=== PATIENT | male | born 1970 | race Caucasian/White ===

== ENCOUNTER 2023-02-08 06:52 | Outpatient (OUT) | payer OTHER, SELFPAY | END 2023-02-08 06:53 | disposition home or self-care (01) | LOC: SLEEP 06:52 | PROVIDERS: PCP Psychiatry & Neurology Neurology; Visit Provider Psychiatry & Neurology Neurology | DX: G47.33 Obstructive sleep apnea (adult) (pediatric) (principal); G47.11 Idiopathic hypersomnia with long sleep time | CPT/HCPCS: 95805 ==

== ENCOUNTER 2023-08-25 10:45 | Outpatient (OUT) | payer OTHER, SELFPAY | END 2023-08-25 10:46 | disposition home or self-care (01) | LOC: LAB 10:45 | PROVIDERS: PCP Psychiatry & Neurology Neurology; Visit Provider Nurse Practitioner Family | DX: E29.1 Testicular hypofunction (principal) | CPT/HCPCS: 36415; 84402; 84403 ==

== ENCOUNTER 2024-10-05 09:08 | Outpatient (OUT) | payer OTHER, SELFPAY ==
--- OUTSIDE RECORDS SUMMARY | 2024-10-05 09:13 | XMS_ITS | Encounter Summary ---
Author Organization [facility] Address [address] [place] [address] Care Team Providers Care Treating Plant Pumper Name Role Phone Ron Amaro MD Unavailable [phone] Glo Martinez CNP Primary Care Provider [phone] Source Comments In the event this information is protected by the Federal Confidentiality of Alcohol and Drug AbusePatient Records regulations: The Federal rules restrict any use of the information to criminally investigate or prosecute any alcohol or drug abuse patient.[facility] Encounter Details Date Type Department Care Team (Late st Contact Info) Description 05/23/2023 Patient Msg Urology [address] [phone] Katrina Frias, HUA.VICE PRESIDENT BUSINESS & CORPORATE DEVELOPMENT [address], [address] [place] [address] Appointment Request Social History Tobacco Use Types Packs/Day Years Used Date Smoking Tobacco: Never Smokeless Tobacco: Never Alcohol Use Standard Drinks/Week Comments Not Currently 0 (1 standard drink = 0.6 oz pur e alcohol) Area Deprivation Index Answer Date Dwayne rded National Score (1-100), lower number is lower [facility] 78 09/14/2022 State Score (1-10), lower number is lower risk 6 09/14/2022 Data from: https://www.neighborhoodatlas.medicine.[facility].edu/. Last address used for calculation [address] 09/14/2022 Sex and Gender Information Value Date Recorded Sex Assigned at Male 07/04/2021 2:44 PM EDT Legal Sex Male 9:49 AM EST Gender Identity Male 06/07/2021 5:24 PM EST Sexual Orientation Not on file documented as of this encounter Plan of Treatment Upcoming Encounters Date Type Department Care Team (Late st Contact Info) Description 01/16/2025 10:40 AM EDT Office Visit Urology [address] [phone] Katrina Frias, PREPPER.[address] [address] History of Penile Cancer documented as of this encounter Visit Diagnoses Not on filedocumented in this encounter Care Teams Treating Plant Pumper Relationship Specialty Start Date End Date Glo Martinez CNP [address] [place] [phone] PCP - General Family Medicine 06/15/21 Ron Amaro MD Urology 06/02/21 documented as of this encounter
--- OUTSIDE RECORDS SUMMARY | 2024-10-05 09:13 | XMS_ITS | Clinical Summary ---
Author Organization [facility] Address [address] [place] [address] Care Team Providers Care Paper Cap Machine Operator Name Role Phone Unavailable Primary Care Provider Unavailabl e Medications losartan (COZAAR) 50 MG tabletIndications :Primary hypertension TAKE 1 TABLET DAILY 90 tablet 05/17/2024 Active escitalopram (LEXAPRO) 20 MG tablet TAKE 1 TABLET DAILY 90 tablet 05/27/2024 Active Encounters Date Type Department Care Team Description 08/21/2024 Refill [facility] Primary Care [address] [address] Glo Martinez APRN - DEVELOPMENT ADMINISTRATOR Medication Refill 08/12/2024 Refill [facility] [address] [address] Glo Martinez APRN - DEVELOPMENT ADMINISTRATOR Medication Refill 07/25/2024 Refill [facility] [address] [address] Glo Martinez APRN - DEVELOPMENT ADMINISTRATOR Medication Refill from Last 3 Months Social History Tobacco Use Types Packs/Day Years Used Date Smoking Tobacco: Never Assessed Sex and Gender Information Value Date Recorded Sex Assigned at Not on file Legal Sex Male 1:41 AM EST Gender Identity Not on file Sexual Orientation Not on file Plan of Treatment Not on file
--- OUTSIDE RECORDS SUMMARY | 2024-10-05 09:13 | XMS_ITS | Clinical Summary ---
Author Organization [facility] Address [address] [place], [place] [id number] Care Team Providers Care Technical Sales Engineer Name Role Phone Ron Amaro MD Unavailable Glo Martinez CNP Primary Care Provider Allergies Active Allergy Reactions Criticality Noted Date Comments Aspirin Swelling 05/31/2021 Ibuprofen Swelling 05/31/2021 Medications empagliflozin (JARDIANCE) 10 mg tablet Take 10 mg by mouth daily with breakfast. Active escitalopram oxalate (LEXAPRO) 20 mg tablet Take 20 mg by mouth once daily. Active fenofibrate nanocrystallized (TRICOR) 145 mg tablet Take 145 mg by mouth once daily. Active hydroCHLOROthiazide (HYDRODIURIL, ESIDRIX) 25 mg tablet Take 25 mg by mouth once daily. Active losartan (COZAAR) 50 mg tablet Take 50 mg by mouth once daily. Active lovastatin 40 mg tablet Take 40 mg by mouth daily at bedtime. Active montelukast (SINGULAIR) 10 mg tablet Take 10 mg by mouth daily at bedtime. Active naproxen (NAPROSYN) 500 mg tablet Take 500 mg by mouth twice daily with meals. Active sildenafil (VIAGRA) 100 mg tablet Take 100 mg by mouth as needed. Active SITagliptin-metFORM IN (JANUMET) 50-1,000 mg per tablet Take 1 tablet by mouth twice daily with meals. Active syringe w-needle,disposab,3 mL (MONOJECT 3CC SYR [id number]/2 MISC) Active fexofenadine (VERONICA) 180 mg tablet Take 180 mg by mouth. 05/11/19 22 Active testosterone cypionate (DEPO-TESTOSTERONE) 200 mg/mL injection INJECT 1 ML IN THE MUSCLE TWICE PER WEEK 08/11/19 22 Active emtricitabine-tenof ovir disoproxil fumerate (TRUVADA) 200-300 mg per tablet 04/19/20 23 Active semaglutide (OZEMPIC) 0.25 mg or 0.5 mg(2 mg/1.5 mL) pen Inject 1 mg subcutaneously one time a week. 07/12/19 24 Active modafinil (PROVIGIL) 200 mg tablet Take 1 tablet by mouth once daily. 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 07/09/2021 Assessment & Plan (07/09/2021 9:51 AM EDT): Assessment: Testicular CA 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 Assessment & Plan (07/09/2021 9:51 AM EDT): Assessment: Upcoming Procedure 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 Morbid obesity with BMI of 40.0-44.9, adult 10/2021 Assessment & Plan (07/09/2021 9:51 AM EDT): Assessment: BMI 40.75 Family History Medical History Relation Comments Cataract Father Cancer Maternal Uncle No Ocular Disease Mother Cataract Paternal Grandfather Diabetes Paternal Grandfather Glaucoma Paternal Grandfather Hypertension Paternal Grandfather Relation Status Comments Father Maternal Uncle Mother Paternal Grandfather Social History Tobacco Use Types Packs/Day Years Used Date Smoking Tobacco: Never Smokeless Tobacco: Never Tobacco Cessation:Counseling Given: Not Answered Alcohol Use Standard Drinks/Week Comments Not Currently 0 (1 standard drink = 0.6 oz pur e alcohol) Area Deprivation Index Answer Date Dwayne rded National Score (1-100), lower number is lower [facility] 78 09/14/2022 State Score (1-10), lower number is lower risk 6 09/14/2022 Data from: https://www.neighborhoodatlas.medicine.[facility].edu/. Last address used for calculation [address] 09/14/2022 Sex and Gender Information Value Date Recorded Sex Assigned at Male 07/04/2021 2:44 PM EDT Legal Sex Male 9:49 AM EST Gender Identity Male 06/07/2021 5:24 PM EST Sexual Orientation Not on file Last Filed Vital Signs Vital Sign Reading Time Taken Comments Blood Pressure 160/78 12/07/2022 12:53 PM EDT Pulse 88 12/07/2022 12:53 PM EDT Temperature 37.2 C (99 F) 07/13/2021 12:35 PM EDT Respiratory Rate 18 07/13/2021 1:05 PM EDT Oxygen Saturation 99% 07/13/2021 1:05 PM EDT Inhaled Oxygen Concentration - - Weight 110.8 kg (244 lb 4.3 oz) 024 10:44 AM EDT Height 175.3 cm (5' 9 ) 01/17/2024 10:4 4 AM EDT Body Mass Index 36.07 01/17/2024 10:44 AM EDT Plan of Treatment Upcoming Encounters Date Type Department Care Team (Late st Contact Info) Description 01/16/2025 10:40 AM EDT Office Visit Urology [address] [address] Katrina Frias P, POWER TONG OPERATOR.FRAME MAKER [address] [place] [address], [address] [address] History of Penile Cancer Health Maintenance Due Date Last Done Comments HbA1C 09/05/1976 Diabetic Foot Exam 09/05/1981 Urine Albumin:Creatinine Ratio 09/05/1981 Annual PCP Team Chronic Dise ase Visit 09/05/1989 Anxiety Screening 09/05/1989 Depression Screening 09/05/1989 HIV Screening 09/05/1989 Hepatitis C Screening 09/05/1989 LDL Cholesterol 09/05/1989 CT Colonography 09/05/2016 Cologuard (FIT-DNA) 09/05/2016 Colonoscopy 09/05/2016 Colorectal Cancer Screening 09/05/2016 Fecal Occult Blood 09/05/2016 Sigmoidoscopy 09/05/2016 Dilated Retinal Exam 09/15/2023 09/14/2022, 09/07/19 22 Covid-19 Vaccine (2023-2 5 season) 2023 03/09/2023, 03/08/2022, 09/17/2021, Additional history exists Influenza Vaccine (Season Ended) 2024 03/09/2023, 11/26/2021, 02/18/2021, Additional history exists DTaP,Tdap,Td Vaccine (3 - Td or Tdap) 03/09/2033 03/09/2023, 09/17/2021 Hepatitis B Vaccine Completed 05/28/2003, 12/11/2002, 11/08/2002 Pneumococcal Vaccine: 50+ Completed 11/26/2021 Shingrix Vaccine Completed 11/26/2021, 09/17/2021 [place] [address] [facility] SUPERMED PPO [facility] Care Teams Technical Sales Engineer Relationship Specialty Start Date End Date Glo Martinez CNP [address] [place] [address] [place] [address] PCP - General Family Medicine 06/15/21 Ron Amaro MD Urology 06/02/21
--- OUTSIDE RECORDS SUMMARY | 2024-10-05 09:13 | XMS_ITS | Encounter Summary ---
Author Organization [facility] Address [address] [place] [address] Care Team Providers Care Dowel Pointer Name Role Phone Ron Amaro MD Unavailable [phone] Glo Martinez CNP Primary Care Provider [phone] Source Comments In the event this information is protected by the Federal Confidentiality of Alcohol and Drug AbusePatient Records regulations: The Federal rules restrict any use of the information to criminally investigate or prosecute any alcohol or drug abuse patient.[facility] Encounter Details Date Type Department Care Team (Late st Contact Info) Description 10/04/2021 Get Medical Advice Urology [address] [phone] Edgar Cardona MD [address] [place] [address] Disability paper work Social History Tobacco Use Types Packs/Day Years Used Date Smoking Tobacco: Never Smokeless Tobacco: Never Alcohol Use Standard Drinks/Week Comments Not Currently 0 (1 standard drink = 0.6 oz pur e alcohol) Area Deprivation Index Answer Date Dwayne rded National Score (1-100), lower number is lower [facility] 73 09/09/2021 State Score (1-10), lower number is lower risk N ot on file 09/09/2021 Data from: https://www.neighborhoodatlas.medicine.[facility].edu/. Last address used for calculation [address] 09/09/2021 Sex and Gender Information Value Date Recorded Sex Assigned at Male 07/04/2021 2:44 PM EDT Legal Sex Male 9:49 AM EST Gender Identity Male 06/07/2021 5:24 PM EST Sexual Orientation Not on file COVID-19 Exposure Response Date Recorded In the last 10 days, have yo u been in contact with someone who was confirmed or suspected to have Coronavirus/COVID-19? No / Unsure 09/17/2021 12:27 PM EDT documented as of this encounter Plan of Treatment Upcoming Encounters Date Type Department Care Team (Late st Contact Info) Description 01/16/2025 10:40 AM EDT Office Visit Urology [address] [place] [address] Katrina Frias, TAILER IN.LINTER TENDER [address] [place] [phone] History of Penile Cancer documented as of this encounter Visit Diagnoses Not on filedocumented in this encounter Care Teams Dowel Pointer Relationship Specialty Start Date End Date Glo Martinez CNP [address] [place] [phone] PCP - General Family Medicine 06/15/21 Ron Amaro MD Urology 06/02/21 documented as of this encounter
--- OUTSIDE RECORDS SUMMARY | 2024-10-05 09:13 | XMS_ITS | Encounter Summary ---
Author Organization [facility] Address [address] [place] [address] Care Team Providers Care General Supervisor Name Role Phone Unavailable Primary Care Provider Unavailabl e Reason for Visit * Reason Comments Medication Refill Encounter Details Date Type Department Care Team (Late st Contact Info) Description 08/12/[address] [facility] Primary Care [address] [facility] [address] [place] [address] Glo Martinez, JACK FRAME TENDER - PET CARE ASSOCIATE [address] [facility] [address] [place] [phone] Medication Refill Social History Tobacco Use Types Packs/Day Years Used Date Smoking Tobacco: Never Assessed Sex and Gender Information Value Date Recorded Sex Assigned at Not on file Legal Sex Male 1:41 AM EST Gender Identity Not on file Sexual Orientation Not on file documented as of this encounter Plan of Treatment Not on file documented as of this encounter Visit Diagnoses Diagnosis Primary hypertension Unspecified essential hypertension documented in this encounter
--- OUTSIDE RECORDS SUMMARY | 2024-10-05 09:13 | XMS_ITS | Clinical Summary ---
Author Organization [facility] Address [address] [place] [address] Care Team Providers Care Supervisor Cigar Making Hand Name Role Phone Glo Martinez NURSE OUTREACH CASE MANAGER Unavailable Allergies Active Allergy Reactions Criticality Noted Date Comments Aspirin Swelling,Unknown 05/31/2021 Ibuprofen Swelling,Unknown 05/31/2021 Medications empagliflozin (Jardiance) 10 MG Take 10 mg by mouth in the morning. Take with meals. Active emtricitabine-tenof ovir DF (Truvada) 200-300 MG tablet 04/19/20 23 Active escitalopram (Lexapro) 20 MG tablet 1 (one) time each day at the same time Active fenofibrate (Tricor) 145 MG tablet Take 145 mg by mouth Daily Active True Metrix Blood Glucose Test test strip USE DIRECTED TO CHECK BLOOD SUGAR DAILY 09/01/19 24 Active hydroCHLOROthiazide (HYDRODiuril) 25 MG tablet 1 (one) time each day at the same time Active TRUEplus Lancets 28G misc USE ONCE DAILY 09/01/19 24 Active losartan (Cozaar) 50 MG tablet 1 (one) time each day at the same time Active lovastatin (Mevacor) 20 MG tablet 07/26/19 24 Active montelukast (Singulair) 10 MG tablet 1 (one) time each day at the same time Active Ozempic, 1 MG/DOSE, 4 MG/3ML solution pen-injector 07/26/19 24 Active sildenafil (Viagra) 100 MG tablet TAKE 1 TABLET BY MOUTH 30 TO 60 MINUTES PRIOR TO DESIRED INTIMACY Active Janumet 50-1000 MG tablet Take 1 tablet by mouth in the morning and 1 tablet in the evening. Take with meals. Active sulfamethoxazole-tr imethoprim (Bactrim DS) 800-160 MG per tablet Take 1 tablet by mouth in the morning and 1 tablet before bedtime. Active testosterone cypionate (Depo-Testosterone) 200 MG/ML injection INJECT 1 ML ONCE A WEEK 09/01/19 24 Active predniSONE (Deltasone) 20 MG tabletIndications:P haryngitis, unspecified etiology,Non-recurr ent acute serous otitis media of both ears 3 pills days 1 and 2, 2 pills days 3 and 4, 1 pill day 5 and 6, 1/2 pill days 7 and 8. 13 tablet 09/10/19 24 Active modafinil (Provigil) 200 MG tabletIndications:D aytime hypersomnolence Take 1 tablet (200 mg) by mouth in the morning. 30 tablet 2 03/20/20 24 Active methylphenidate (Ritalin) 5 MG tabletIndications:D aytime hypersomnolence Take 1 tablet (5 mg) by mouth Daily 30 tablet 09/18/19 25 Active methylphenidate (Ritalin) 5 MG tablet Take 5 mg by mouth Daily as needed 08/10/19 25 025 Discontin ued(Reord er) Encounters Date Type Department Care Team Description 09/17/2024 Refill [facility] [address] [place] [phone] Skylar Salomon MA Daytime hypersomnolence (Primary Dx) from Last 3 Months Social History Tobacco Use Types Packs/Day Years Used Date Smoking Tobacco: Unknown Tobacco Cessation:Counseling Given: Not Answered Sex and Gender Information Value Date Recorded Sex Assigned at Not on file Legal Sex Male 6:46 PM EDT Gender Identity Not on file Sexual Orientation Not on file Last Filed Vital Signs Vital Sign Reading Time Taken Comments Blood Pressure 148/84 01/24/2024 3:29 PM EDT Pulse 79 01/24/2024 3:29 PM EDT Temperature 36.4 C (97.5 F) 09/10/2023 12:00 PM EDT Respiratory Rate - - Oxygen Saturation 96% 09/10/2023 12:00 PM EDT Inhaled Oxygen Concentration - - Weight 111 kg (245 lb) 01/24/2024 3:29 PM EDT Height 175.3 cm (5' 9 ) 01/24/2024 3:29 PM EDT Body Mass Index 36.18 01/24/2024 3:29 PM EDT Plan of Treatment Health Maintenance Due Date Last Done Comments CT Colonography 1971 FIT-DNA 1971 FIT 1971 FOBT 1971 Sigmoidoscopy 1971 Influenza Vaccine (Season Ended) 2024 03/09/2023, 11/26/2021, 02/18/2021, Additional history exists Colonoscopy 12/09/2031 12/08/2021 Colorectal Cancer Screening 12/09/2031 Insurance [employer] Care Teams Supervisor Cigar Making Hand Relationship Specialty Start Date End Date Glo Martinez NP [address] [place] [phone] Referring Physician Family Medicine 01/24/24
--- OUTSIDE RECORDS SUMMARY | 2024-10-05 09:13 | XMS_ITS | CCD ---
Author Organization [facility] Care Team Providers Care Assistant Center Manager Name Role Phone Estrella Amaro Unavailable Jasmeet Martinez Primary Care Provider [phone] Jasmeet Martinez Primary Care Physician Estrella Amaro Unavailable Jasmeet Martinez Primary Care Provider REQUEST, NONE LISTED Primary Care Unavaila ble PERLAALEAH Admitting Unavailable PERLAALEAH KINCAID Attending Unavailable REQUEST, NONE LISTED Primary Care Unavaila ble PERLAALEAH Admitting Unavailable PERLA, ALEAH Attending Unavailable PERLAALEAH Consulting Unavailable REQUEST, NONE LISTED Primary Care Unavaila vicente AMARO, DR ESTRELLA Lim Admitting Unavailable ALEAH DUNCAN Consulting Unavailable ENDER, DR ESTRELLA Lim Attending Unavailable MISC, DR FOSTER Attending Unavailable MISC, DR FOSTER Consulting Unavailable MISC, DR FOSTER Admitting Unavailable REQUEST, NONE LISTED Primary Care Unavaila Estrella Bynum Unavailable Estrella Amaro MD Unavailable [phone] Jasmeet Martinez Primary Care Provider JASMEET MARTINEZ Primary Care Unavailable JOURDAN FRIAS Referring Unavailable JOURDAN FRIAS Attending Unavailable EDGAR DO Referring Unavailabl e JASMEET MARTINEZ Primary Care Unavailable JOURDAN FRIAS Attending Unavailable ANETA KUMAR Attending Unavailable CLARICE CIFUENTES Attending Unavailable Rodney Markham Attending Unavailable Rodney Markham Referring Unavailable Rodney Markham Admitting Unavailable Rodney Markham Attending Unavailable Juan GLYNN, Jasmeet Unavailable Allergies Allergy Classification Reported Allergen(s) Allergy Type Date of Onset Reaction(s) Facility (20 sources) Aspirin; Translations: [aspirin] Drug Allergy 2 Swelling, Swelling (morphologic abnormality) [facility] (20 sources) Ibuprofen; Translations: [ibuprofen] Drug Allergy 2 Swelling, Swelling (finding), Unknown [facility] (2 sources) Aspirin Drug Allergy 4 [facility] (2 sources) Ibuprofen Drug Allergy 4 [facility] (5 sources) Aluminum aspirin Drug Allergy 2 Swelling, Unknown [facility] Medications Current Medications Medication Drug Class(es) Dates Sig (Normalized) Sig (Original) busPIRone hydrochloride 10 mg oral tablet (1 source) Start: 06-19-2024 Buspirone 10 mg tablet Active MG PO June 19, 2024 12:00am cephalexin 500 mg oral capsule (4 sources) Cephalosporin Antibacterial Start: 08-23-2021 End: 08-28-2021 take 1 capsule by mouth three times daily cephALEXin (KEFLEX) 500 mg capsule Take 1 capsule by mouth three times daily for 5 days. 15 capsule 0 08/23/2021 08/28/2021 Active Start: 07-13-2021 End: 07-20-2021 take 1 capsule by mouth three times daily cephALEXin (KEFLEX) 500 mg capsule Take 1 capsule by mouth three times daily for 7 days. 21 capsule 0 07/13/2021 07/20/2021 Active Comment on above: Take 1 capsule by mo [facility] three times daily for 7 days. Take 1 capsule by mo [facility] three times daily for 5 days. clobetasol propionate 0.5 mg/ml topical cream (10 sources) Corticosteroid Start: 03-06-2023 End: 07-12-2023 clobetasol (TEMOVATE) 0.05 % cream Indications: Lichen sclerosus of penis Apply to affected area two times a day. Use for a week at a time as needed 45 g 3 07/12/2023 Active Start: 08-15-2022 clobetasol (TE MOVATE) 0.05 % cream Apply to affected area twice daily. Use for a week at a time as needed 45 g 3 08/15/2022 Active Comment on above: Apply to affected ar ea twice daily. Use for a week at a time as needed Apply to affected ar ea two times a day. Use for a week at a time as needed empagliflozin 10 mg oral tablet (20 sources) Sodium-Glucose Cotransporter 2 Inhibitor Start: 06-19-2024 Empagliflozin (Jardiance) 10 mg tablet Active MG PO June 19, 2024 12:00am Start: 05-11-2021 take 1 tablet by tony th once daily in the morning Jardiance 10 mg oral tablet 10 mg = 1 tab(s), Oral, qAM, Refills(s) 0, Blood glucose Start Date: 05/11/21 Status: Ordered Comment on above: Take 10 mg by mouth daily with breakfast. emtricitabine 200 mg / tenofovir disoproxil fumarate 300 mg oral tablet (9 sources) Human Immunodeficiency Virus Nucleoside Analog Reverse Transcriptase Inhibitor Start: 04-19-2023 emtricitabine-teno fovir DF (Truvada) 200-300 MG tablet 04/19/2023 Active Start: 04-19-2023 emtricitabine- tenofovir disoproxil fumerate (TRUVADA) 200-300 mg per tablet 04/19/2023 Active Emtricitabine-Tenofovir (Tdf) 200-300 mg tablet (1 source) Start: 06-19-2024 Emtricitabine-Tenofovir (Tdf) 200-300 mg tablet Active TAB PO June 19, 2024 12:00am escitalopram 20 mg oral tablet (20 sources) Serotonin Reuptake Inhibitor Start: 06-19-2024 Escitalopram Oxalate 20 mg tablet Active MG PO June 19, 2024 12:00am Start: 05-11-2021 take 1 tablet by tony th once daily escitalopram 20 mg Tab 20 mg = 1 tab(s), Oral, Daily, Refills(s) 0, Depression Start Date: 05/11/21 Status: Ordered Comment on above: Take 20 mg by mouth once daily. fenofibrate 145 mg oral tablet (20 sources) Peroxisome Proliferator Receptor alpha Agonist Start: 2021 take 1 tablet by mouth once daily fenofibrate 145 mg Tab 145 mg = 1 tab(s), Oral, Daily, Refills(s) 0, High cholesterol Start Date: 05/11/21 Status: Ordered Comment on above: Take 145 mg by mouth once daily. Fenofibrate Nanocrystallized 145 mg tablet (1 source) Start: 2024 Fenofibrate Nanocrystallized 145 mg tablet Active MG PO June 19, 2024 12:00am fexofenadine hydrochloride 180 mg oral tablet (20 sources) Histamine-1 Receptor Antagonist Start: 2021 fexofenadine (VERONICA) 180 mg tablet Take 180 mg by mouth. 05/11/2021 Active Comment on above: Take 180 mg by mouth . hydroCHLOROthiazide 25 mg oral tablet (20 sources) Thiazide Diuretic Start: 2024 Hydrochlorothiazide 25 mg tablet Active MG PO June 19, 2024 12:00am Start: 05-11-2021 take 1 tablet by tony th once daily hydrochlorothiazide 25 mg Tab 25 mg = 1 tab(s), Oral, Daily, Refills(s) 0, High blood pressure Start Date: 05/11/21 Status: Ordered Comment on above: Take 25 mg by mouth once daily. losartan potassium 50 mg oral tablet (20 sources) Angiotensin 2 Receptor Timmy Start: 06-19-2024 Losartan 50 mg tablet Active MG PO June 19, 2024 12:00am Start: 05-11-2021 take 1 tablet by tony th once daily losartan 50 mg Tab 50 mg = 1 tab(s), Oral, Daily, Refills(s) 0, High blood pressure Start Date: 05/11/21 Status: Ordered Comment on above: Take 50 mg by mouth once daily. lovastatin 20 mg oral tablet (20 sources) HMG-CoA Reductase Inhibitor Start: 07-26-2023 Lovastatin 20 mg tablet Active MG PO June 19, 2024 12:00am Start: 05-11-2021 take 1 tablet by tony th once daily lovastatin 40 mg Tab 40 mg = 1 tab(s), Oral, Daily, Refills(s) 0, High cholesterol Start Date: 05/11/21 Status: Ordered Comment on above: Take 40 mg by mouth daily at bedtime. metFORMIN hydrochloride 1000 mg / SITagliptin 50 mg oral tablet (20 sources) Biguanide, Dipeptidyl Peptidase 4 Inhibitor Start: 06-19-2024 Sitagliptin Phos-Metformin (Janumet) 50-1,000 mg tablet Active TAB PO June 19, 2024 12:00am Start: 05-11-2021 take 1 tablet by tony th twice daily Janumet XR 50 mg-1000 mg oral tablet, extended release 1 tab(s), Oral, BID, Refill(s) 0, Blood glucose Start Date: 05/11/21 Status: Ordered Start: 05-11-2021 take 1 tablet by tony twice daily Janumet XR 50 mg-1000 mg oral tablet, extended release 1 tab(s), Oral, BID, Refill(s) 0, Blood glucose Start Date: 05/11/21 Status: Ordered Comment on above: Take 1 tablet by tony twice daily with meals. methylphenidate hydrochloride 5 mg oral tablet (2 sources) Central Nervous System Stimulant Start: 08-10-19 End: 09-18-19 take 1 tablet by mouth once daily methylphenidate (Ritalin) 5 MG tablet Indications: Daytime hypersomnolence Take 1 tablet (5 mg) by mouth Daily 30 tablet 09/17/2024 Active modafinil 200 mg oral tablet (11 sources) Sympathomimetic-l ellie Agent Start: 03-20-20 Modafinil 200 mg tablet Active MG PO June 19, 2024 12:00am Start: 05-28-2023 End: 03-20-2024 take 1 tablet by mouth in the morning modafinil (Provigil) 200 MG tablet Take 200 mg by mouth in the morning. 05/28/2023 03/20/2024 Discontinued (Reorder) Start: 05-28-2023 take 1 tablet by tnoy in the morning modafinil (Provigil) 100 MG tablet Take 100 mg by mouth in the morning. 05/28/2023 Active Comment on above: Take 1 tablet by tony once daily. montelukast 10 mg oral tablet (20 sources) Leukotriene Receptor Antagonist Start: 06-19-2024 Montelukast 10 mg tablet Active MG PO June 19, 2024 12:00am Start: 05-11-2021 take 1 tablet by tony once daily montelukast 10 mg Tab 10 mg = 1 tab(s), Oral, Daily, Refills(s) 0, Allergy symptoms Start Date: 05/11/21 Status: Ordered Comment on above: Take 10 mg by mouth daily at bedtime. naproxen 500 mg oral tablet (20 sources) Nonsteroidal Anti-inflammatory Drug take 1 tablet by mouth twice daily at mealtime naproxen (NAPROSYN) 500 mg tablet Take 500 mg by mouth twice daily with meals. Active Comment on above: Take 500 mg by mouth twice daily with meals. Ozempic, 1 MG/DOSE, 4 MG/3ML solution pen-injector (5 sources) Start: 07-26-19 Ozempic, 1 MG/DOSE, 4 MG/3ML solution pen-injector 07/26/2023 Active polyethylene glycol 3350 [id number] mg / potassium chloride 1480 mg / sodium bicarbonate 5720 mg / sodium chloride 89512 mg powder for oral solution (1 source) Osmotic Laxative Start: 11-02-19 NuLYTELY Stover oral powder for reconstitution See Instructions, 1 EA, Refill(s) 0, Prior to colonoscopy., [id number], 175, cm, 11/01/21 15:49:00 EDT, Height/Length Dosing, 121.9, kg, 11/01/21 15:49:00 EDT, Weight Dosing Start Date: 11/01/21 Status: Ordered predniSONE 20 mg oral tablet (5 sources) Start: 09-10-19 predniSONE (Deltasone) 20 MG tablet Indications: Pharyngitis, unspecified etiology , Non-recurrent acute serous otitis media of both ears 3 pills days 1 and 2, 2 pills days 3 and 4, 1 pill day 5 and 6, 1/2 pill days 7 and 8. 13 tablet 09/10/2023 Active 0.25 mg, 0.5 mg dose 1.5 ml semaglutide 1.34 mg/ml pen injector (20 sources) Start: 07-12-19 semaglutide (OZEMPIC) 0.25 mg or 0.5 mg(2 mg/1.5 mL) pen Inject 1 mg subcutaneously one time a week. 07/12/2023 Active Start: 05-11-2021 End: 07-12-2023 Ozempic 2 mg/1.5 mL (0.25 mg or 0.5 mg dose) subcutaneous solution 0.25 mg, SubCutaneous, qWeek, Refill(s) 0 Start Date: 05/11/21 Status: Ordered Comment on above: Inject 0.25 mg subcu taneously one time a week. Inject 1 mg subcutan eously one time a week. Semaglutide (1 source) Start: 06-19-2024 Semaglutide (Ozempic) 1 mg/dose (4 mg/3 mL) pen injector Active MG SUBCUT June 19, 2024 12:00am sildenafil 100 mg oral tablet (20 sources) Phosphodiesterase 5 Inhibitor Start: 06-19-2024 Sildenafil 100 mg tablet Active MG PO June 19, 2024 12:00am Start: 05-11-2021 take 1 tablet by tony once daily sildenafil 100 mg Tab 100 mg = 1 tab(s), Oral, Daily, Refills(s) 0, Erectile dysfunction Start Date: 05/11/21 Status: Ordered sildenafil ([facility]) 100 MG tablet TAKE 1 TABLET BY MOUTH 30 TO 60 MINUTES PRIOR TO DESIRED INTIMACY Active Comment on above: Take 100 mg by mouth as needed. sulfamethoxazole 800 mg / trimethoprim 160 mg oral tablet (14 sources) Dihydrofolate Reductase Inhibitor Antibacterial, Sulfonamide Antimicrobial Start: 09-05-2021 End: 07-11-2022 sulfamethoxazole-t rimethoprim (BACTRIM DS,SEPTRA DS) 800-160 mg per tablet Start: 09-05-2021 End: 09-12-2021 Bactrim D.S. 800 mg-160 mg T ab 1 tab(s), Oral, BID for 7 day(s), 14 tab(s), Refill(s) 0, [id number], 175, cm, 09/05/21 12:47:00 EDT, Height/Length Dosing, 124.7, kg, 09/05/21 12:47:00 EDT, Weight Dosing Start Date: 09/05/21 Stop Date: 09/12/21 Status: Ordered syringe w-needle,disposab,3 mL (MONOJECT 3CC SYR 20CU4-4/2 MISC) (20 sources) syringe w-needle ,disposab,3 mL (MONOJECT 3CC SYR 93VP8-8/2 MISC) Active syringe w-needle ,disposab,3 mL (MONOJECT 3CC SYR 24UD7-9/2 MISC) 1 ml testosterone cypionate 200 mg/ml injection (20 sources) Androgen Start: 06-19-2024 Testosterone C ypionate 200 mg/mL oil Active MG SUBCUT June 19, 2024 12:00am Start: 09-01-2023 testosterone c ypionate (Depo-Testosterone) 200 MG/ML injection INJECT 1 ML ONCE A WEEK 09/01/2023 Active Start: 08-10-2021 testosterone c ypionate (DEPO-TESTOSTERONE) 200 mg/mL injection INJECT 1 ML IN THE MUSCLE TWICE PER WEEK 08/10/2021 Active End: 03-23-2022 testosterone 200 mg pllt by IMPLANTATION route. 0 03/23/2022 Discontinued End: 2021 testosterone cypionate 200 m g/mL kit Inject intramuscularly. 0 2021 Discontinued Comment on above: Inject intramuscular ly. by IMPLANTATION rout e. INJECT 1 ML IN THE M USCLE TWICE PER WEEK testosterone cypionate 200 mg/mL IM Pauline (8 sources) Start: 05-11-2021 testosterone cypionate 200 mg/mL IM Pauline 200 mg = 1 mL, IntraMuscular, ThuSun, Refills(s) 0, Prophylaxis Start Date: 05/11/21 Status: Ordered Completed/Discontinued Medications Medication Drug Class(es) Dates Sig (Normalized) Sig (Original) benoxinate hydrochloride 4 mg/ml / fluorescein sodium 2.5 mg/ml ophthalmic solution (2 sources) Diagnostic Dye Start: 09-14-2022 End: 09-15-2022 fluorescein-benoxi clint 0.25-0.4 % 1 Drop (FLURESS) Start: 2021 End: 09-07-2021 fluorescein-benoxinate 0.25- 0.4 % 1 Drop (FLURESS) ciprofloxacin 500 mg oral tablet (1 source) Quinolone Antimicrobial Start: 08-15-2022 End: 08-16-2022 ciprofloxacin HCl 500 mg tab(s) (CIPRO) phenylephrine hydrochloride 25 mg/ml ophthalmic solution (2 sources) alpha-1 Adrenergic Agonist Start: 09-14-2022 End: 09-15-2022 PHENYLephrine 2.5 % 1 Drop (AK-DILATE, JJ-SYNEPHRINE) Start: 2021 End: 09-07-2021 PHENYLephrine 2.5 % 1 Drop ( AK-DILATE, JJ-SYNEPHRINE) tiZANidine 4 mg oral capsule (6 sources) Central alpha-2 Adrenergic Agonist End: 2021 take 1 capsule by mouth every eight hours as needed tiZANidine HCl 4 mg capsule Take 4 mg by mouth three times daily as needed. 0 2021 Discontinued Comment on above: Take 4 mg by mouth t hree times daily as needed. tropicamide 10 mg/ml ophthalmic solution (2 sources) Anticholinergic Start: 09-14-2022 End: 09-15-2022 tropicamide 1 % 1 Drop (MYDRIACYL) Start: 2021 End: 09-07-2021 tropicamide 1 % 1 Drop (MYDR IACYL) Problems Active Problems Problem Classification Problem Date Documented Da te Episodic/Chronic Cancer of other male genital organs (10 sources) Malignant tumor of penis; Translations: [Malignant neoplasm of penis, unspecified] Onset: 05-23-2022 05-25-2021 Chronic Cancer of other male genital organs (3 sources) History of malignant neoplasm of penis; Translations: [Personal history of malignant neoplasm of other male genital organs] Onset: 01-17-2024 07-12-2023 Episodic Diabetes mellitus without complication (20 sources) Diabetes mellitus; Translations: [Type 2 diabetes mellitus without complications] Onset: 07-09-2021 07-09-2021 Chronic Diabetes mellitus without complication (8 sources) Glycosuria; Translations: [Glycosuria] Onset: 05-23-2022 Episodic Disorders of lipid metabolism (20 sources) Hypercholesterolemi a; Translations: [Pure hypercholesterolemi a, unspecified] Onset: 07-09-2021 07-09-2021 Chronic Diverticulosis and diverticulitis (5 sources) Diverticula of intestine; Translations: [Diverticulosis of intestine, part unspecified, without perforation or abscess without bleeding] Onset: 02-24-2022 Chronic Essential hypertension (20 sources) Hypertensive disorder; Translations: [Essential (primary) hypertension] Onset: 07-09-2021 07-09-2021 Chronic Genitourinary congenital anomalies (20 sources) Congenital buried penis; 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] Onset: 05-31-2021 05-31-2021 Chronic Glaucoma (2 sources) Suspected bilateral glaucoma; Translations: [Preglaucoma, unspecified, bilateral] Chronic Hemorrhoids (5 sources) Hemorrhoids; Translations: [Unspecified hemorrhoids] Onset: 02-24-2022 Episodic Other and unspecified benign neoplasm (5 sources) Polyp of colon; Translations: [Polyp of colon] Onset: 02-24-2022 Episodic Other lower respiratory disease (2 sources) Snoring; Translations: [Snoring] 01-24-2024 Episodic Other male genital disorders (16 sources) Lesion of penis; Translations: [Disorder of penis, unspecified] Chronic Other male genital disorders (2 sources) Disorder of penis; Translations: [Disorder of penis, unspecified] Onset: 05-23-2022 Chronic Other male genital disorders (3 sources) Lichen sclerosus of penis; 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] Chronic Other male genital disorders (1 source) Leukoplakia of penis; Translations: [Lichen sclerosus of penis] Onset: 07-12-2023 Chronic Other nutritional; endocrine; and metabolic disorders (20 sources) Body mass index 40+ - severely obese; Translations: [Morbid (severe) obesity due to excess calories] Onset: 05-31-2021 05-31-2021 Chronic Other screening for suspected conditions (not mental disorders or infectious disease) (20 sources) Patient encounter status; Translations: [Encounter for screening for other disorder] Onset: 11-01-2021 Episodic Residual codes; unclassified (8 sources) Sleep apnea 05-12-2021 Chronic Residual codes; unclassified (4 sources) Obstructive sleep apnea (adult) (pediatric); Translations: [OBSTRUCTIVE SLEEP APNEA] Onset: 07-20-2022 Chronic Residual codes; unclassified (2 sources) Obstructive sleep apnea syndrome; Translations: [Obstructive sleep apnea (adult) (pediatric)] 01-24-2024 Chronic Residual codes; unclassified (4 sources) Daytime somnolence; Translations: [Other hypersomnia] 01-24-2024 Chronic Residual codes; unclassified (3 sources) Family history of malignant neoplasm of digestive organ; Translations: [Family history of malignant neoplasm of digestive organs] Onset: 11-01-2021 Episodic Residual codes; unclassified (6 sources) Family history of cancer of colon 11-01-2021 Episodic Secondary malignancies (20 sources) 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; Translations: [Secondary malignant neoplasm of genital organs] Onset: 07-09-2021 07-09-2021 Chronic Unclassified (6 sources) Patient encounter status 11-01-2021 Past or Other Problems Problem Classification Problem Date Documented Date Episodic/Chronic Cancer of testis (20 sources) History of malignant neoplasm of testis; Translations: [Personal history of malignant neoplasm of testis] Onset: 07-09-2021 07-09-2021 Episodic Neoplasms of unspecified nature or uncertain behavior (20 sources) Penile intraepithelial neoplasia; Translations: [Neoplasm of unspecified behavior of other genitourinary organ] Onset: 05-31-2021 05-31-2021 Episodic Results Test Name Value Interpretation Reference Range Facility [facility]OV[facility] 01-17-2024 CNOV Office Visit (UROLMN ) TABBYFIDEL David ([id number]) 1970 M Date Time Provider Department 01/17/24 10:40 AM JOURDAN FRIASAmandeep During your visit today, we recorded the following information about you: Weight Height 110.8 kg 1.753 m Jourdan Frias, CORPORATE RECYCLING MANAGER.[facility] 01/17/2024 11:13 AM Signed HPI: Fidel Lara is a 53 year old male with history of T2DM, HTN, HLD, 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 Dr. Do did excisional biopsy of glans penis, biopsy of ventral mid to proximal penile skin lesion, and takedown of distal penile skin adhesions on 07/13/2021. Pathology was benign on the glans and distal penis but PeIN on mid ventral to proximal shaft biopsy. Fidel Lara underwent re-excision in [facility] on 08/23/2021 (1.6cm x 1cm specimen) which returned squamous hyperplasia with hyperkeratosis. Fidel Lara had excision of 3 mm ventral penile lesion in [facility] on 01/02/2023, with pathology showing benign penile tissue with mild hyperkeratosis and minimal chronic inflammation. Fidel Lara was last seen on 07/12/2023. Doing well with intermittent clobetasol cream. Had traumatic lesion to glans but no lesions warranting biopsy. Fidel Lara presents today for 6 month follow up. Feels like he is doing well. Stopped using clobetasol cream about 3 months ago because I wasn't having the problems. No bothersome LUTS. Getting Viagra and testosterone from an outside provider and feels like they are working well. Fasting blood sugar was 145 this AM. Last A1c was a couple of months ago and was good. PAST MEDICAL HISTORY Diagnosis Date Glaucoma suspect High cholesterol Hypertension Type 2 diabetes mellitus (HCC) PAST SURGICAL HISTORY Procedure Laterality Date PAST SURGICAL HISTORY OF lesions removed from penis PAST SURGICAL HISTORY OF testical removed due to cancer Social History Tobacco Use Smoking status: Never Smokeless tobacco: Never Vaping Use Vaping status: Never Used Substance Use Topics Alcohol use: Not Currently Drug use: Never Current Outpatient Medications Medication Sig Dispense Refill emtricitabine-tenofovi r disoproxil fumerate (TRUVADA) 200-300 mg per tablet semaglutide (OZEMPIC) 0.25 mg or 0.5 mg(2 mg/1.5 mL) pen Inject 1 mg subcutaneously one time a week. modafinil (PROVIGIL) 200 mg tablet Take 1 tablet by mouth once daily. clobetasol (TEMOVATE) 0.05 % cream Apply to affected area two times a day. Use for a week at a time as needed 45 g 3 testosterone cypionate (DEPO-TESTOSTERONE) 200 mg/mL injection INJECT 1 ML IN THE MUSCLE TWICE PER WEEK fexofenadine (VERONICA) 180 mg tablet Take 180 mg by mouth. empagliflozin (JARDIANCE) 10 mg tablet Take 10 mg by mouth daily with breakfast. escitalopram oxalate (LEXAPRO) 20 mg tablet Take 20 mg by mouth once daily. fenofibrate nanocrystallized (TRICOR) 145 mg tablet Take 145 mg by mouth once daily. hydroCHLOROthiazide (HYDRODIURIL, ESIDRIX) 25 mg tablet Take 25 mg by mouth once daily. losartan (COZAAR) 50 mg tablet Take 50 mg by mouth once daily. lovastatin 40 mg tablet Take 40 mg by mouth daily at bedtime. montelukast (SINGULAIR) 10 mg tablet Take 10 mg by mouth daily at bedtime. naproxen (NAPROSYN) 500 mg tablet Take 500 mg by mouth twice daily with meals. sildenafil (VIAGRA) 100 mg tablet Take 100 mg by mouth as needed. SITagliptin-metFORMIN (JANUMET) 50-1,000 mg per tablet Take 1 tablet by mouth twice daily with meals. syringe w-needle,disposab,3 mL (MONOJECT 3CC SYR 86PB5-8/2 MIS) No current facility-administered medications for this visit. ROS: Constitutional: positive for weight loss Gastrointestinal: negative PHYSICAL EXAM: Ht 175.3 cm (5' 9 ) Wt 110.8 kg (244 lb 4.3 oz) BMI 36.07 kg/m? GENERAL: Wnl nutrition, no deformities, healthy appearing. ABDOMEN: Soft, nontender, nondistended, no masses. GENITOURINARY: MALE EXAM: No scrotal lesions, cysts, rashes. Epididymes AND testes normal size, position, without mass. Urethra AND meatus normal size AND position w/o lesion or discharge. Uncircumcised penis w/o plaques, lesions, masses, or deformities. Foreskin retracts easily. The sensitive examination was discussed with the Patient or Patient's Authorized Welfare Centre Manager. As applicable, any other physician, advance practice provider, medical student, or other health professional student that will be observing or involved in the sensitive examination for educational or training purposes was discussed with the Patient or Authorized Welfare Centre Manager. The Patient or Authorized Welfare Centre Manager has agreed to proceed with the sensitive examination. (Sensitive examination includes inspection and/or palpation of the breasts, pelvis, prostate and an (more content not included)... Normal [facility] URINALYSIS, REFLEX MICROSCOP ICon 01-17-2024 Bilirubin Ql (U) Negative Negative [facility] Clarity (Unsp spec) Clear Clear [facility] Color (U) Yellow Yellow [facility] Glucose Test strip (U) [Mass/Vol] 3+ Abnormal Negative [facility] Hemoglobin Ql (U) Negative Negative [facility] Interpretation and review of laboratory results Abnormal [facility] Ketones Ql (U) Negative Negative [facility] Leukocyte esterase Test strip Ql (U) Negative Negative [facility] [facility] Ql (U) Negative Negative [facility] pH (U) 6.0 [pH] NINF - 8.5 [facility] Protein (U) [Mass/Vol] 1+ Abnormal Negative [facility] Specific gravity (U) [Rel density] 1.043 High 1.005 - 1.030 [facility] Urobilinogen Ql (U) 0.2 EU/dL 0.2-1.0 EU/dL Cl [facility] Bilirubin Ql (U) Negative Normal [facility] Comment on above: Order Comment: Speci men Type: URINE SPECIMEN Ordering Facility: [facility] Address: [address] [place] [address] Performed By: #### L [id number] #### [facility] CLIA [id number] [address] [place] [address] [place] Clarity (Unsp spec) Clear Normal Clear [facility] Comment on above: Order Comment: Speci men Type: URINE SPECIMEN Ordering Facility: [facility] Address: [address] [place] [address] Performed By: #### L [id number] #### [facility] CLIA [id number] [address] [place] [address] [place] Color (U) Yellow Normal Yellow [facility] Comment on above: Order Comment: Speci men Type: URINE SPECIMEN Ordering Facility: [facility] Address: [address] [place] [address] Performed By: #### L [id number] #### [facility] CLIA [id number] [address] [place] [address] [place] Glucose Test strip (U) [Mass/Vol] 3+ Abnormal Negative [facility] Comment on above: Order Comment: Speci men Type: URINE SPECIMEN Ordering Facility: [facility] Address: [address] [place] [address] Performed By: #### L [id number] #### [facility] CLIA [id number] [address] [place] [address] [place] Hemoglobin Ql (U) Negative Normal Negative [facility] Comment on above: Order Comment: Speci men Type: URINE SPECIMEN Ordering Facility: [facility] Address: [address] [place], [place] [id number] Performed By: #### L [id number] #### [facility] CLIA [id number] [address] [place] [address] [place] Ketones Ql (U) Negative Normal Negative [facility] Comment on above: Order Comment: Speci men Type: URINE SPECIMEN Ordering Facility: [facility] Address: [address] [place] [address] Performed By: #### L [id number] #### [facility] CLIA [id number] [address] [place] [address] [place] Leukocyte esterase Test strip Ql (U) Negative Normal Negative [facility] Comment on above: Order Comment: Speci men Type: URINE SPECIMEN Ordering Facility: [facility] Address: [address] [place] [address] Performed By: #### L [id number] #### [facility] CLIA [id number] [address] [place] [address] [place] Nitrite Ql (U) Negative Normal Negative [facility] Comment on above: Order Comment: Speci men Type: URINE SPECIMEN Ordering Facility: [facility] Address: [address] [place] [address] Performed By: #### L [id number] #### [facility] CLIA [id number] [address] [place] [address] [place] pH (U) 6.0 [pH] Normal <8.5 [facility] Comment on above: Order Comment: Speci men Type: URINE SPECIMEN Ordering Facility: [facility] Address: [address] [place], [place] [address] Performed By: #### L [id number] #### [facility] CLIA [id number] [address] [place] [address] [place] Protein (U) [Mass/Vol] 1+ Abnormal Negative [facility] Comment on above: Order Comment: Speci men Type: URINE SPECIMEN Ordering Facility: [facility] Address: [address] [place] [address] Performed By: #### L [id number] #### [facility] CLIA [id number] [address] [place] [address] [place] Specific gravity (U) [Rel density] 1.043 High 1.005-1.030 [facility] Comment on above: Order Comment: Speci men Type: URINE SPECIMEN Ordering Facility: [facility] Address: [address] [place] [address] Performed By: #### L [id number] #### [facility] CLIA [id number] [address] [place] [address] [place] Urobilinogen Ql (U) 0.2 EU/dL Normal 0.2-1.0 EU/dL [facility] Comment on above: Order Comment: Speci men Type: URINE SPECIMEN Ordering Facility: [facility] Address: [address] [place] [address] Performed By: #### L [id number] #### [facility] [place] [id number] [address] [place] [address] [place] Coding Summary.on 10-16-2023 Coding Summary. KCXGOamf88LUs6eOk+PG hl YWQ+RS1SQEYiN14exUEllJ 2xF6DADQlGXolxKAZAPUcU NhAjeyMqEN0rvZIkEFXr IC8+ZD1rTMIqVbofmOZmo3 E3nNG5Q00qjq5rZAztlKI6 RXPoOoNchlztq4atpQr1XV cuNmluOyBt CISphF51QRF5zC35Ej42mU NxhUWmo5pbuTm5NpIhQBZw FQK0rPsaINmbw9ZoCJQhV1 5iuMAlg7M1 GCMvbXevpOEzWaJdaJX3oV 3rATlicdmrn6ifahgnPfy9 rd74rBNbz7V4yMT6R3Ppnv N9YIWkoOFn JuqraJORgJ0wwrneq9wxou rzEtUdOMGdTEw4NFt7JOUk gXlwMfRuAL31GKO5XXEofk BwH4KeVGDp oZnrHiD5h9G9Bp6XB4JCLk iuD8KTVOSPPWqytEV+PC90 fl55P2GqOmkkSyg3XCXbXC R7hDI0jQ4x GNVuOHhkj0Z7aAB3G2Ojqw Owtz5ya8eeXYKuBMzdB43b aNLgd8P6GNTvuRR0GYTbyZ vlYiIwlV22 Oyc+IPQqyBeff4UmPdfvd6 pct3xhiEw7RgdyAIGympNl lJnkAJN1r4RwYn3qBHJhlO U7eEK8nD7u YtAyNvC5JXsoR856NeZrxZ WxIkvzL71pP9EryYW+PHRy Qnp1MDLdmYzhOJ9rN1GjIH RpbmctbGVm gOfnKQ5vTTKrbfcpBLKjhF 8gHNSgT7t6GfMcZkT4EEbq I8RjWWQcidshAy13eO9zDh OfTkK0PMss G7SfhcM1WYZchQYmHPwoBR L3W01vc7J3TCUsHQTaOSO5 eBG1yC2lzWhtvgrycQUixC sgdmVydGlj WTrdLLfuM552JHQyeFxfDo NvZGluZyBEYXRlOiAgMDYv MjQvMjAyNDwvdGQ+PHRkIH U1tJqxBAVw fTNqNCwjDc1nbKhilYhiKQ 3wUZUhouofQVOkjG7fDIXf iIMgvUwtWS7qQLZfwiezw1 29MjTyPSV3 LTRuzBNeB6LjhO5mGsTvXK HaNAXlS4NysVByWKafI147 PHvtOwK7YSGtdqTfH2CmLY FsaWduOiB0 t9Z9Rh4Lt4DhxrodV1QptH BlPlUoJqebKAu9D5VcHald dHI+VR47ABGsLI85QLq5NC O5mFduIRxo RZMbA3HqdA3xRiFoQGGtDA RkOyc+PHRhYmxlIHdpZHRo MJkhUVPhCiXylQvhSD2bYz 9yZGVyLWNv mNabmKHaToAlr9nxPKLqLR fgAK3ypBpfM2WvjMR7PKXh u2k1On47J59wW1CigRY+PG JmtTS1eQW0 rP1hEgKrPxL8UBowG684Yc BkeAYaHclcm4mdo5mqxKm7 AwV8NMBvrqBtyAxqBUN4y5 AbQt44F13d IHdpZHRoPSIxNSUiIHZhbG etzv9tgF8hWl8+PGNvbCB3 iGL9iP6yNtGzQuT5GItkI2 49InRvcCIv Cecli0jiz6vzzMf2AfPjST VhacXgwQjzHPJ5k4SaPo50 W3NkzLijo6WpTbj0xk04fG Skl3S2vBW3 Q7VcRLUbbizxfOYawNlhZW 5hNXPxhhimSMAydK1vWDIq U5a3FjLoSmR4COflI9Hqmw G5IWIpfWTl FCHagNNBsJ2skfahb5legb whPdAdXEQhYDe2YGh8BMIt lUpdHpLkVXZ2AjA1LUW3wP FivS4mwEgj uudnjV9fLdn+UOU9hIUdlL VWHO5sJloftEK+PHRkIHN0 rEooEJewHMXufT4rLINeH4 p5IoUvPfD1 AGgeB1KmdzP7LSKemOVeLL VzgHBPeD4azukgp9zfimag LyImWMJxUDg3JXt8UJZqrP duOiBsZWZ0 SaY2KRL5tYVgiN2qcTpwmu uinD9mUbr+QmlydGggRGF0 UKd8V2NrGtw4PPUqmIbkUO 0ncGFkZGlu Ro9axVkcbCrnON5uFZTbdw qao829JsYrl3lcPXOupKRx CRqqTCQ0M47vy7B0PWQqTY AmCAD9xMD7 lN1vgCifchdexVRklCrgsr AbxAulVJuaVUlkY175UXYf hFhdRvUzZJg7D9JgDia4SM GidNijDB9q jHUqFNojLm8rsLnbhLuhES 6uMLWfrxjoq883OaGjg0gb TFHezWSxHZrsLRJ3X22yw5 H6AIFzIOTm RSD5rVD8wI5tuRbqejernJ VmdDsgdmVydGljYWwtYWxp B209ZWAhvSfxMaRstOk3G2 ApDgh2GROf zBquJZ1lkJJbYTspAi8kmD tlaYwbQK7fZFNqxqyya697 DgOga8lpNTQvrMVqBJpdPQ T3J81ml8H8 AHDsAOCgJWD3lEO0qL7enF lnbjogbGVmdDsgdmVydGlj LXhdAVvcX884HDJxlFoaOs BhdGllbnQg CJzlQFh6O6UyPmsgrCR+PC 02VDOzXZ00oGEgrYWnm9pg hBb5LcJiDDWnRLJ7oNucFV cuj6LaJLVx Q98fzBGxx5B2SVNxmYubfI QpXnMhaPN6oP7yIXesrnix j3vxpsvtBuzfh7tmpf69dG 56E40iCSym ZHRoPSIzMCUiIHZhbGlnbj 1taK0dLn4+SODmfBC3cOT9 lI7qDHUfSgB1TTuqG735Yu RvcCIvPjxj j0aci3ekuTe3VbU3ODSknj LibZipCLH9w7WmVc58Y69d IHdpZHRoPSIyMCUiIHZhbG nbwr7ncF2f Ii8+EUBdiDU2vXO8bY5sBg AyByG8KSxuI794EkLslJKw KqexF73rK9LdiGK+PHRyPj j7IEMgjYpz HW8zbDCyTMtqRb5fBKY6Sa LuIqZuDLfrK9BzLZZqtkro rhiytSC0LYRzNVNbiV69Gi 9udDogMTBw wQQGzM8smefrg5ovsgpyFh TrLFDqUMn4QMq6IWIrxYoc ZmPcWXW8XbK8GEA2gVShnN 1hbGlnbjog yU2kT1DjODUupuaaVc61vE 4tPhNyYhB7NPkgMnq+V0FI YOcxU4uJATIBGB61BA87yC Yom1C6qAL9 V1DiAUBbvmzesuoztUH1EZ HmHDIwkZ68tMToBXxcHk4l u2F9f528AVDhNCBtcL66Kc 9udDogMTBw xQQMlO3dxhhta9hyublbMp YpXXHkLIo9DQa3NDQheLdi OvTuFXK0WnW0VLV6lWTmuU 1hbGlnbjog nB3fVti+UMYuQFVpTLv0Xr wvdGQ+TGVeLAG6nWvvOGcb JEUpyI2mMKBeF0q8PoViGe Z2LThoX9Yw JUCbhxpwLj82sE2oFmQaIl G7SAhcI8FppoX4TKFldIYu UHnmWKW3Z62pr5K0VVIxKP SoEOP1fCM7 fF3hwYwkvomecRUkmZlnrf FfzGluZNbsVKyzW571GFCh eNrbVtQeYCoxAJFcAG66DM 05yONwn3K9 eIH9O9ZsQFExuvqhgnzglH V5OSBhJIYkqN59oPHuKZlr Xb3fe7K2k432INGjSPBmlB 23Dd0ppSjd SKOixAJAbA6unpnor6zhpw aeVlKyXKUdOQy8AKr8MYGq dHmrBaAdHUF0EhA4QGR9sF VpqB9vmNqj hynloU9bWuu+TWFsZTwvdG Q+UNVcAZR6tFihJJumCOGw nL8wQSFrR0u9KhTjCqN8EG biJ1WaDKIt cwizOp96tX9pYbApCrS9DR hyP1ZxrtU6DLSfwIOyZTzs OAL8F93ml7T4XOKmGCBkOZ G7nJP6bK3t bGlnbjogbGVmdDsgdmVydG ywTKusCQdtO098MUDsmSpe Qi18uYRcbAhybgZ8B2JpTh wvdHI+PC90 LNWdTI54aLNjyCHhp2nvnN j7DoNxRAEaWGR2nGeuVNrs x1SjCISmI31laYYic0D2JS NvbGxhcHNl CbNkcOW9dG9sBJucqkzch3 rqsgkrJecvr9igkd78iT49 S03kPVzfFBTwVJBiTTNvAL IpuQmaoi0h sU2sCw9+GKFkyUH1aFB3bP 6kTjPvIjF5HLljO344SoTp rXLzVipzs2emr3ihxFf8Ud IwJSIgdmFs mZmcGST3f2CxLx22E41mSG dpZHRoPSIyMCUiIHZhbGln jb6yeM7lEb7+UB2zh3ozov 77jT96qED+ JZPzRXB0zSbeKMyxYGKvjP 5aYYxvThN5NQMpOfJsnI04 mDEtHKvdPp6ciPupyGufCQ 4wNTBpbjtm c941WfHol1orSBCrrTPaAJ ndWUI2L85gp7G6IOOxECPj EHM3mVV6aJ1zbWtyiwiraZ VmdDsgdmVy qDhvLDjgVJkyF981TGSduY sbBmMqlXMhJ4wghiEZLE2l OjwvdGQ+GYMbXSD0fAkaEC cpFOZpyE8v TJGmA2b1OcFjEsF7UGstC9 ZrrmK3JIQfiSEtTKZylATJ gE1klfbge2pqagvrKvPtVN EzCAb5KLz4 UZOskYrwAcCsRCI6EbT2HS I0lWDxcM2mfYlntzybdQ4l Oyc+RklOOjwvdGQ+PHRkIH T2cFesHNga GNPmrL7iPMRvL2j5HmMpEc H1WPxfT0PmyqK5FERjnVOl GSDykQDItI4waimjy0oqim ogIzAwMDAw NBc1KRj9TADumWpvTgDgIW A2IkI0MCV6gVJxgZ3pxIbf qplcpY1nZdp+TVJOOjwvdG Q+PHRkIHN0 fBdsUEyyXYUacO3hBNMrH6 c6VeZyPdN1LIacA9PiuuI3 DJFzeVKvXLAldGOVgZ5ywb skl7jxxxjp HiXpTCVgUWx7FAn2WRAwaG scMnTvXRI9YpV6DGL2yKUj cY2gdHjeqxqlaE6kQap+UG M9XJD4FO32 AC54T7CrCukjsEFoyRB+PH RhYmxlIHdpZHRoPScxMDAl WfEpdBwkES7uCp6jBAOfKP NvbGxhcHNl PtEjy8iyFBQrX (more content not included)... Normal [facility] XR Knee Complete 4+ [facility] Knee Complete 4+ Views Left Exam Date/Time: 10/06/2023 07:20 EDT Reason for Exam: [id number] Report IMPRESSION: NO ACUTE OSSEOUS ABNORMALITY. EXAM: XR Knee Complete 4+ Views Left HISTORY: Knee pain TECHNIQUE: AP, lateral and oblique views of the knee obtained. COMPARISON: None available FINDINGS: No acute fracture or dislocation. Mild degenerative changes. No knee joint effusion. Soft tissues are within normal limits. Ordering Provider: Rodney Markham FINAL REPORT Dictated: 10/10/2023 3:35 pm Reese Hoover DO Signed (Electronic Signature): 10/10/2023 3:35 pm Signed by: Reese Hoover DO Transcribed by: MOISÉS Technologist: GIANFRANCO Technical Comments Radiation Dose: Ka,r in mGy = . DAP = . Normal [facility] Consent for Treatmenton 09-22 Consent for Treatment [id number] 0TIFF [facility] Physician Orderon 10-06-2023 Physician Order [id number] [facility] PT - Orderson 10-05-2023 PT - Orders [id number] .[id number] [facility] CNOVon 07-12-2023 CNOV Office Visit (UROLMN ) FIDEL LARA ([id number]) 1970 M Date Time Provider Department 07/12/23 9:40 AM JOURDAN FRIAS UROAMANDO During your visit today, we recorded the following information about you: Jourdan Frias, [employer]PORATE INVESTIGATOR 07/12/2023 10:10 AM Signed HPI: Fidel Lara is a 52 year old male with history of T2DM, HTN, HLD, 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 Dr. Do did excisional biopsy of glans penis, biopsy of ventral mid to proximal penile skin lesion, and takedown of distal penile skin adhesions on 07/13/2021. Pathology was benign on the glans and distal penis but PeIN on mid ventral to proximal shaft biopsy. Fidel Lara underwent re-excision in [facility] on 08/23/2021 (1.6cm x 1cm specimen) which returned squamous hyperplasia with hyperkeratosis. Fidel Lara had excision of 3 mm ventral penile lesion in [facility] on 01/02/2023, with pathology showing benign penile tissue with mild hyperkeratosis and minimal chronic inflammation Fidel Lara presents today for 6 month follow up. Reports spot on the tip but attributes this to handjob without enough lubrication on 07/07/2023. No other lesions. Using clobetasol every 1-3 days. Each package lasts a little more than a month. Using Viagra for ED. Prescribed by PCP. Denies bothersome LUTS. Blood sugar has been a little high. Admits dietary indiscretion. Increased Ozempic to 1 mg weekly. Recently started modafinil for narcolepsy. PAST MEDICAL HISTORY Diagnosis Date Glaucoma suspect High cholesterol Hypertension Type 2 diabetes mellitus (HCC) PAST SURGICAL HISTORY Procedure Laterality Date PAST SURGICAL HISTORY OF lesions removed from penis PAST SURGICAL HISTORY OF testical removed due to cancer Social History Tobacco Use Smoking status: Never Smokeless tobacco: Never Vaping Use Vaping Use: Never used Substance Use Topics Alcohol use: Not Currently Drug use: Never Current Outpatient Medications Medication Sig Dispense Refill emtricitabine-tenofovi r disoproxil fumerate (TRUVADA) 200-300 mg per tablet semaglutide (OZEMPIC) 0.25 mg or 0.5 mg(2 mg/1.5 mL) pen Inject 1 mg subcutaneously one time a week. modafinil (PROVIGIL) 200 mg tablet Take 1 tablet by mouth once daily. clobetasol (TEMOVATE) 0.05 % cream Apply to affected area two times a day. Use for a week at a time as needed 45 g 3 testosterone cypionate (DEPO-TESTOSTERONE) 200 mg/mL injection INJECT 1 ML IN THE MUSCLE TWICE PER WEEK fexofenadine (VERONICA) 180 mg tablet Take 180 mg by mouth. empagliflozin (JARDIANCE) 10 mg tablet Take 10 mg by mouth daily with breakfast. escitalopram oxalate (LEXAPRO) 20 mg tablet Take 20 mg by mouth once daily. fenofibrate nanocrystallized (TRICOR) 145 mg tablet Take 145 mg by mouth once daily. hydroCHLOROthiazide (HYDRODIURIL, ESIDRIX) 25 mg tablet Take 25 mg by mouth once daily. losartan (COZAAR) 50 mg tablet Take 50 mg by mouth once daily. lovastatin 40 mg tablet Take 40 mg by mouth daily at bedtime. montelukast (SINGULAIR) 10 mg tablet Take 10 mg by mouth daily at bedtime. naproxen (NAPROSYN) 500 mg tablet Take 500 mg by mouth twice daily with meals. sildenafil (VIAGRA) 100 mg tablet Take 100 mg by mouth as needed. SITagliptin-metFORMIN (JANUMET) 50-1,000 mg per tablet Take 1 tablet by mouth twice daily with meals. syringe w-needle,disposab,3 mL (MONOJECT 3CC SYR [id number]/2 MISC) No current facility-administered medications for this visit. PHYSICAL EXAM: There were no vitals taken for this visit. GENERAL: Wnl nutrition, no deformities, healthy appearing. ABDOMEN: Not examined. GENITOURINARY: MALE EXAM: No scrotal lesions, cysts, rashes. Urethra AND meatus normal size AND position w/o lesion or discharge. Penis is hidden with 2 scabbed lesions at 9-10 o'clock position on glans. There are a few 1 mm papules at ventral base of penis. DATA/OR LABS TO BE REVIEWED: (Simple=1 data point; Complex= 2 or more) No results found for: PSA Creatinine (mg/dL) Date Value 07/09/2021 0.99 Testosterone (ng/dL) Date Value 08/22/2001 229 A/P: (N48.0) Lichen sclerosus of penis (primary encounter diagnosis) Plan: clobetasol (TEMOVATE) 0.05 % cream (Z85.49) History of penile cancer 52 year old male with history of penile intraepithelial neoplasia in 2021 presents for 6 month follow up. Doing well with intermittent clobetasol cream. Has traumatic lesion to glans but no lesions warranting biopsy. Refilled clobetasol cream. RTC in 6 months or sooner PRN. Reminded him that he can reach out via [employer] (including pictures) if concerning lesions develop before next visit. Jourdan Frias, H[employer].CORPORATE INVESTIGATOR Referring Provider: EDGAR DO [[id number]] Aller (more content not included)... Normal [facility] URINALYSIS, REFLEX MICROSCOP ICon 07-12-2023 Bilirubin Ql (U) Negative Negative [facility] Clarity (Unsp spec) Clear Clear [facility] Color (U) Light Yellow Yellow [facility] Glucose Test strip (U) [Mass/Vol] 4+ Abnormal Trace, Negative [facility] Hemoglobin Ql (U) Negative Negative, Trace [facility] Ketones Ql (U) Negative Negative, Trace [facility] Leukocyte esterase Test strip Ql (U) Negative Negative, 25 Rubio/uL [facility] Nitrite Ql (U) Negative Negative [facility] pH (U) 6.0 [pH] 5.0 - 8.0 [facility] Protein (U) [Mass/Vol] Negative Trace, Negative [facility] Specific gravity (U) [Rel density] 1.018 1.005 - 1.030 [facility] Urobilinogen Ql (U) Normal Normal [facility] Bilirubin Ql (U) Negative Normal Negative [facility] Comment on above: Order Comment: Speci men Type: URINE SPECIMEN Ordering Facility: [facility] Address: [address] [place] [address] Performed By: #### L [id number] #### [facility] CLIA [id number] [address] [place] [address] [place] Clarity (Unsp spec) Clear Normal Clear [facility] Comment on above: Order Comment: Speci men Type: URINE SPECIMEN Ordering Facility: [facility] Address: [address] [place] [address] Performed By: #### L [id number] #### [facility] CLIA [id number] [address] [place] [address] [place] Color (U) Light Yellow Normal Yellow [facility] Comment on above: Order Comment: Speci men Type: URINE SPECIMEN Ordering Facility: [facility] Address: [address] [place] [address] Performed By: #### L [id number] #### [facility] CLIA [id number] [address] [place] [address] [place] Glucose Test strip (U) [Mass/Vol] 4+ Abnormal Trace, Negative [facility] Comment on above: Order Comment: Speci men Type: URINE SPECIMEN Ordering Facility: [facility] Address: [address] [place] [address] Performed By: #### L [id number] #### [facility] CLIA [id number] [address] [place] [address] [place] Hemoglobin Ql (U) Negative Normal Negative, Trace [facility] Comment on above: Order Comment: Speci men Type: URINE SPECIMEN Ordering Facility: [facility] Address: [address] [place] [address] Performed By: #### L [id number] #### [facility] CLIA [id number] [address] [place] [address] [place] Ketones Ql (U) Negative Normal Negative, Trace [facility] Comment on above: Order Comment: Speci men Type: URINE SPECIMEN Ordering Facility: [facility] Address: [address] [place] [address] Performed By: #### L [id number] #### [facility] CLIA [id number] [address] [place] [address] [place] Leukocyte esterase Test strip Ql (U) Negative Normal Negative, 25 Rubio/uL [facility] Comment on above: Order Comment: Speci men Type: URINE SPECIMEN Ordering Facility: [facility] Address: [address] [place] [address] Performed By: #### L [id number] #### [facility] CLIA [id number] [address] [place] [address] [place] Nitrite Ql (U) Negative Normal Negative [facility] Comment on above: Order Comment: Speci men Type: URINE SPECIMEN Ordering Facility: [facility] Address: [address] [place] [address] Performed By: #### L [id number] #### [facility] CLIA [id number] [address] [place] [address] [place] pH (U) 6.0 [pH] Normal 5.0-8.0 [facility] Comment on above: Order Comment: Speci men Type: URINE SPECIMEN Ordering Facility: [facility] Address: [address] [place] [address] Performed By: #### L [id number] #### [facility] CLIA [id number] [address] [place] [address] [place] Protein (U) [Mass/Vol] Negative Normal Trace, Negative [facility] Comment on above: Order Comment: Speci men Type: URINE SPECIMEN Ordering Facility: [facility] Address: [address] [place] [address] Performed By: #### L [id number] #### [facility] CLIA [id number] [address] [place] [address] [place] Specific gravity (U) [Rel density] 1.018 Normal 1.005-1.030 [facility] Comment on above: Order Comment: Speci men Type: URINE SPECIMEN Ordering Facility: [facility] Address: [address] [place] [address] Performed By: #### L [id number] #### [facility] CLIA [id number] [address] [place] [address] [place] Urobilinogen Ql (U) Normal Normal Normal [facility] Comment on above: Order Comment: Speci men Type: URINE SPECIMEN Ordering Facility: [facility] Address: [address] [place] [address] Performed By: #### L [id number] #### [facility] CLIA [id number] [address] [place] [address] [place] URINALYSIS, REFLEX MICROSCOP ICon 12-07-2022 Bilirubin Ql (U) Negative Negative [facility] Clarity (Unsp spec) Clear Clear [facility] Color (U) Light Yellow Yellow [facility] Glucose Test strip (U) [Mass/Vol] 4+ Abnormal Trace, Negative [facility] Hemoglobin Ql (U) Negative Negative, Trace [facility] Ketones Ql (U) Negative Negative, Trace [facility] Leukocyte esterase Test strip Ql (U) Negative Negative, 25 Rubio/uL [facility] Nitrite Ql (U) Negative Negative [facility] pH (U) 6.5 [pH] 5.0 - 8.0 [facility] Protein (U) [Mass/Vol] Trace Trace, Negative [facility] Specific gravity (U) [Rel density] 1.028 1.005 - 1.030 [facility] Urobilinogen Ql (U) Negative Negative [facility] UA DIP, URINE (POC)on 2022 BILIRUBIN UA (POCT) Negative Negative [facility] CLARITY UA (POCT) Clear [facility] COLOR UA (POCT) Yellow [facility] GLUCOSE UA (POCT) >=1000 Abnormal Negative mg/dL [facility] HEMOGLOBIN/BLOOD UA (POCT) Negative Negative [facility] KETONE UA (POCT) Negative Negative mg/dL [facility] LEUKOCYTES UA (POCT) Negative Negative [facility] NITRITE UA (POCT) Negative Negative [facility] PH UA (POCT) 6.0 4.5 - 8.0 [facility] Protein Ql (U) Negative Negative mg/dL [facility] SPECIFIC GRAVITY UA (POCT) 1.015 1.005 - 1.030 [facility] UROBILINOGEN UA (POCT) 0.2 E.U./dL Normal E.U./dL [facility] URINALYSIS, REFLEX MICROSCOP ICon 07-11-2022 Bilirubin Ql (U) Negative Negative [facility] Clarity (Unsp spec) Clear Clear [facility] Color (U) Light Yellow Yellow [facility] Glucose Test strip (U) [Mass/Vol] 4+ Abnormal Trace, Negative [facility] Hemoglobin Ql (U) Negative Negative, Trace [facility] Ketones Ql (U) Negative Negative, Trace [facility] Leukocyte esterase Test strip Ql (U) Negative Negative, 25 Rubio/uL [facility] Nitrite Ql (U) Negative Negative [facility] pH (U) 6.0 [pH] 5.0 - 8.0 [facility] Protein (U) [Mass/Vol] Negative Trace, Negative [facility] Specific gravity (U) [Rel density] 1.031 High 1.005 - 1.030 [facility] Urobilinogen Ql (U) Negative Negative [facility] URINALYSIS, REFLEX MICROSCOP ICon 03-23-2022 Bilirubin Ql (U) Negative Negative [facility] Clarity (Unsp spec) Clear Clear [facility] Color (U) Light Yellow Yellow [facility] Glucose Test strip (U) [Mass/Vol] 4+ Abnormal Negative [facility] Hemoglobin Ql (U) Negative Negative [facility] Ketones Ql (U) Negative Negative [facility] Leukocyte esterase Test strip Ql (U) Negative Negative [facility] Nitrite Ql (U) Negative Negative [facility] pH (U) 6.5 [pH] 5.0 - 8.0 [facility] Protein (U) [Mass/Vol] Negative Negative [facility] Specific gravity (U) [Rel density] 1.019 1.005 - 1.030 [facility] Urobilinogen Ql (U) Negative Negative [facility] PSA, FREE AND TOTAL RATIOon 11-23-2021 % Free PSA 8.6 % Normal [facility] [place] Comment on above: Result Comment: The table below lists the probability of prostate cancer for men with non-suspicious VIKRAM results and total PSA between 4 and 10 ng/mL, by patient age (Lisandro et al, ALEXANDRA 1998, 279:1542). % Free PSA 50-64 yr 65-75 yr 0.00-10.00% 56% 55% 10.01-15.00% 24% 35% 15.01-20.00% 17% 23% 20.01-25.00% 10% 20% >25.00% 5% 9% Please note: Lisandro et al did not make specific recommendations regarding the use of percent free PSA for any other population of men. Performed By: #### P OTTONIEL #### [facility] [address] [place] [address] Dr. Michael Macdonald Prostate specific Ag [Mass/Vol] 2.8 ng/mL Normal 0.0-4.0 [facility] Comment on above: Result Comment: Roch e ECLIA methodology. . According to the [place] [employer], Serum PSA should decrease and remain at undetectable levels after radical prostatectomy. The AUA defines biochemical recurrence as an initial PSA value 0.2 ng/mL or greater followed by a subsequent confirmatory PSA value 0.2 ng/mL or greater. Values obtained with different assay methods or kits cannot be used interchangeably. Results cannot be interpreted as absolute evidence of the presence or absence of malignant disease. Performed By: #### P SAFREE #### [facility] [address] [address] [address] Michael Macdonald PSA, Free 0.24 ng/mL Normal N/A [facility] Comment on above: Result Comment: Sunshine ocampo ECLIA methodology. Performed By: #### P SAFREE #### [facility] [address] [address] [address] Michael Macdonald URINALYSIS, REFLEX MICROSCOP ICon 09-17-2021 Bilirubin Ql (U) Negative Negative [facility] Clarity (Unsp spec) Clear Clear [facility] Color (U) Light Yellow Yellow [facility] Glucose Test strip (U) [Mass/Vol] 4+ Abnormal Negative [facility] Hemoglobin Ql (U) Negative Negative [facility] Ketones Ql (U) Negative Negative [facility] Leukocyte esterase Test strip Ql (U) Negative Negative [facility] Nitrite Ql (U) Negative Negative [facility] pH (U) 6.0 [pH] 5.0 - 8.0 [facility] Protein (U) [Mass/Vol] Negative Negative [facility] Specific gravity (U) [Rel density] 1.027 1.005 - 1.030 [facility] Urobilinogen Ql (U) Negative Negative [facility] URINALYSIS, REFLEX MICROSCOP ICon 08-06-2021 Bilirubin Ql (U) Negative Negative [facility] Clarity (Unsp spec) Clear Clear [facility] Color (U) Colorless Yellow [facility] Glucose Test strip (U) [Mass/Vol] 4+ Abnormal Negative [facility] Hemoglobin Ql (U) Negative Negative [facility] Ketones Ql (U) Negative Negative [facility] Leukocyte esterase Test strip Ql (U) Negative Negative [facility] Nitrite Ql (U) Negative Negative [facility] pH (U) 5.5 [pH] 5.0 - 8.0 [facility] Protein (U) [Mass/Vol] Negative Negative [facility] Specific gravity (U) [Rel density] 1.010 1.005 - 1.030 [facility] Urobilinogen Ql (U) Negative Negative [facility] No Panel Information [facility] Vital Signs Date Time Vital Sign Value Performing Clinician Facility 06-19-2024 15:31-0500 Body height 175.26 cm [facility] 06-19-2024 15:31-0500 Body mass index (BMI) [Ratio] 35.7 kg/m2 [facility] 06-19-2024 15:31-0500 Body temperature 97.6 [degF] [facility] 06-19-2024 15:31-0500 Body weight 109.76 kg [facility] 06-19-2024 15:31-0500 Diastolic blood pressure 71 mm[Hg] [facility] 06-19-2024 15:31-0500 Heart rate 68 /min [facility] 06-19-2024 15:31-0500 Respiratory rate 18 /min [facility] 06-19-2024 15:31-0500 SaO2% (BldA) [Mass fraction] 98 % [facility] 06-19-2024 15:31-0500 Systolic blood pressure 116 mm[Hg] [facility] 01-24-2024 15:29-0400 Body height 175.3 cm Clarice Cifuentes MANAGER OF DIGITAL Work Phone: [facility] 01-24-2024 15:29-0400 Body mass index (BMI) [Ratio] 36.18 kg/m2 Clarice Cifuentes MANAGER OF DIGITAL Work Phone: [facility] 01-24-2024 15:29-0400 Body weight 111.13 kg Clarice Cifuentes MANAGER OF DIGITAL Work Phone: [facility] 01-24-2024 15:29-0400 Diastolic blood pressure 84 mm[Hg] Clarice Cifuentes MANAGER OF DIGITAL Work Phone: [facility] 01-24-2024 15:29-0400 Heart rate 79 /min Clarice Cifuentes MANAGER OF DIGITAL Work Phone: [facility] 01-24-2024 15:29-0400 Systolic blood pressure 148 mm[Hg] Clarice Alcazarkaitlyn MANAGER OF DIGITAL Work Phone: [facility] 01-17-2024 10:44-0400 Body height 175.3 cm Jourdan Arrigon CORPORATE RECYCLING MANAGER.CORPORATE INVESTIGATOR Work Phone: [facility] 01-17-2024 10:44-0400 Body mass index (BMI) [Ratio] 36.07 kg/m2 Jourdan Arrigon CORPORATE RECYCLING MANAGER.CORPORATE INVESTIGATOR Work Phone: [facility] 01-17-2024 10:44-0400 Body weight 110.8 kg Jourdan Arrigon CORPORATE RECYCLING MANAGER.CORPORATE INVESTIGATOR Work Phone: [facility] 12-07-2022 12:53-0400 Body height 175.3 cm Edgar Do MD Work Phone: [facility] 12-07-2022 12:53-0400 Body weight 120.2 kg Edgar Do MD Work Phone: [facility] 12-07-2022 12:53-0400 Diastolic blood pressure 78 mm[Hg] Edgar Do MD Work Phone: [facility] 12-07-2022 12:53-0400 Heart rate 88 /min Edgar Do MD Work Phone: [facility] 12-07-2022 12:53-0400 Systolic blood pressure 160 mm[Hg] Edgar Do MD Work Phone: [facility] 05-23-2022 08:19-0500 Diastolic blood pressure 89 mm[Hg] Bob Walton [facility] 05-23-2022 08:19-0500 Heart rate 76 /min Bob Walton [facility] 05-23-2022 08:19-0500 Systolic blood pressure 142 mm[Hg] Bob Walton [facility] 03-23-2022 13:22-0500 Body height 175.3 cm Edgar Do MD Work Phone: [facility] 03-23-2022 13:22-0500 Body weight 123.38 kg Edgar Do MD Work Phone: [facility] 03-23-2022 13:22-0500 Diastolic blood pressure 84 mm[Hg] Edgar Do MD Work Phone: [facility] 03-23-2022 13:22-0500 Heart rate 73 /min Edgar Do MD Work Phone: [facility] 03-23-2022 13:22-0500 Systolic blood pressure 148 mm[Hg] Edgar Do MD Work Phone: [facility] 02-24-2022 12:31-0400 Diastolic blood pressure 70 mm[Hg] Jody Tavaresmetz [facility] 02-24-2022 12:31-0400 Mean blood pressure 91 mm[Hg] Jody Hernandez [facility] 02-24-2022 12:31-0400 Systolic blood pressure 134 mm[Hg] Jody Hernandez [facility] 02-24-2022 12:28-0400 Blood Pressure Location Jody Hernandez [facility] 02-24-2022 12:28-0400 Body temperature 97.52 [degF] Jody Hernandez [facility] 02-24-2022 12:28-0400 Diastolic blood pressure 77 mm[Hg] Jody Hernandez [facility] 02-24-2022 12:28-0400 Heart rate 76 /min Jody Tavaresmetz [facility] 02-24-2022 12:28-0400 Systolic blood pressure 145 mm[Hg] Jody Shresthaz [facility] 12-08-2021 14:42-0400 Diastolic blood pressure 80 mm[Hg] Park SALAM [facility] 12-08-2021 14:42-0400 Heart rate 73 /min Park SALAM [facility] 12-08-2021 14:42-0400 Respiratory rate 17 /min Park SALAM [facility] 12-08-2021 14:42-0400 SaO2% (BldA) [Mass fraction] 96 % Park SALAM [facility] 12-08-2021 14:42-0400 Systolic blood pressure 141 mm[Hg] Park SALAM [facility] 12-08-2021 14:25-0400 Diastolic blood pressure 85 mm[Hg] Park SALAM [facility] 12-08-2021 14:25-0400 Heart rate 75 /min Park SALAM [facility] 12-08-2021 14:25-0400 Respiratory rate 16 /min Park SALAM [facility] 12-08-2021 14:25-0400 SaO2% (BldA) [Mass fraction] 96 % Park SALAM [facility] 12-08-2021 14:25-0400 Systolic blood pressure 130 mm[Hg] Park SALAM [facility] 12-08-2021 14:20-0400 Diastolic blood pressure 82 mm[Hg] Park SALAM [facility] 12-08-2021 14:20-0400 Heart rate 77 /min Park SALAM [facility] 12-08-2021 14:20-0400 Respiratory rate 14 /min Park SALAM [facility] 12-08-2021 14:20-0400 SaO2% (BldA) [Mass fraction] 94 % Park SALAM [facility] 12-08-2021 14:20-0400 Systolic blood pressure 128 mm[Hg] Park SALAM [facility] 12-08-2021 14:12-0400 Body temperature 97.7 [degF] Park SALAM [facility] 12-08-2021 13:57-0400 Respiratory rate 18 /min Park SALAM [facility] 12-08-2021 13:14-0400 Blood Pressure Location Park SALAM [facility] 12-08-2021 13:14-0400 Body temperature 97.88 [degF] Park SALAM [facility] 12-08-2021 13:14-0400 Respiratory rate 20 /min Park SALAM [facility] 11-01-2021 15:45-0400 Blood Pressure Location Jodygary TavaresHernandez [facility] 11-01-2021 15:45-0400 Body temperature 96.8 [degF] Jody Hernandez [facility] 11-01-2021 15:45-0400 Diastolic blood pressure 72 mm[Hg] Jody Hernandez [facility] 11-01-2021 15:45-0400 Heart rate 68 /min Jody Ng [facility] 11-01-2021 15:45-0400 SaO2% (BldA) [Mass fraction] 95 % Jody Ng [facility] 11-01-2021 15:45-0400 Systolic blood pressure 128 mm[Hg] Jody Ng [facility] 09-17-2021 13:16-0400 Body height 175.3 cm Jass Vogt MD Work Phone: [facility] 09-17-2021 13:16-0400 Body weight 124.42 kg Jass Vogt MD Work Phone: [facility] 09-17-2021 13:16-0400 Diastolic blood pressure 77 mm[Hg] Jass Vogt MD Work Phone: [facility] 09-17-2021 13:16-0400 Heart rate 71 /min Jass Vogt MD Work Phone: [facility] 09-17-2021 13:16-0400 Systolic blood pressure 128 mm[Hg] Jass Vogt MD Work Phone: [facility] 09-05-2021 12:41-0400 Blood Pressure Location Yana BROWNING [facility] 09-05-2021 12:41-0400 Body temperature 98.06 [degF] Yana BROWNING [facility] 09-05-2021 12:41-0400 Diastolic blood pressure 82 mm[Hg] Yana BROWNING [facility] 09-05-2021 12:41-0400 Heart rate 65 /min Yana BROWNING [facility] 09-05-2021 12:41-0400 SaO2% (BldA) [Mass fraction] 98 % Yana BROWNING [facility] 09-05-2021 12:41-0400 Systolic blood pressure 134 mm[Hg] Yana BROWNING [facility] Encounters Encounter Date Encounter Type Care Provider Facility Start: 09-17-2024 End: 09-17-2024 Refill Skylar MARCOS Comment on above: Daytime hypersomnole nce (Primary Dx) Start: 06-19-2024 End: 06-19-2024 ambulatory [facility] Work Phone: Start: 06-19-2024 End: 06-19-2024 Patient encounter procedure [facility] Work Phone: Start: 03-20-2024 End: 03-20-2024 Telephone encounter Annmarie Cy Work Phone: [address] Start: 01-24-2024 End: 01-24-2024 Office outpatient visit 25 minutes Clarice Cifuentes MANAGER OF DIGITAL Work Phone: [address] Comment on above: MILLY (obstructive sle ep apnea) (Primary Dx); Daytime hypersomnolence; Snoring Start: 01-24-2024 End: 01-24-2024 ambulatory CLARICE CIFUENTES Not Available Start: 01-24-2024 End: 01-24-2024 Bamboo flowsheet Clarice Cifuentes MANAGER OF DIGITAL Work Phone: [address] Start: 01-24-2024 End: 01-24-2024 Jurgen Alcazarkaitlyn GLYNN Work Phone: [address] Start: 01-17-2024 End: 01-17-2024 Patient encounter procedure Jourdan Frias CORPORATE RECYCLING MANAGER.CORPORATE INVESTIGATOR Work Phone: Urology Comment on above: History of penile ca ncer (Primary Dx) Start: 01-17-2024 End: 01-22-2024 ambulatory JASMEET MARTINEZ Facility:[facility] Start: 10-24-2023 End: 01-22-2024 ambulatory Rodney R Rashi Facility:[facility] Start: 10-06-2023 End: 10-06-2023 ambulatory Rodney R Markham Facility:[facility] Start: 10-06-2023 End: 10-06-2023 Patient encounter procedure Rodney Cuauhtemoc GarciaMarkham III [facility] Start: 09-10-2023 End: 09-10-2023 ambulatory ANETA KUMAR Not Available Start: 07-12-2023 End: 07-12-2023 ambulatory Jourdan Canon CORPORATE RECYCLING MANAGER.CORPORATE INVESTIGATOR Work Phone: Urology Start: 07-12-2023 End: 07-12-2023 Patient encounter procedure Jourdan Frias CORPORATE RECYCLING MANAGER.CORPORATE INVESTIGATOR Work Phone: Urology Comment on above: Lichen sclerosus of penis (Primary Dx); History of penile cancer Start: 01-10-2023 Telephone encounter Edgar Do MD Work Phone: Urology Start: 12-07-2022 ambulatory Edgar pineda MD Work Phone: Urology Start: 12-07-2022 End: 12-07-2022 Patient encounter procedure Edgar Do MD Work Phone: Urology Comment on above: Penile lesion (Prima ry Dx); Lichen sclerosus of penis Start: 09-14-2022 End: 09-14-2022 Patient encounter procedure Rafaela Nova MD Work Phone: Ophthalmology Comment on above: Glaucoma suspect of both eyes (Primary Dx) Start: 08-15-2022 End: 08-15-2022 Patient encounter procedure Edgar Do MD Work Phone: Urology Comment on above: Lichen sclerosus of penis (Primary Dx) Start: 07-20-2022 End: 07-21-[address] FOSTER [facility] Facility:[facility] Start: 07-11-2022 ambulatory Edgar pineda MD Work Phone: Urology Start: 07-11-2022 End: 07-11-2022 Patient encounter procedure Edgar Do MD Work Phone: Urology Comment on above: Penile lesion (Prima ry Dx); Penile intraepithelial neoplasia; Hidden penis Start: 05-30-2022 End: 05-30-2022 Patient encounter procedure Estrella AMARO [facility] Start: 05-23-2022 End: 05-23-2022 Patient encounter procedure Bob Walton [facility] Start: 03-23-2022 ambulatory Edgar pineda MD Work Phone: Urology Start: 03-23-2022 End: 03-23-2022 Patient encounter procedure Edgar Do MD Work Phone: Urology Comment on above: Penile intraepitheli al neoplasia (Primary Dx); Penile lesion Start: 03-15-2022 ambulatory NONE LISTED REQUEST Facility:[facility] Start: 03-07-2022 End: 03-08-[address] NONE LISTED REQUEST Facility:[facility] Start: 02-24-2022 End: 02-24-2022 Patient encounter procedure Jody Ng [facility] Start: 12-08-2021 End: 12-08-2021 Patient encounter procedure Vivian SOTELO [facility] Start: 11-22-2021 End: 11-23-[address] NONE LISTED REQUEST Facility: Start: 11-01-2021 End: 11-01-2021 Patient encounter procedure Jody Ng [facility] Start: 10-08-2021 Telephone encounter Edgar Do MD Work Phone: Urology Comment on above: FMLA Paperwork Start: 09-17-2021 ambulatory Jass Vogt MD Work Phone: Urology Start: 09-17-2021 End: 09-17-2021 Patient encounter procedure Jass Vogt MD Work Phone: Urology Comment on above: Penile lesion Start: 2021 End: 2021 Patient encounter procedure Rafaela Nova MD Work Phone: Ophthalmology Comment on above: Glaucoma suspect of both eyes (Primary Dx) Start: 09-05-2021 End: 09-05-2021 Lab Drop off Yana BROWNING [facility] Start: 09-05-2021 End: 09-05-2021 Patient encounter procedure Yana BROWNING [facility] Start: 08-26-2021 Telephone encounter Jass emerson MD Work Phone: Urology Comment on above: Patient Update Start: 08-23-2021 End: 08-23-2021 Patient encounter procedure Edgar Do MD Work Phone: Urology Comment on above: Penile intraepitheli al neoplasia (Primary Dx); Penile lesion; Morbid obesity with BMI of 40.0-44.9, adult (HCC) Start: 08-23-2021 Telephone encounter Rafaela Nova MD Work Phone: Ophthalmology Comment on above: Appointment Start: 08-12-2021 Telephone encounter Edgar Do MD Work Phone: Urology Comment on above: FMLA Paperwork Start: 08-06-2021 ambulatory Jass Vogt MD Work Phone: Urology Start: 07-19-2021 Telephone encounter Edgar Do MD Work Phone: Urology Comment on above: Results Procedures Date Procedure Procedure Detail Performing Clinician Start: 01-17-2024 Urnls dip stick/tabl et rgnt auto w/o microscopy Bulk Order Provider Start: 07-12-2023 Urnls dip stick/tabl et rgnt auto w/o microscopy Bulk Order Provider Start: 12-07-2022 Urnls dip stick/tabl et rgnt auto w/o microscopy Bulk Order Provider Start: 09-14-2022 Computerized ophthal aiden imaging optic nerve Rafaela Nova MD Work Phone: Start: 08-15-2022 Urnls dip stick/tabl et rgnt auto w/o microscopy Edgar Do MD Work Phone: Start: 07-11-2022 Urnls dip stick/tabl et rgnt auto w/o microscopy Bulk Order Provider Start: 03-23-2022 Urnls dip stick/tabl et rgnt auto w/o microscopy Bulk Order Provider Start: 03-07-[address] DEANNA Parsons ISTED REQUEST Comment on above: Performed By: #### P SAD #### [facility] [address] [place] [address] Dr. Michael Macdonald Start: 12-08-2021 Colonoscopy Clarice astudillo MANAGER OF DIGITAL Work Phone: Start: 12-08-2021 Colonoscopy Vivian Alvarado Start: 09-17-2021 Urnls dip stick/tabl et rgnt auto w/o microscopy Bulk Order Provider Start: 2021 Ophthalmic us dx cor maday pachymetry uni/bi Rafaela Nova MD Work Phone: Start: 2021 End: 2021 Visual field xm uni/bi w/interp extended exam Rafaela Nova MD Work Phone: Start: 08-06-2021 Urnls dip stick/tabl et rgnt auto w/o microscopy Bulk Order Provider Start: 05-13-2021 Biopsy Yana COLVIN TREY Start: 06-05-2001 Right radical orchidectomy Vivian SOTELO Absent testicle (congenital) (disorder) Yana BROWNING Plan of Treatment Date Care Activity Detail Author Start: 03-09-2033 Urine microalbumin profile DTaP,Tdap,Td Vaccine (3 - Td or Tdap) [facility] Start: 12-09-2031 Screening for malign ant neoplasm of colon [facility] Start: 12-23-2024 Influenza vaccination Influenz a Vaccine (Season Ended) [facility] Start: 01-24-2024 End: 01-24-2024 Patient encounter procedure 01/24/2024 3:30 PM EDT Office Visit [facility] [address] [place] [address] Clarice Cifuentes NP [address] [place], [place] Arrived [facility] Comment on above: Arrived Start: 12-24-2023 Covid-19 Vaccine ( season) Covid-19 Vaccine ( season) [facility] Start: 12-24-2023 Influenza vaccination Influenza Vacc ine (#1) [facility] Start: 09-15-2023 Glaucoma screening Dilated Retinal E xam [facility] Start: 09-15-2023 Hepatitis C antibody , confirmatory test DILATED RETINAL EXAM [facility] Start: 04-24-2023 Depression Assessment Depression Ass essment [facility] Start: 12-23-2022 Influenza vaccination [facility] Start: 09-17-2022 BP CONTROLLED (<130/80) BP CONTROLLE D (<130/80) [facility] Start: 2022 Hepatitis C antibody , confirmatory test DILATED RETINAL EXAM [facility] Start: 07-09-2022 BP CONTROLLED (<130/80) BP CONTROLLE D (<130/80) [facility] Start: 04-24-2022 DEPRESSION ASSESSMENT DEPRESSION ASS ESSMENT [facility] Start: 09-05-2021 COVID-19 VACCINE (4 - Booster for Pfizer series) COVID-19 VACCINE (4 - Booster for Pfizer series) [facility] Start: 09-05-2021 SHINGRIX VACCINE (1 of 2) SHINGRIX VACCINE (1 of 2) [facility] Start: 04-24-2021 DEPRESSION ASSESSMENT DEPRESSION ASS ESSMENT [facility] Start: 09-05-2016 COLOGUARD (FIT-DNA) COLOGUARD (FIT-D NA) [facility] Start: 09-05-2016 Colonoscopy COLONOSCOPY [facility] Start: 09-05-2016 COLORECTAL CANCER SCREENING COLORECTAL CANCER SCREENING [facility] Start: 09-05-[address] COLONOGRAPHY [facility] Start: 09-05-2016 FECAL OCCULT BLOOD FECAL OCCULT BLOO D [facility] Start: 09-05-2016 Screening for malign ant neoplasm of colon [facility] Start: 09-05-2016 SIGMOIDOSCOPY SIGMOIDOSCOPY [facility] Start: 09-05-1990 HEPATITIS B (1 of 3 - Risk 3-dose series) HEPATITIS B (1 of 3 - Risk 3-dose series) [facility] Start: 09-05-1990 SHINGRIX VACCINE (1 of 2) SHINGRIX VACCINE (1 of 2) [facility] Start: 09-05-1990 Urine microalbumin profile [facility] Start: 09-05-1989 ANNUAL PCP TEAM PRESS OPERATOR MEAT BRIGITTE DISEASE VISIT ANNUAL PCP TEAM CHRONIC DISEASE VISIT [facility] Start: 09-05-1989 Anxiety Screening Anxiety Screening [facility] Start: 09-05-1989 BP CONTROLLED (<130/80) BP CONTROLLE D (<130/80) [facility] Start: 09-05-1989 Depression Screening Depression Scre ening [facility] Start: 09-05-1989 Hepatitis B surface antibody level LDL CHOLESTEROL [facility] Start: 09-05-1989 HEPATITIS C SCREENING HEPATITIS C SC [facility] Start: 09-05-1989 Hepatitis C screening Hepatitis C Sc [facility] Start: 09-05-1989 HIV SCREENING HIV SCREENING [facility] Start: 09-05-1989 HIV screening HIV Screening [facility] Start: 1987 ONE PNEUMOVAX PRIOR TO AGE 65 ONE PNEUMOVAX PRIOR TO AGE 66 [facility] Start: 1983 Adult depression screening assessment DEPRESSION SCREENING [facility] Start: 09-05-1981 3 comp foot exam completed DIABETIC FOOT EXAM [facility] Start: 09-05-1981 Diabetic foot examination Diabetic Foot Exam [facility] Start: 09-05-1981 Hepatitis B screening URINE AL BUMIN:CREATININE RATIO [facility] Start: 09-05-1981 Hepatitis C antibody , confirmatory test DILATED RETINAL EXAM [facility] Start: 09-05-1977 PNEUMOCOCCAL (1 - PCV) PNEUMOCOCCAL (1 - PCV) [facility] Start: 09-05-1977 Pneumococcal vaccination Pneumococcal Vaccine (1 - PCV) [facility] Start: 09-05-1976 Hemoglobin A1c measurement HbA1C [facility] Start: 09-05-1976 Hemoglobin A1c/Hemoglobin.total in Blood HBA1C [facility] Start: 1971 HEPATITIS B (1 of 3 - 3-dose series) HEPATITIS B (1 of 3 - 3-dose series) [facility] Start: 1971 Hepatitis B Vaccine (1 of 3 - 3-dose series) Hepatitis B Vaccine (1 of 3 - 3-dose series) [facility] Start: 1970 Screening for malign ant neoplasm of colon [facility] SURGICAL PATHOLOGY SURGICAL PATH OLOGY Lab Routine Penile intraepithelial neoplasia 08/23/2021 4:30 PM EDT [facility] Work Phone: [facility] Immunizations Immunization Date Immunization Notes Care Provider Terra solis 03-09-2023 influenza virus vaccine, unspecified formulation Jourdan Frias APRN.CNP Work Phone: [facility] 03-08-2022 SARS-CoV-2 (COVID-19 ) [id number] Estrella AMARO [facility] 11-26-2021 influenza virus vaccine, unspecified formulation Jody Ng [facility] 11-26-2021 pneumococcal 20-valentine nt conjugate vaccine Jodyagry Ng [facility] 11-26-2021 zoster vaccine recombinant Jodygary TavaresHernandez [facility] 09-17-2021 SARS-CoV-2 mRNA (uswpvnnrwff-qvgc-tqgm ose) vaccine Jody Hernandez [facility] 09-17-2021 tetanus toxoid, reduced diphtheria toxoid, and acellular pertussis vaccine, adsorbed Jodygary TavaresHernandez [facility] 09-17-2021 zoster vaccine recombinant Jody Hernandez [facility] 02-18-2021 influenza virus vaccine, unspecified formulation Jody Hernandez [facility] 02-05-2021 SARS-CoV-2 (COVID-19 ) mRNA BNT-162b2 vax Jody Hernandez [facility] 08-07-2020 COVID-19, mRNA, LNP- S, PF, 30 mcg/0.3 mL dose; Translations: [Pfizer-BioNTech COVID-19 Vaccine] Yana SALINASTopmission [facility] Comment on above: Reason for Medicatio n: Prophylaxis 07-10-2020 COVID-19, mRNA, LNP- S, PF, 30 mcg/0.3 mL dose; Translations: [Pfizer-BioNTech COVID-19 Vaccine] Yana [employer] [facility] Comment on above: Reason for Medicatio n: Prophylaxis 02-17-2017 influenza virus vaccine, unspecified formulation Jody Ng [facility] 05-28-2003 hepatitis A and hepatitis B vaccine Jody Ng [facility] 12-11-2002 hepatitis A and hepatitis B vaccine Jody Ng [facility] 12-10-2002 varicella virus vaccine Jody Ng [facility] 11-08-2002 hepatitis A and hepatitis B vaccine Jody Ng [facility] 11-08-2002 measles, mumps and rubella virus vaccine Jody Ng [facility] 11-08-2002 varicella virus vaccine Jody Ng [facility] Payers Date Payer Category Payer Private Health Insurance AETNA AETNA ASA GENERIC [id number] 2021-Present [phone] [address] [place] [address] PPO [id number] 2021 Private Health Insurance [id number] 2018 Unknown MMO MMO [employer]PER[employer] PLUS [id number] 2018-Present [phone] [address] [place] [address] PPO [id number] 2014 Unknown [id number] 1971 Unknown [id number] 593 1971 Unknown [id number] 593 1971 Unknown [id number] 593 1971 Unknown [id number] 593 1971 Unknown [id number] 1259 1971 Unknown [id number] 1259 1971 Unknown [id number] 727 1971 Unknown [id number] 727 1959 Self-pay 1959 Unknown [id number] 1959 Unknown [id number] 1959 Unknown [id number] Private Health Insurance [facility] [id number] Unknown [facility] [id number] Social History Date Type Detail Facility Start: 05-31-2021 End: 07-11-2022 Tobacco smoking status WYIS Never smoked tobacco [facility] Start: 05-31-2021 End: 07-11-2022 Tobacco use and exposure Smokeless tobacco non-user [facility] Start: 07-09-2021 End: 01-17-2024 Alcohol intake Ex-drinker (finding) [facility] Start: 1970 Sex Assigned At Male [facility] Start: 07-03-2021 End: 03-23-2022 Exposure to SARS-CoV-2 (event) Not sure [facility] Tobacco smoking status Never [facility] Start: 09-14-2022 End: 12-07-2022 Sex Assigned At Male [facility] Start: 09-14-2022 End: 12-07-2022 History of Social function [facility] Start: 06-07-2021 Gender identity Identifies as male gender (finding) [facility] Start: 09-10-2023 Tobacco smoking status WYIS Tobacco smoking consumption unknown [facility] Start: 1970 Sex assigned at Not on file [facility] Start: 06-19-2024 Sex Male (finding) [facility] Medical Equipment Procedure Code Equipment Code Equipment Origin al Text Equipment Identifier Dates Start: 09-01-2023 Blood Sugar Diagnostic (True Metrix Glucose Test Strip) strip Start: 06-19-2024 Lancets (Trueplu s Lancets) 28 gauge misc Start: 06-19-2024 Syringe With Nee dle (Bd Luer-Juan Jose Syringe) 3 mL 21 gauge x 1 1/2 syringe Start: 06-19-2024 Functional Status Date Assessment Result Facility 05-30-2022 Functional Status N/A [facility] 05-23-2022 Functional Status N/A [facility] 02-24-2022 Functional Status N/A [facility] 12-08-2021 Functional Status N/A [facility] 11-01-2021 Functional Status N/A [facility] Clinical Notes 07-19-2021 to 09-17-2024 Telephone Encounter - Skylar Salomon MA - 09/17/2024 3:16 PM EDTTelephone Encounter - Skylar Salomon MA - 09/17/2024 3:16 PM EDTTelephone Encounter - Annmarie Benoit DO - 03/20/2024 8:52 AM EST Note Date & Type Note Facility 09-17-2024 Telephone encounter Note Nazia from [facility] states the patient called there for a refill on Ritalin 5mg. Oarrs reviewed due now [facility] 09-17-2024 Miscellaneous Notes Nazia from [facility] states the patient called there for a refill on Ritalin 5mg. Oarrs reviewed due now documented in this encounter [facility] 03-20-2024 Telephone encounter Note Patient needs a rfill on his Provigil [facility] 03-20-2024 Miscellaneous Notes Patient needs a rfill on his Provigil documented in this encounter [facility] 01-17-2024 Note HNO ID: [id number] Author: JOURDAN FRIAS APRN.CORPORATE INVESTIGATOR Service: ? 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 Dr. oD did excisional biopsy of glans penis, biopsy of ventral mid to proximal penile skin lesion, and takedown of distal penile skin adhesions on 07/13/2021. Pathology was benign on the glans and distal penis but PeIN on mid ventral to proximal shaft biopsy. Fidel Lara underwent re-excision in [facility] on 08/23/2021 (1.6cm x 1cm specimen) which returned squamous hyperplasia with hyperkeratosis. Fidel Lara had excision of 3 mm ventral penile lesion in [facility] on 01/02/2023, with pathology showing benign penile tissue with mild hyperkeratosis and minimal chronic inflammation. Fidel Lara was last seen on 07/12/2023. Doing well with intermittent clobetasol cream. Had traumatic lesion to glans but no lesions warranting biopsy. Fidel Lara presents today for 6 month follow up. Feels like he is doing well. Stopped using clobetasol cream about 3 months ago because I wasn't having the problems. No bothersome LUTS. Getting Viagra and testosterone from an outside provider and feels like they are working well. Fasting blood sugar was 145 this AM. Last A1c was a couple of months ago and was good. PAST MEDICAL HISTORY Diagnosis Date Glaucoma suspect High cholesterol Hypertension Type 2 diabetes mellitus (HCC) PAST SURGICAL HISTORY Procedure Laterality Date PAST SURGICAL HISTORY OF lesions removed from penis PAST SURGICAL HISTORY OF testical removed due to cancer Social History Tobacco Use Smoking status: Never Smokeless tobacco: Never Vaping Use Vaping status: Never Used Substance Use Topics Alcohol use: Not Currently Drug use: Never Current Outpatient Medications Medication Sig Dispense Refill emtricitabine-tenofovir disoproxil fumerate (TRUVADA) 200-300 mg per tablet semaglutide (OZEMPIC) 0.25 mg or 0.5 mg(2 mg/1.5 mL) pen Inject 1 mg subcutaneously one time a week. modafinil (PROVIGIL) 200 mg tablet Take 1 tablet by mouth once daily. clobetasol (TEMOVATE) 0.05 % cream Apply to affected area two times a day. Use for a week at a time as needed 45 g 3 testosterone cypionate (DEPO-TESTOSTERONE) 200 mg/mL injection INJECT 1 ML IN THE MUSCLE TWICE PER WEEK fexofenadine (VERONICA) 180 mg tablet Take 180 mg by mouth. empagliflozin (JARDIANCE) 10 mg tablet Take 10 mg by mouth daily with breakfast. escitalopram oxalate (LEXAPRO) 20 mg tablet Take 20 mg by mouth once daily. fenofibrate nanocrystallized (TRICOR) 145 mg tablet Take 145 mg by mouth once daily. hydroCHLOROthiazide (HYDRODIURIL, ESIDRIX) 25 mg tablet Take 25 mg by mouth once daily. losartan (COZAAR) 50 mg tablet Take 50 mg by mouth once daily. lovastatin 40 mg tablet Take 40 mg by mouth daily at bedtime. montelukast (SINGULAIR) 10 mg tablet Take 10 mg by mouth daily at bedtime. naproxen (NAPROSYN) 500 mg tablet Take 500 mg by mouth twice daily with meals. sildenafil (VIAGRA) 100 mg tablet Take 100 mg by mouth as needed. SITagliptin-metFORMIN (JANUMET) 50-1,000 mg per tablet Take 1 tablet by mouth twice daily with meals. syringe w-needle,disposab,3 mL (MONOJECT 3CC SYR 27XZ5-6/2 MISC) No current facility-administered medications for this visit. ROS: Constitutional: positive for weight loss Gastrointestinal: negative PHYSICAL EXAM: Ht 175.3 cm (5' 9 ) Wt 110.8 kg (244 lb 4.3 oz) BMI 36.07 kg/m? GENERAL: Wnl nutrition, no deformities, healthy appearing. ABDOMEN: Soft, nontender, nondistended, no masses. GENITOURINARY: MALE EXAM: No scrotal lesions, cysts, rashes. Epididymes AND testes normal size, position, without mass. Urethra AND meatus normal size AND position w/o lesion or discharge. Uncircumcised penis w/o plaques, lesions, masses, or deformities. Foreskin retracts easily. The sensitive examination was discussed with the Patient or Patient's Authorized Welfare Centre Manager. As applicable, any other physician, advance practice provider, medical student, or other health professional student that will be observing or involved in the sensitive examination for educational or training purposes was discussed with the Patient or Authorized Welfare Centre Manager. The Patient or Authorized Welfare Centre Manager has agreed to proceed with the sensitive examination. (Sensitive examination includes inspection and/or palpation of the breasts, pelvis, prostate and anorectal regions) A/P: (Z85.49) History of penile cancer (primary encounter diagnosis) 53 year old male presents for 6 month follow up for LS/history of penile cancer. Has stopped clobetasol cream, and skin looks gre (more content not included)... 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 Dr. Do did excisional biopsy of glans penis, biopsy of ventral mid to proximal penile skin lesion, and takedown of distal penile skin adhesions on 07/13/2021. Pathology was benign on the glans and distal penis but PeIN on mid ventral to proximal shaft biopsy. Fidel Lara underwent re-excision in [facility] on 08/23/2021 (1.6cm x 1cm specimen) which returned squamous hyperplasia with hyperkeratosis. Fidel Lara had excision of 3 mm ventral penile lesion in [facility] on 01/02/2023, with pathology showing benign penile tissue with mild hyperkeratosis and minimal chronic inflammation. Fidel Lara was last seen on 07/12/2023. Doing well with intermittent clobetasol cream. Had traumatic lesion to glans but no lesions warranting biopsy. Fidel Lara presents today for 6 month follow up. Feels like he is doing well. Stopped using clobetasol cream about 3 months ago because I wasn't having the problems. No bothersome LUTS. Getting Viagra and testosterone from an outside provider and feels like they are working well. Fasting blood sugar was 145 this AM. Last A1c was a couple of months ago and was good. PAST MEDICAL HISTORY Diagnosis Date Glaucoma suspect High cholesterol Hypertension Type 2 diabetes mellitus (HCC) PAST SURGICAL HISTORY Procedure Laterality Date PAST SURGICAL HISTORY OF lesions removed from penis PAST SURGICAL HISTORY OF testical removed due to cancer Social History Tobacco Use Smoking status: Never Smokeless tobacco: Never Vaping Use Vaping status: Never Used Substance Use Topics Alcohol use: Not Currently Drug use: Never Current Outpatient Medications Medication Sig Dispense Refill emtricitabine-tenofovir disoproxil fumerate (TRUVADA) 200-300 mg per tablet semaglutide (OZEMPIC) 0.25 mg or 0.5 mg(2 mg/1.5 mL) pen Inject 1 mg subcutaneously one time a week. modafinil (PROVIGIL) 200 mg tablet Take 1 tablet by mouth once daily. clobetasol (TEMOVATE) 0.05 % cream Apply to affected area two times a day. Use for a week at a time as needed 45 g 3 testosterone cypionate (DEPO-TESTOSTERONE) 200 mg/mL injection INJECT 1 ML IN THE MUSCLE TWICE PER WEEK fexofenadine (VERONICA) 180 mg tablet Take 180 mg by mouth. empagliflozin (JARDIANCE) 10 mg tablet Take 10 mg by mouth daily with breakfast. escitalopram oxalate (LEXAPRO) 20 mg tablet Take 20 mg by mouth once daily. fenofibrate nanocrystallized (TRICOR) 145 mg tablet Take 145 mg by mouth once daily. hydroCHLOROthiazide (HYDRODIURIL, ESIDRIX) 25 mg tablet Take 25 mg by mouth once daily. losartan (COZAAR) 50 mg tablet Take 50 mg by mouth once daily. lovastatin 40 mg tablet Take 40 mg by mouth daily at bedtime. montelukast (SINGULAIR) 10 mg tablet Take 10 mg by mouth daily at bedtime. naproxen (NAPROSYN) 500 mg tablet Take 500 mg by mouth twice daily with meals. sildenafil (VIAGRA) 100 mg tablet Take 100 mg by mouth as needed. SITagliptin-metFORMIN (JANUMET) 50-1,000 mg per tablet Take 1 tablet by mouth twice daily with meals. syringe w-needle,disposab,3 mL (MONOJECT 3CC SYR 35QJ1-4/2 MISC) No current facility-administered medications for this visit. ROS: Constitutional: positive for weight loss Gastrointestinal: negative PHYSICAL EXAM: Ht 175.3 cm (5' 9 ) Wt 110.8 kg (244 lb 4.3 oz) BMI 36.07 kg/m GENERAL: Wnl nutrition, no deformities, healthy appearing. ABDOMEN: Soft, nontender, nondistended, no masses. GENITOURINARY: MALE EXAM: No scrotal lesions, cysts, rashes. Epididymes & testes normal size, position, without mass. Urethra & meatus normal size & position w/o lesion or discharge. Uncircumcised penis w/o plaques, lesions, masses, or deformities. Foreskin retracts easily. The sensitive examination was discussed with the Patient or Patient's Authorized Welfare Centre Manager. As applicable, any other physician, advance practice provider, medical student, or other health professional student that will be observing or involved in the sensitive examination for educational or training purposes was discussed with the Patient or Authorized Welfare Centre Manager. The Patient or Authorized Welfare Centre Manager has agreed to proceed with the sensitive examination. (Sensitive examination includes inspection and/or palpation of the breasts, pelvis, prostate and anorectal regions) A/P: (Z85.49) History of penile cancer (primary encounter diagnosis) 53 year old male presents for 6 month follow up for LS/history of penile cancer. Has stopped clobetasol cream, and skin looks great today. Encouraged him to restart clobetasol cream if itching and visible skin changes recur. Encouraged him to call office if he notices lesions that do not improve with clobetasol cream. Otherwise, he can RTC in 1 year. Jourdan Frias APRN.CORPORATE INVESTIGATOR documented in this encounter [facility] 01-17-2024 Note Patient Outreach (UR OLMN) FIDEL LARA ([id number]) 1970 M Date Time Provider Department 01/17/24 JOURDAN FRIAS UROAMANDO During your visit today, we recorded the following information about you: Allergies As of Date: 01/17/2024 Noted Allergy Reaction ASPRIN (ASPIRIN) 05/31/2021 7 - Swelling IBUPROFEN 05/31/2021 7 - Swelling Date Reviewed: 01/17/2024 Reviewed by: Tonya Mcarthur OCCA - Fully Assessed Visit Diagnosis:Screening for genitourinary condition [Z13.89] Order(s):URINALYSIS, REFLEX MICROSCOPIC [BQG1558] Order #: [id number]. #:[id number] Prescriptions as of 01/22/2024 - emtricitabine-tenofovir disoproxil fumerate (TRUVADA) 200-300 mg per tablet - semaglutide (OZEMPIC) 0.25 mg or 0.5 mg(2 mg/1.5 mL) pen Inject 1 mg subcutaneously one time a week. - modafinil (PROVIGIL) 200 mg tablet Take 1 tablet by mouth once daily. - clobetasol (TEMOVATE) 0.05 % cream Apply to affected area two times a day. Use for a week at a time as needed - testosterone cypionate (DEPO-TESTOSTERONE) 200 mg/mL injection INJECT 1 ML IN THE MUSCLE TWICE PER WEEK - fexofenadine (VERONICA) 180 mg tablet Take 180 mg by mouth. - empagliflozin (JARDIANCE) 10 mg tablet Take 10 mg by mouth daily with breakfast. - escitalopram oxalate (LEXAPRO) 20 mg tablet Take 20 mg by mouth once daily. - fenofibrate nanocrystallized (TRICOR) 145 mg tablet Take 145 mg by mouth once daily. - hydroCHLOROthiazide (HYDRODIURIL, ESIDRIX) 25 mg tablet Take 25 mg by mouth once daily. - losartan (COZAAR) 50 mg tablet Take 50 mg by mouth once daily. - lovastatin 40 mg tablet Take 40 mg by mouth daily at bedtime. - montelukast (SINGULAIR) 10 mg tablet Take 10 mg by mouth daily at bedtime. - naproxen (NAPROSYN) 500 mg tablet Take 500 mg by mouth twice daily with meals. - sildenafil (VIAGRA) 100 mg tablet Take 100 mg by mouth as needed. - SITagliptin-metFORMIN (JANUMET) 50-1,000 mg per tablet Take 1 tablet by mouth twice daily with meals. 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 07-12-2023 Note HNO ID: [id number] Author: JOURDAN FRIAS APRN.PRISCILLA Service: ? 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 Dr. Do did excisional biopsy of glans penis, biopsy of ventral mid to proximal penile skin lesion, and takedown of distal penile skin adhesions on 07/13/2021. Pathology was benign on the glans and distal penis but PeIN on mid ventral to proximal shaft biopsy. Fidel Lara underwent re-excision in [facility] on 08/23/2021 (1.6cm x 1cm specimen) which returned squamous hyperplasia with hyperkeratosis. Fidel Lara had excision of 3 mm ventral penile lesion in [facility] on 01/02/2023, with pathology showing benign penile tissue with mild hyperkeratosis and minimal chronic inflammation Fidel Lara presents today for 6 month follow up. Reports spot on the tip but attributes this to handjob without enough lubrication on 07/07/2023. No other lesions. Using clobetasol every 1-3 days. Each package lasts a little more than a month. Using Viagra for ED. Prescribed by PCP. Denies bothersome LUTS. Blood sugar has been a little high. Admits dietary indiscretion. Increased Ozempic to 1 mg weekly. Recently started modafinil for narcolepsy. PAST MEDICAL HISTORY Diagnosis Date Glaucoma suspect High cholesterol Hypertension Type 2 diabetes mellitus (HCC) PAST SURGICAL HISTORY Procedure Laterality Date PAST SURGICAL HISTORY OF lesions removed from penis PAST SURGICAL HISTORY OF testical removed due to cancer Social History Tobacco Use Smoking status: Never Smokeless tobacco: Never Vaping Use Vaping Use: Never used Substance Use Topics Alcohol use: Not Currently Drug use: Never Current Outpatient Medications Medication Sig Dispense Refill emtricitabine-tenofovir disoproxil fumerate (TRUVADA) 200-300 mg per tablet semaglutide (OZEMPIC) 0.25 mg or 0.5 mg(2 mg/1.5 mL) pen Inject 1 mg subcutaneously one time a week. modafinil (PROVIGIL) 200 mg tablet Take 1 tablet by mouth once daily. clobetasol (TEMOVATE) 0.05 % cream Apply to affected area two times a day. Use for a week at a time as needed 45 g 3 testosterone cypionate (DEPO-TESTOSTERONE) 200 mg/mL injection INJECT 1 ML IN THE MUSCLE TWICE PER WEEK fexofenadine (VERONICA) 180 mg tablet Take 180 mg by mouth. empagliflozin (JARDIANCE) 10 mg tablet Take 10 mg by mouth daily with breakfast. escitalopram oxalate (LEXAPRO) 20 mg tablet Take 20 mg by mouth once daily. fenofibrate nanocrystallized (TRICOR) 145 mg tablet Take 145 mg by mouth once daily. hydroCHLOROthiazide (HYDRODIURIL, ESIDRIX) 25 mg tablet Take 25 mg by mouth once daily. losartan (COZAAR) 50 mg tablet Take 50 mg by mouth once daily. lovastatin 40 mg tablet Take 40 mg by mouth daily at bedtime. montelukast (SINGULAIR) 10 mg tablet Take 10 mg by mouth daily at bedtime. naproxen (NAPROSYN) 500 mg tablet Take 500 mg by mouth twice daily with meals. sildenafil (VIAGRA) 100 mg tablet Take 100 mg by mouth as needed. SITagliptin-metFORMIN (JANUMET) 50-1,000 mg per tablet Take 1 tablet by mouth twice daily with meals. syringe w-needle,disposab,3 mL (MONOJECT 3CC SYR 08NQ3-1/2 [facility]) No current facility-administered medications for this visit. PHYSICAL EXAM: There were no vitals taken for this visit. GENERAL: Wnl nutrition, no deformities, healthy appearing. ABDOMEN: Not examined. GENITOURINARY: MALE EXAM: No scrotal lesions, cysts, rashes. Urethra AND meatus normal size AND position w/o lesion or discharge. Penis is hidden with 2 scabbed lesions at 9-10 o'clock position on glans. There are a few 1 mm papules at ventral base of penis. DATA/OR LABS TO BE REVIEWED: (Simple=1 data point; Complex= 2 or more) No results found for: PSA Creatinine (mg/dL) Date Value 07/09/2021 0.99 Testosterone (ng/dL) Date Value 08/22/2001 229 A/P: (N48.0) Lichen sclerosus of penis (primary encounter diagnosis) Plan: clobetasol (TEMOVATE) 0.05 % cream (Z85.49) History of penile cancer 52 year old male with history of penile intraepithelial neoplasia in 2021 presents for 6 month follow up. Doing well with intermittent clobetasol cream. Has traumatic lesion to glans but no lesions warranting biopsy. Refilled clobetasol cream. RTC in 6 months or sooner PRN. Reminded him that he can reach out via MyChart (including pictures) if concerning lesions develop before next visit. 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 Dr. Do did excisional biopsy of glans penis, biopsy of ventral mid to proximal penile skin lesion, and takedown of distal penile skin adhesions on 07/13/2021. Pathology was benign on the glans and distal penis but PeIN on mid ventral to proximal shaft biopsy. Fidel Lara underwent re-excision in [facility] on 08/23/2021 (1.6cm x 1cm specimen) which returned squamous hyperplasia with hyperkeratosis. Fidel Lara had excision of 3 mm ventral penile lesion in [facility] on 01/02/2023, with pathology showing benign penile tissue with mild hyperkeratosis and minimal chronic inflammation Fidel Lara presents today for 6 month follow up. Reports spot on the tip but attributes this to handjob without enough lubrication on 07/07/2023. No other lesions. Using clobetasol every 1-3 days. Each package lasts a little more than a month. Using Viagra for ED. Prescribed by PCP. Denies bothersome LUTS. Blood sugar has been a little high. Admits dietary indiscretion. Increased Ozempic to 1 mg weekly. Recently started modafinil for narcolepsy. PAST MEDICAL HISTORY Diagnosis Date Glaucoma suspect High cholesterol Hypertension Type 2 diabetes mellitus (HCC) PAST SURGICAL HISTORY Procedure Laterality Date PAST SURGICAL HISTORY OF lesions removed from penis PAST SURGICAL HISTORY OF testical removed due to cancer Social History Tobacco Use Smoking status: Never Smokeless tobacco: Never Vaping Use Vaping Use: Never used Substance Use Topics Alcohol use: Not Currently Drug use: Never Current Outpatient Medications Medication Sig Dispense Refill emtricitabine-tenofovir disoproxil fumerate (TRUVADA) 200-300 mg per tablet semaglutide (OZEMPIC) 0.25 mg or 0.5 mg(2 mg/1.5 mL) pen Inject 1 mg subcutaneously one time a week. modafinil (PROVIGIL) 200 mg tablet Take 1 tablet by mouth once daily. clobetasol (TEMOVATE) 0.05 % cream Apply to affected area two times a day. Use for a week at a time as needed 45 g 3 testosterone cypionate (DEPO-TESTOSTERONE) 200 mg/mL injection INJECT 1 ML IN THE MUSCLE TWICE PER WEEK fexofenadine (VERONICA) 180 mg tablet Take 180 mg by mouth. empagliflozin (JARDIANCE) 10 mg tablet Take 10 mg by mouth daily with breakfast. escitalopram oxalate (LEXAPRO) 20 mg tablet Take 20 mg by mouth once daily. fenofibrate nanocrystallized (TRICOR) 145 mg tablet Take 145 mg by mouth once daily. hydroCHLOROthiazide (HYDRODIURIL, ESIDRIX) 25 mg tablet Take 25 mg by mouth once daily. losartan (COZAAR) 50 mg tablet Take 50 mg by mouth once daily. lovastatin 40 mg tablet Take 40 mg by mouth daily at bedtime. montelukast (SINGULAIR) 10 mg tablet Take 10 mg by mouth daily at bedtime. naproxen (NAPROSYN) 500 mg tablet Take 500 mg by mouth twice daily with meals. sildenafil (VIAGRA) 100 mg tablet Take 100 mg by mouth as needed. SITagliptin-metFORMIN (JANUMET) 50-1,000 mg per tablet Take 1 tablet by mouth twice daily with meals. syringe w-needle,disposab,3 mL (MONOJECT 3CC SYR 05KG7-1/2 [facility]) No current facility-administered medications for this visit. PHYSICAL EXAM: There were no vitals taken for this visit. GENERAL: Wnl nutrition, no deformities, healthy appearing. ABDOMEN: Not examined. GENITOURINARY: MALE EXAM: No scrotal lesions, cysts, rashes. Urethra & meatus normal size & position w/o lesion or discharge. Penis is hidden with 2 scabbed lesions at 9-10 o'clock position on glans. There are a few 1 mm papules at ventral base of penis. DATA/OR LABS TO BE REVIEWED: (Simple=1 data point; Complex= 2 or more) No results found for: PSA Creatinine (mg/dL) Date Value 07/09/2021 0.99 Testosterone (ng/dL) Date Value 08/22/2001 229 A/P: (N48.0) Lichen sclerosus of penis (primary encounter diagnosis) Plan: clobetasol (TEMOVATE) 0.05 % cream (Z85.49) History of penile cancer 52 year old male with history of penile intraepithelial neoplasia in 2021 presents for 6 month follow up. Doing well with intermittent clobetasol cream. Has traumatic lesion to glans but no lesions warranting biopsy. Refilled clobetasol cream. RTC in 6 months or sooner PRN. Reminded him that he can reach out via SMATOOShart (including pictures) if concerning lesions develop before next visit. Jourdan Frias APRN.CORPORATE INVESTIGATOR documented in this encounter [facility] 07-12-2023 Note Patient Outreach (UR OLMN) FIDEL LARA ([id number]) 1970 M Date Time Provider Department 07/12/23 JOURDAN FRIAS UROAMANDO During your visit today, we recorded the following information about you: Allergies As of Date: 07/12/2023 Noted Allergy Reaction ASPRIN (ASPIRIN) 05/31/2021 7 - Swelling IBUPROFEN 05/31/2021 7 - Swelling Date Reviewed: 07/12/2023 Reviewed by: Ginger Mathew MA - Fully Assessed Visit Diagnosis:Screening for genitourinary condition [Z13.89] Order(s):URINALYSIS, REFLEX MICROSCOPIC [[id number]] Order #: [id number]. #:[id number] Prescriptions as of 07/17/2023 - emtricitabine-tenofovir disoproxil fumerate (TRUVADA) 200-300 mg per tablet - semaglutide (OZEMPIC) 0.25 mg or 0.5 mg(2 mg/1.5 mL) pen Inject 1 mg subcutaneously one time a week. - modafinil (PROVIGIL) 200 mg tablet Take 1 tablet by mouth once daily. - clobetasol (TEMOVATE) 0.05 % cream Apply to affected area two times a day. Use for a week at a time as needed - testosterone cypionate (DEPO-TESTOSTERONE) 200 mg/mL injection INJECT 1 ML IN THE MUSCLE TWICE PER WEEK - fexofenadine (VERONICA) 180 mg tablet Take 180 mg by mouth. - empagliflozin (JARDIANCE) 10 mg tablet Take 10 mg by mouth daily with breakfast. - escitalopram oxalate (LEXAPRO) 20 mg tablet Take 20 mg by mouth once daily. - fenofibrate nanocrystallized (TRICOR) 145 mg tablet Take 145 mg by mouth once daily. - hydroCHLOROthiazide (HYDRODIURIL, ESIDRIX) 25 mg tablet Take 25 mg by mouth once daily. - losartan (COZAAR) 50 mg tablet Take 50 mg by mouth once daily. - lovastatin 40 mg tablet Take 40 mg by mouth daily at bedtime. - montelukast (SINGULAIR) 10 mg tablet Take 10 mg by mouth daily at bedtime. - naproxen (NAPROSYN) 500 mg tablet Take 500 mg by mouth twice daily with meals. - sildenafil (VIAGRA) 100 mg tablet Take 100 mg by mouth as needed. - SITagliptin-metFORMIN (JANUMET) 50-1,000 mg per tablet Take 1 tablet by mouth twice daily with meals. 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 01-10-2023 Miscellaneous Notes I phoned patient with pathology report, the lesion we removed was benign. He was appreciative of the call. He prefers to follow-up here, and therefore will arrange appointment in 6 months with Jourdan Frias. He will call if any problems in the interim. 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 He underwent re-excision in [facility] on 08/23/21 (1.6cm x 1cm specimen) which returned squamous hyperplasia with hyperkeratosis. Patient was last seen on 08/15/22 at which time he reported a small lump of the bottom of shaft which plan was to excise lesion if present on follow up however lesion has resolved. Recommendation was made to apply clobetasol cream twice daily for a week or so when he is symptomatic. Today, patient presents with a new warty lesion (~3mm) on ventral surface just proximal to the glans on the left side. Patient report he is sexually active no STIs or UTIs. No prior history of genital warts. Patient with a history of lichen sclerosis well controlled on clobetasol cream PRN. Denies any other symptoms. PAST MEDICAL HISTORY Diagnosis Date Glaucoma suspect High cholesterol Hypertension Type 2 diabetes mellitus (HCC) PAST SURGICAL HISTORY Procedure Laterality Date PAST SURGICAL HISTORY OF lesions removed from penis PAST SURGICAL HISTORY OF testical removed due to cancer Social History Tobacco Use Smoking status: Never Smokeless tobacco: Never Vaping Use Vaping Use: Never used Substance Use Topics Alcohol use: Not Currently Drug use: Never Current Outpatient Medications on File Prior to Visit Medication Sig clobetasol (TEMOVATE) 0.05 % cream Apply to affected area twice daily. Use for a week at a time as needed testosterone cypionate (DEPO-TESTOSTERONE) 200 mg/mL injection INJECT 1 ML IN THE MUSCLE TWICE PER WEEK fexofenadine (VERONICA) 180 mg tablet Take 180 mg by mouth. empagliflozin (JARDIANCE) 10 mg tablet Take 10 mg by mouth daily with breakfast. escitalopram oxalate (LEXAPRO) 20 mg tablet Take 20 mg by mouth once daily. fenofibrate nanocrystallized (TRICOR) 145 mg tablet Take 145 mg by mouth once daily. hydroCHLOROthiazide (HYDRODIURIL, ESIDRIX) 25 mg tablet Take 25 mg by mouth once daily. losartan (COZAAR) 50 mg tablet Take 50 mg by mouth once daily. lovastatin 40 mg tablet Take 40 mg by mouth daily at bedtime. montelukast (SINGULAIR) 10 mg tablet Take 10 mg by mouth daily at bedtime. naproxen (NAPROSYN) 500 mg tablet Take 500 mg by mouth twice daily with meals. semaglutide (OZEMPIC) 0.25 mg or 0.5 mg(2 mg/1.5 mL) pen injector Inject 0.25 mg subcutaneously one time a week. sildenafil (VIAGRA) 100 mg tablet Take 100 mg by mouth as needed. SITagliptin-metFORMIN (JANUMET) 50-1,000 mg per tablet Take 1 tablet by mouth twice daily with meals. syringe w-needle,disposab,3 mL (MONOJECT 3CC SYR 19FF7-4/2 [facility]) No current facility-administered medications on file prior to visit. ROS: Constitutional: negative Gastrointestinal: negative PHYSICAL EXAM: BP 160/78 (BP Site: Left Arm, BP Position: Sitting, BP Cuff Size: Regular Adult) Pulse 88 Ht 175.3 cm (5' 9 ) Wt 120.2 kg (265 lb) BMI 39.13 kg/m GENERAL: Wnl nutrition, no deformities, healthy appearing ABDOMEN: Soft, nontender, nondistended, no masses. GENITOURINARY: MALE EXAM: Penis is circumcised, new warty lesion (~3mm) on ventral surface just proximal to the glans on the left side. 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 He underwent re-excision in [facility] on 08/23/21 (1.6cm x 1cm specimen) which returned squamous hyperplasia with hyperkeratosis. Patient now presenting with a single small genital wart on left ventral surface just proximal to glans penis. Genital wart on penis - Discussed with patient the treatment option of excision of lesion under local. Will plan to schedule patient in [facility] for excision. 2. Lichen Sclerosis, controlled - continue clobetasol PRN Isabel Dickey MD Attending Note I evaluated the patient and personally participated in the simon components. I agree with the resident's findings and plan as documented and have discussed the case and management of the patient's care with the resident. Patient presents for evaluation of new penile lesion. Epic notes reviewed, prior surgical history outlined above. He continues to use clobetasol intermittently for lichen sclerosis. On examination the penile skin overall looks fairly clear at this time. There is a 3 mm papillary lesion along the penile skin ventrally that is the area of concern. No other lesions seen. UA ++++glc ASSESSMENT/PLAN: 1. Penile lesion - ICD9: 607.89, ICD10: N48.9 (primary diagnosis) 2. Lichen sclerosus of penis - ICD9: 701.0, ICD10: N48.0 Discussed with patient, recommend excision of lesion in [facility] under local anesthesia, may need 2 or 3 small chromic sutures for closure. I discussed the RBAP related to the procedure, outcomes, appropriate postoperative expectations, recovery. Patient agrees to proceed. Signature: Edgar Do MD Date: 12/07/2022 Time: 2:04 PM documented in this encounter [facility] 09-21-2022 History of Present illness Narrative Tmax 16, 14 Pachy 561, 544 Past Ocular Surgical/Laser History OD: - OS: - Medication Intolerance/Inefficacy/Barriers - Current Medications HVF 09/06/21 OD: Normal. first OS: shallow superior defect vs. Non-specific. first OCT RNFL/GCA 09/06/21 OD split sup bundle. Possible sl sup thinning. first OS split sup bundle. WNL. first GCA 09/06/21 OD: diffuse thin. first OS: diffuse thin. first Glaucoma suspect -+family hx glaucoma father/ grandfather(non-surgical, no hx blindness) -GCA non-specific -monitor Return 1 year OCT RNFL/dilate Cataract OU -NVS, monitor -patient defers Rx HTNsive retinopathy OU -counseled on BP control -monitor I, Rafaela Nova MD, have confirmed and edited as necessary the relevant ophthalmic history, ROS, and the neuro exam findings as obtained by others. I have seen and examined Fidel Lara. I have discussed the case and the management of this patient's care with the Resident/Fellow, if applicable. I also have reviewed and agree with the assessment and plan as stated above and agree with all of its relevant components. documented in this encounter [facility] 08-15-2022 Nurse Note 1339 - Dr Do in to assess patient. Patient is on the exam table and prepped per protocol. After examination, Dr Do cancelled the procedure and will send the patient home with a prescription for any future flareups. Patient verbalized understanding and agrees to the plan of care. 1348 - Escorted patient to the lobby without incident. Actual procedure/procedure scheduled: Yes Performing provider/scheduled provider: Yes Patient was roomed in: Q9- 06 Property Damage Claims Adjustor offered:Patient declines Patient arrived in the room at: 1300 Patient ready for procedure: 1310 The procedure started at ( Time Only): 1340 The procedure ended at: NA Was the procedure delayed: Yes: Provider late The patient left the procedure room at: 1348 Procedure cancelled. Lucy Gunderson RN PRE PROCEDURE ASSESSMENT - Penile Lesion Excision Procedure Indication: Penile Lesion Excision Latex Allergy: No Allergies reviewed and updated. Yes Heart valve replacement: No Joint replacement: No Back Office UA otained: yes PROCEDURE PREP Patient ID with two(2)identifiers verified by: Lucy Gunderson RN Pre-Procedure Antibiotics: None taken at home nor prior to procedure Patient Prep: Betadine Scrub to perineum and placement of Sterile Drape. COMPLETED Anesthetic Given: None Lucy Gunderson RN documented in this encounter [facility] 08-15-2022 History of Present illness Narrative HPI: Epic notes reviewed. 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 He underwent re-excision in [facility] on 08/23/21 (1.6cm x 1cm specimen) which returned squamous hyperplasia with hyperkeratosis. Recently noted swelling of the foreskin, and a very small lump on the bottom of shaft. On exam there was a small raised reddened lesion, 2 mm, on the ventral aspect of the penile skin. Patient was scheduled for follow-up today, and possible excision if the lesion persisted. He currently reports that the lesion has essentially resolved. He continues to have intermittent symptoms related to the penile skin. PAST MEDICAL HISTORY Diagnosis Date Glaucoma suspect High cholesterol Hypertension Type 2 diabetes mellitus (HCC) PAST SURGICAL HISTORY Procedure Laterality Date PAST SURGICAL HISTORY OF lesions removed from penis PAST SURGICAL HISTORY OF testical removed due to cancer Social History Tobacco Use Smoking status: Never Smokeless tobacco: Never Vaping Use Vaping Use: Never used Substance Use Topics Alcohol use: Not Currently Drug use: Never Current Outpatient Medications on File Prior to Visit Medication Sig testosterone cypionate (DEPO-TESTOSTERONE) 200 mg/mL injection INJECT 1 ML IN THE MUSCLE TWICE PER WEEK fexofenadine (VERONICA) 180 mg tablet Take 180 mg by mouth. empagliflozin (JARDIANCE) 10 mg tablet Take 10 mg by mouth daily with breakfast. escitalopram oxalate (LEXAPRO) 20 mg tablet Take 20 mg by mouth once daily. fenofibrate nanocrystallized (TRICOR) 145 mg tablet Take 145 mg by mouth once daily. hydroCHLOROthiazide (HYDRODIURIL, ESIDRIX) 25 mg tablet Take 25 mg by mouth once daily. losartan (COZAAR) 50 mg tablet Take 50 mg by mouth once daily. lovastatin 40 mg tablet Take 40 mg by mouth daily at bedtime. montelukast (SINGULAIR) 10 mg tablet Take 10 mg by mouth daily at bedtime. naproxen (NAPROSYN) 500 mg tablet Take 500 mg by mouth twice daily with meals. semaglutide (OZEMPIC) 0.25 mg or 0.5 mg(2 mg/1.5 mL) pen injector Inject 0.25 mg subcutaneously one time a week. sildenafil (VIAGRA) 100 mg tablet Take 100 mg by mouth as needed. SITagliptin-metFORMIN (JANUMET) 50-1,000 mg per tablet Take 1 tablet by mouth twice daily with meals. syringe w-needle,disposab,3 mL (MONOJECT 3CC SYR 90NV8-7/2 [facility]) No current facility-administered medications on file prior to visit. ROS: Constitutional: negative Gastrointestinal: negative PHYSICAL EXAM: There were no vitals taken for this visit. GENERAL: Wnl nutrition, no deformities, healthy appearing ABDOMEN: Soft, nontender, nondistended GENITOURINARY: MALE EXAM: Penis is circumcised, the shaft skin has the appearance diffusely of mild lichen sclerosis. There are no visible lesions today that are suspicious and require biopsy. DATA/OR LABS TO BE REVIEWED: (Simple=1 data point; Complex= 2 or more) No results found for: PSA Creatinine (mg/dL) Date Value 07/09/2021 0.99 Testosterone (ng/dL) Date Value 08/22/2001 229 ASSESSMENT/PLAN: 1. Lichen sclerosus of penis - ICD9: 701.0, ICD10: N48.0 Discussed with patient, recommend clobetasol cream twice daily for a week or so when he is symptomatic. Prescription sent. Recommend repeat physical exam in 6 months. Edgar Do MD documented in this encounter [facility] 07-11-2022 History of Present illness Narrative HPI: : 51yo male with PMH of T2DM, HTN, HLD, embryonal cell carcinoma s/p right radical orchiectomy in 2001, lateral glans penile lesion s/p punch biopsy 05/13/21 locally with path showing low grade penile squamous intraepithelial neoplasia s/p excisional biopsy of glans penis, biopsy of ventral mid to proximal penile skin lesion and takedown of distal penile skin adhesions on 07/13/21 (path: benign on the glans and distal penis but PeIN on mid ventral to proximal shaft biopsy). He underwent re-excision in [facility] on 08/23/21 (1.6cm x 1cm specimen) which returned squamous hyperplasia with hyperkeratosis. Fidel Lara was last seen by Dr. Do on 03/23/2022 with plan to follow locally with Dr. Amaro for PSA and penile exam, and to follow up prn. Today, states that at the beginning of May,, felt what would be like swelling of the foreskin so much so that he could not expose the head of his penis. Reports it doesn't hurt, but it is irritating. The only thing he noticed differently is that he was on cold medicine for a head cold. Since discontinuing cold medicine, a month later it has resolved. Pain with intercourse was worse when there was active swelling. Now it is still painful, not as bad. He also lump on the bottom of shaft. Hard to the touch. Barely there now. This was not painful, patient reports. Still using Viagra. Happy with the results. Complaining of no other health issues. Denies interval UTI. PAST MEDICAL HISTORY Diagnosis Date Glaucoma suspect High cholesterol Hypertension Type 2 diabetes mellitus (HCC) PAST SURGICAL HISTORY Procedure Laterality Date PAST SURGICAL HISTORY OF lesions removed from penis PAST SURGICAL HISTORY OF testical removed due to cancer Social History Tobacco Use Smoking status: Never Smokeless tobacco: Never Vaping Use Vaping Use: Never used Substance Use Topics Alcohol use: Not Currently Drug use: Never Current Outpatient Medications on File Prior to Visit Medication Sig testosterone cypionate (DEPO-TESTOSTERONE) 200 mg/mL injection INJECT 1 ML IN THE MUSCLE TWICE PER WEEK sulfamethoxazole-trimethoprim (BACTRIM DS,SEPTRA DS) 800-160 mg per tablet fexofenadine (VERONICA) 180 mg tablet Take 180 mg by mouth. empagliflozin (JARDIANCE) 10 mg tablet Take 10 mg by mouth daily with breakfast. escitalopram oxalate (LEXAPRO) 20 mg tablet Take 20 mg by mouth once daily. fenofibrate nanocrystallized (TRICOR) 145 mg tablet Take 145 mg by mouth once daily. hydroCHLOROthiazide (HYDRODIURIL, ESIDRIX) 25 mg tablet Take 25 mg by mouth once daily. losartan (COZAAR) 50 mg tablet Take 50 mg by mouth once daily. lovastatin 40 mg tablet Take 40 mg by mouth daily at bedtime. montelukast (SINGULAIR) 10 mg tablet Take 10 mg by mouth daily at bedtime. naproxen (NAPROSYN) 500 mg tablet Take 500 mg by mouth twice daily with meals. semaglutide (OZEMPIC) 0.25 mg or 0.5 mg(2 mg/1.5 mL) pen injector Inject 0.25 mg subcutaneously one time a week. sildenafil (VIAGRA) 100 mg tablet Take 100 mg by mouth as needed. SITagliptin-metFORMIN (JANUMET) 50-1,000 mg per tablet Take 1 tablet by mouth twice daily with meals. syringe w-needle,disposab,3 mL (MONOJECT 3CC SYR 50OL6-7/2 [facility]) No current facility-administered medications on file prior to visit. ROS: Constitutional: negative Gastrointestinal: negative DATA/OR LABS TO BE REVIEWED: (Simple=1 data point; Complex= 2 or more) No results found for: PSA Creatinine (mg/dL) Date Value 07/09/2021 0.99 Testosterone (ng/dL) Date Value 08/22/2001 229 Fatmata Ceja RN PHYSICIAN NOTE OF PERSONAL INVOLVEMENT IN CARE: I have interviewed the patient and have confirmed and edited PFSH and ROS obtained by the RN. I have performed the Physical Examination, Assessment and Plan as noted below. HPI: PMH of T2DM, HTN, HLD, embryonal cell carcinoma s/p right radical orchiectomy in 2001, lateral glans penile lesion s/p punch biopsy 05/13/21 locally with path showing low grade penile squamous intraepithelial neoplasia, s/p excisional biopsy of glans penis, biopsy of ventral mid to proximal penile skin lesion and takedown of distal penile skin adhesions on 07/13/21 (path: benign on the glans and distal penis but PeIN on mid ventral to proximal shaft biopsy). He underwent re-excision in [facility] on 08/23/21 (1.6cm x 1cm specimen) which returned squamous hyperplasia with hyperkeratosis. Today, states that at the beginning of May 2022, felt what would be like swelling of the foreskin such that he could not expose the head of his penis. A month later it has resolved. Pain with intercourse was worse when there was active swelling. Now it is not as bad. He also lump on the bottom of shaft. Hard to the touch. This was not painful. Patient denies voiding difficulties. PHYSICAL EXAM: There were no vitals taken for this visit. GENERAL: Wnl nutrition, no deformities, healthy appearing ABDOMEN: Soft, nontender, nondistended GENITOURINARY: MALE EXAM: Prominent mons escutcheon that tends to obscure the penis, although it can be easily exposed today. He has undergone prior circumcision. Glans penis is not significantly restricted at this time. There is a 2 mm reddened firm lesion on the ventral aspect of the penis. ASSESSMENT/PLAN: 1. Penile lesion - ICD9: 607.89, ICD10: N48.9 (primary diagnosis) 2. Penile intraepithelial neoplasia - ICD9: 239.5, ICD10: D49.59 Recommend the patient return for excision of the small reddened lesion on the ventral aspect of the penis. Questions were answered and patient agrees with plan. 3. 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 I spent a total of 20 minutes on the date of the service which included preparing to see the patient, face to face patient care, completing clinical documentation, obtaining and/or reviewing separately obtained history, performing a medically appropriate examination, counseling and educating the patient/family/caregiver, ordering medications, tests, or procedures, and care coordination. Signature: Edgar Do MD documented in this encounter [facility] 05-27-2022 Hospital Discharge instructions Patient Education 05/27/2022 15:16:46 Cancer Screening for Men Cancer Screening for Men A cancer screening is a test or exam that checks for cancer. Your health care provider will recommend specific cancer screenings based on your age, personal history, and family history of cancer. Work with your health care provider to create a cancer screening schedule that protects your health. Why is cancer screening done? Cancer screening is done to look for cancer in the very early stages, before it spreads and becomes harder to treat and before you would start to notice symptoms. Finding cancer early improves the chances of successful treatment. It may save your life. Who should be screened for cancer? All men should be screened for colorectal cancer and skin cancer. Your health care provider may recommend screenings for other types of cancer if: You had cancer before. You have a family member with cancer. You have abnormal genes that could increase the risk of cancer. You have risk factors for certain cancers, such as smoking. When you should be screened for cancer depends on: Your age. Your medical history and your family's medical history. Certain lifestyle factors, such as smoking. Environmental exposure, such as to asbestos. What are some common cancer screenings? Lung cancer Lung cancer screening is done with a CT scan that looks for abnormal cells in the lungs. Discuss lung cancer screening with your health care provider if you are 55 74 years old and if any of the following apply to you: You currently smoke. You used to smoke heavily. You have a smoking history of 1 pack a day for 30 years or 2 packs a day for 15 years. You have quit smoking within the past 15 years. If you smoke heavily or if you used to smoke, you may need to be screened every year. Prostate cancer Prostate cancer screening is done with blood tests and an exam in which a health care provider uses a gloved finger to check prostate size (digital rectal exam). You may need to be screened for prostate cancer if: You have risk factors of prostate cancer, such as being or having a close family member with prostate cancer. You have inherited gene changes or a genetic condition, including BRCA1 or BRCA2 gene mutations or Tinajero syndrome. You have symptoms of prostate cancer, such as problems urinating or erectile dysfunction. Prostate cancer screening for men with average risk may start at age 50. Men with risk factors may need to be screened earlier at age 40 45. Once you have been screened for prostate cancer, future screening may be recommended based on the results of your blood tests. Colorectal cancer All adults should have screening for colorectal cancer starting at age 50 and continuing until age 75. Your health care provider may recommend screening at age 45. You will have tests every 1 10 years, depending on your results and the type of screening test. If you have a family history of colon or rectal cancer or other risk factors, you may need to start having screenings earlier. Talk with your health care provider about which screening test is right for you and how often you should be screened. Colorectal cancer screening looks for cancer or for growths called polyps that often form before cancer starts. Tests to look for cancer or polyps include: Colonoscopy or flexible sigmoidoscopy. For these procedures, a flexible tube with a small camera is inserted into the rectum. CT colonography. This test uses X-rays and a contrast dye to check the colon for polyps. If a polyp is found, you may need to have a colonoscopy so the polyp can be located and removed. Tests to look for cancer in the stool (feces) include: Guaiac-based fecal occult blood test (FOBT). This test detects blood in stool. It can be done at home with a kit. Fecal immunochemical test (FIT). This test detects blood in stool. For this test, you will need to collect stool samples at home. Stool DNA test. This test looks for blood in stool and any changes in DNA that can lead to colon cancer. For this test, you will need to collect a stool sample at home and send it to a lab. Skin cancer Skin cancer screening is done by checking the skin for unusual moles or spots and any changes in existing moles. Your health care provider should check your skin for signs of skin cancer at every physical exam. You should check your skin every month and tell your health care provider right away if anything looks unusual. Men with a ltxnbd-galf-ussaon risk for skin cancer may want to see a labor delivery specialist (coffee grower) for an annual body check. Where to find more information National [employer]: https://www.cancer.gov/about-canc er/screening Centers for Disease Control and Prevention: https://www.cdc.gov/cancer/dcpc/p revention/screening.htm [place] Cancer Society: https://www.cancer.org/latest-new s/1-csfgnu-hhrkvlgig-qqndp-qgp-ig n.html Contact a health care provider if: You have concerns about any signs or symptoms of cancer, such as: ?Moles that have an unusual shape or color. ?Changes in existing moles. ?A sore on your skin that does not heal. ?Blood in your urine or stool. ?Fatigue that does not go away. ?Frequent pain or cramping in your abdomen. ?Coughing or trouble breathing that does not go away. ?Coughing up blood. ?Losing weight without trying. ?Changes in urination habits. ?Painful urination or ejaculation. Summary Be aware of and watch for signs and symptoms of cancer, especially symptoms of lung cancer, prostate cancer, colorectal cancer, and skin cancer. Early detection of cancer with cancer screening may save your life. Talk with your health care provider about your specific cancer risks. Work together with your health care provider to create a cancer screening plan that is right for you. This information is not intended to replace advice given to you by your health care provider. Make sure you discuss any questions you have with your health care provider. Document Released: 01/05/2017 Document Revised: 12/28/2018 Document Reviewed: 01/05/2017 [employer] Patient Education 2020 [employer] Follow Up Care 05/23/2022 09:05:14 With:ENDER VELEZ, Estrella Lim, URL Address: [address] [place], [place] [id number]- When: Unknown [facility]23-[facility]22 History of Present illness Narrative HPI: 51yo male with PMH of T2DM, HTN, HLD, embryonal cell carcinoma s/p right radical orchiectomy in 2001, lateral glans penile lesion s/p punch biopsy 05/13/21 locally with path showing low grade penile squamous intraepithelial neoplasia s/p excisional biopsy of glans penis, biopsy of ventral mid to proximal penile skin lesion and takedown of distal penile skin adhesions on 07/13/21 (path: benign on the glans and distal penis but PeIN on mid ventral to proximal shaft biopsy). He underwent re-excision in [facility] on 08/23/21 (1.6cm x 1cm specimen) which returned squamous hyperplasia with hyperkeratosis. PAST MEDICAL HISTORY Diagnosis Date Glaucoma suspect High cholesterol Hypertension Type 2 diabetes mellitus (HCC) PAST SURGICAL HISTORY Procedure Laterality Date PAST SURGICAL HISTORY OF lesions removed from penis PAST SURGICAL HISTORY OF testical removed due to cancer Social History Tobacco Use Smoking status: Never Smokeless tobacco: Never Vaping Use Vaping Use: Never used Substance Use Topics Alcohol use: Not Currently Drug use: Never Current Outpatient Medications on File Prior to Visit Medication Sig testosterone cypionate (DEPO-TESTOSTERONE) 200 mg/mL injection INJECT 1 ML IN THE MUSCLE TWICE PER WEEK sulfamethoxazole-trimethoprim (BACTRIM DS,SEPTRA DS) 800-160 mg per tablet fexofenadine (VERONICA) 180 mg tablet Take 180 mg by mouth. empagliflozin (JARDIANCE) 10 mg tablet Take 10 mg by mouth daily with breakfast. escitalopram oxalate (LEXAPRO) 20 mg tablet Take 20 mg by mouth once daily. fenofibrate nanocrystallized (TRICOR) 145 mg tablet Take 145 mg by mouth once daily. hydroCHLOROthiazide (HYDRODIURIL, ESIDRIX) 25 mg tablet Take 25 mg by mouth once daily. losartan (COZAAR) 50 mg tablet Take 50 mg by mouth once daily. lovastatin 40 mg tablet Take 40 mg by mouth daily at bedtime. montelukast (SINGULAIR) 10 mg tablet Take 10 mg by mouth daily at bedtime. naproxen (NAPROSYN) 500 mg tablet Take 500 mg by mouth twice daily with meals. semaglutide (OZEMPIC) 0.25 mg or 0.5 mg(2 mg/1.5 mL) pen injector Inject 0.25 mg subcutaneously one time a week. sildenafil (VIAGRA) 100 mg tablet Take 100 mg by mouth as needed. SITagliptin-metFORMIN (JANUMET) 50-1,000 mg per tablet Take 1 tablet by mouth twice daily with meals. testosterone 200 mg pllt by IMPLANTATION route. syringe w-needle,disposab,3 mL (MONOJECT 3CC SYR 34BE4-7/2 [facility]) No current facility-administered medications on file prior to visit. ROS: Constitutional: negative Gastrointestinal: negative PHYSICAL EXAM: There were no vitals taken for this visit. GENERAL: Wnl nutrition, no deformities, healthy appearing ABDOMEN: Soft, nontender, nondistended, no masses. 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 I agree with the resident's findings and plan as documented and have discussed the case and management of the patient's care with the resident. Patient presents for follow-up, has been doing well, denies pain in the genital region and is pleased with outcome of surgery. He described a couple of recent PSA values with us, 1 was elevated after a long car ride and then a follow-up was apparently normal, he was asking about whether further testing was needed for this. On examination, the penis is well-healed throughout, no abnormal lesions or erythematous lesions seen today. ASSESSMENT/PLAN: 1. 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 Penile lesion - ICD9: 607.89, ICD10: N48.9 Patient doing well at this time, he will follow-up with Dr. Amaro for periodic physical examination and PSA monitoring. Return to clinic here as needed. Signature: Edgar Do MD Date: 03/23/2022 Time: 5:34 PM documented in this encounter [facility] 02-24-2022 Hospital Discharge instructions Patient Education 02/24/2022 12:24:35 High-Fiber Diet High-Fiber Diet Fiber, also called dietary fiber, is a type of carbohydrate that is found in fruits, vegetables, whole grains, and beans. A high-fiber diet can have many health benefits. Your health care provider may recommend a high-fiber diet to help: Prevent constipation. Fiber can make your bowel movements more regular. Lower your cholesterol. Relieve the following conditions: ?Swelling of veins in the anus (hemorrhoids). ?Swelling and irritation (inflammation) of specific areas of the digestive tract (uncomplicated diverticulosis). ?A problem of the large intestine (colon) that sometimes causes pain and diarrhea (irritable bowel syndrome, IBS). Prevent overeating as part of a weight-loss plan. Prevent heart disease, type 2 diabetes, and certain cancers. What is my plan? The recommended daily fiber intake in grams (g) includes: 38 g for men age 50 or younger. 30 g for men over age 50. 25 g for women age 50 or younger. 21 g for women over age 50. You can get the recommended daily intake of dietary fiber by: Eating a variety of fruits, vegetables, grains, and beans. Taking a fiber supplement, if it is not possible to get enough fiber through your diet. What do I need to know about a high-fiber diet? It is better to get fiber through food sources rather than from fiber supplements. There is not a lot of research about how effective supplements are. Always check the fiber content on the nutrition facts label of any prepackaged food. Look for foods that contain 5 g of fiber or more per serving. Talk with a diet and youth care specialist (dietitian) if you have questions about specific foods that are recommended or not recommended for your medical condition, especially if those foods are not listed below. Gradually increase how much fiber you consume. If you increase your intake of dietary fiber too quickly, you may have bloating, cramping, or gas. Drink plenty of water. Water helps you to digest fiber. What are tips for following this plan? Eat a wide variety of high-fiber foods. Make sure that half of the grains that you eat each day are whole grains. Eat breads and cereals that are made with whole-grain flour instead of refined flour or white flour. Eat brown rice, bulgur wheat, or millet instead of white rice. Start the day with a breakfast that is high in fiber, such as a cereal that contains 5 g of fiber or more per serving. Use beans in place of meat in soups, salads, and pasta dishes. Eat high-fiber snacks, such as berries, raw vegetables, nuts, and popcorn. Choose whole fruits and vegetables instead of processed forms like juice or sauce. What foods can I eat? Fruits Berries. Pears. Apples. Oranges. Avocado. Prunes and raisins. Dried figs. Vegetables Sweet potatoes. Spinach. Kale. Artichokes. Cabbage. Broccoli. Cauliflower. Green peas. Carrots. Squash. Grains Whole-grain breads. Multigrain cereal. Oats and oatmeal. Brown rice. Barley. Bulgur wheat. Millet. Quinoa. Bran muffins. Popcorn. [place] wafer crackers. Meats and other proteins [place], kidney, and yañez beans. Soybeans. Split peas. Lentils. Nuts and seeds. Dairy Fiber-fortified yogurt. Beverages Fiber-fortified soy milk. Fiber-fortified orange juice. Other foods Fiber bars. The items listed above may not be a complete list of recommended foods and beverages. Contact a dietitian for more options. What foods are not recommended? Fruits Fruit juice. Cooked, strained fruit. Vegetables Fried potatoes. Canned vegetables. Well-cooked vegetables. Grains White bread. Pasta made with refined flour. White rice. Meats and other proteins Fatty cuts of meat. Fried chicken or fried fish. Dairy Milk. Yogurt. Cream cheese. Sour cream. Fats and oils [place]. Beverages Soft drinks. Other foods Cakes and pastries. The items listed above may not be a complete list of foods and beverages to avoid. Contact a dietitian for more information. Summary Fiber is a type of carbohydrate. It is found in fruits, vegetables, whole grains, and beans. There are many health benefits of eating a high-fiber diet, such as preventing constipation, lowering blood cholesterol, helping with weight loss, and reducing your risk of heart disease, diabetes, and certain cancers. Gradually increase your intake of fiber. Increasing too fast can result in cramping, bloating, and gas. Drink plenty of water while you increase your fiber. The best sources of fiber include whole fruits and vegetables, whole grains, nuts, seeds, and beans. This information is not intended to replace advice given to you by your health care provider. Make sure you discuss any questions you have with your health care provider. Document Released: 04/10/2006 Document Revised: 02/12/2018 Document Reviewed: 02/12/2018 [employer] Patient Education 2020 [employer]. 02/24/2022 12:24:34 Hemorrhoids Hemorrhoids Hemorrhoids are swollen veins in and around the rectum or anus. There are two types of hemorrhoids: Internal hemorrhoids. These occur in the veins that are just inside the rectum. They may poke through to the outside and become irritated and painful. External hemorrhoids. These occur in the veins that are outside the anus and can be felt as a painful swelling or hard lump near the anus. Most hemorrhoids do not cause serious problems, and they can be managed with home treatments such as diet and lifestyle changes. If home treatments do not help the symptoms, procedures can be done to shrink or remove the hemorrhoids. What are the causes? This condition is caused by increased pressure in the anal area. This pressure may result from various things, including: Constipation. Straining to have a bowel movement. Diarrhea. . Obesity. Sitting for long periods of time. Heavy lifting or other activity that causes you to strain. Anal sex. Riding a bike for a long period of time. What are the signs or symptoms? Symptoms of this condition include: Pain. Anal itching or irritation. Rectal bleeding. Leakage of stool (feces). Anal swelling. One or more lumps around the anus. How is this diagnosed? This condition can often be diagnosed through a visual exam. Other exams or tests may also be done, such as: An exam that involves feeling the rectal area with a gloved hand (digital rectal exam). An exam of the anal canal that is done using a small tube (anoscope). A blood test, if you have lost a significant amount of blood. A test to look inside the colon using a flexible tube with a camera on the end (sigmoidoscopy or colonoscopy). How is this treated? This condition can usually be treated at home. However, various procedures may be done if dietary changes, lifestyle changes, and other home treatments do not help your symptoms. These procedures can help make the hemorrhoids smaller or remove them completely. Some of these procedures involve surgery, and others do not. Common procedures include: Rubber band ligation. Rubber bands are placed at the base of the hemorrhoids to cut off their blood supply. Sclerotherapy. Medicine is injected into the hemorrhoids to shrink them. Infrared coagulation. A type of light energy is used to get rid of the hemorrhoids. Hemorrhoidectomy surgery. The hemorrhoids are surgically removed, and the veins that supply them are tied off. Stapled hemorrhoidopexy surgery. The surgeon fabio the base of the hemorrhoid to the rectal wall. Follow these instructions at home: Eating and drinking Eat foods that have a lot of fiber in them, such as whole grains, beans, nuts, fruits, and vegetables. Ask your health care provider about taking products that have added fiber (fiber supplements). Reduce the amount of fat in your diet. You can do this by eating low-fat dairy products, eating less red meat, and avoiding processed foods. Drink enough fluid to keep your urine pale yellow. Managing pain and swelling Take warm sitz baths for 20 minutes, 3 4 times a day to ease pain and discomfort. You may do this in a bathtub or using a portable sitz bath that fits over the toilet. If directed, apply ice to the affected area. Using ice packs between sitz baths may be helpful. ?Put ice in a plastic bag. ?Place a towel between your skin and the bag. ?Leave the ice on for 20 minutes, 2 3 times a day. General instructions Take hghg-wel-iivybxm and prescription medicines only as told by your health care provider. Use medicated creams or suppositories as told. Get regular exercise. Ask your health care provider how much and what kind of exercise is best for you. In general, you should do moderate exercise for at least 30 minutes on most days of the week (150 minutes each week). This can include activities such as walking, biking, or yoga. Go to the bathroom when you have the urge to have a bowel movement. Do not wait. Avoid straining to have bowel movements. Keep the anal area dry and clean. Use wet toilet paper or moist towelettes after a bowel movement. Do not sit on the toilet for long periods of time. This increases blood pooling and pain. Keep all follow-up visits as told by your health care provider. This is important. Contact a health care provider if you have: Increasing pain and swelling that are not controlled by treatment or medicine. Difficulty having a bowel movement, or you are unable to have a bowel movement. Pain or inflammation outside the area of the hemorrhoids. Get help right away if you have: Uncontrolled bleeding from your rectum. Summary Hemorrhoids are swollen veins in and around the rectum or anus. Most hemorrhoids can be managed with home treatments such as diet and lifestyle changes. Taking warm sitz baths can help ease pain and discomfort. In severe cases, procedures or surgery can be done to shrink or remove the hemorrhoids. This information is not intended to replace advice given to you by your health care provider. Make sure you discuss any questions you have with your health care provider. Document Released: 04/07/2001 Document Revised: 2019 Document Reviewed: 08/30/2018 [employer] Patient Education 2020 [employer]. 02/24/2022 12:24:31 Diverticulosis Diverticulosis Diverticulosis is a condition that develops when small pouches (diverticula) form in the wall of the large intestine (colon). The colon is where water is absorbed and stool is formed. The pouches form when the inside layer of the colon pushes through weak spots in the outer layers of the colon. You may have a few pouches or many of them. What are the causes? The cause of this condition is not known. What increases the risk? The following factors may make you more likely to develop this condition: Being older than age 60. Your risk for this condition increases with age. Diverticulosis is rare among people younger than age 30. By age 80, many people have it. Eating a low-fiber diet. Having frequent constipation. Being overweight. Not getting enough exercise. Smoking. Taking jmrs-jmz-resledc pain medicines, like aspirin and ibuprofen. Having a family history of diverticulosis. What are the signs or symptoms? In most people, there are no symptoms of this condition. If you do have symptoms, they may include: Bloating. Cramps in the abdomen. Constipation or diarrhea. Pain in the lower left side of the abdomen. How is this diagnosed? This condition is most often diagnosed during an exam for other colon problems. Because diverticulosis usually has no symptoms, it often cannot be diagnosed independently. This condition may be diagnosed by: Using a flexible scope to examine the colon (colonoscopy). Taking an X-ray of the colon after dye has been put into the colon (barium enema). Doing a CT scan. How is this treated? You may not need treatment for this condition if you have never developed an infection related to diverticulosis. If you have had an infection before, treatment may include: Eating a high-fiber diet. This may include eating more fruits, vegetables, and grains. Taking a fiber supplement. Taking a live bacteria supplement (probiotic). Taking medicine to relax your colon. Taking antibiotic medicines. Follow these instructions at home: Drink 6 8 glasses of water or more each day to prevent constipation. Try not to strain when you have a bowel movement. If you have had an infection before: ?Eat more fiber as directed by your health care provider or your diet and youth care specialist (dietitian). ?Take a fiber supplement or probiotic, if your health care provider approves. Take pypa-rps-vmjpkbf and prescription medicines only as told by your health care provider. If you were prescribed an antibiotic, take it as told by your health care provider. Do not stop taking the antibiotic even if you start to feel better. Keep all follow-up visits as told by your health care provider. This is important. Contact a health care provider if: You have pain in your abdomen. You have bloating. You have cramps. You have not had a bowel movement in 3 days. Get help right away if: Your pain gets worse. Your bloating becomes very bad. You have a fever or chills, and your symptoms suddenly get worse. You vomit. You have bowel movements that are bloody or black. You have bleeding from your rectum. Summary Diverticulosis is a condition that develops when small pouches (diverticula) form in the wall of the large intestine (colon). You may have a few pouches or many of them. This condition is most often diagnosed during an exam for other colon problems. If you have had an infection related to diverticulosis, treatment may include increasing the fiber in your diet, taking supplements, or taking medicines. This information is not intended to replace advice given to you by your health care provider. Make sure you discuss any questions you have with your health care provider. Document Released: 01/05/2005 Document Revised: 03/23/2018 Document Reviewed: 02/27/2017 [employer] Patient Education 2020 [employer]. 02/24/2022 12:24:30 Colon Polyps Colon Polyps Polyps are tissue growths inside the body. Polyps can grow in many places, including the large intestine (colon). A polyp may be a round bump or a mushroom-shaped growth. You could have one polyp or several. Most colon polyps are noncancerous (benign). However, some colon polyps can become cancerous over time. Finding and removing the polyps early can help prevent this. What are the causes? The exact cause of colon polyps is not known. What increases the risk? You are more likely to develop this condition if you: Have a family history of colon cancer or colon polyps. Are older than 50 or older than 45 if you are . Have inflammatory bowel disease, such as ulcerative colitis or Crohn's disease. Have certain hereditary conditions, such as: ?Familial adenomatous polyposis. ?Tinajero syndrome. ?Turcot syndrome. ?Peutz Jeghers syndrome. Are overweight. Smoke cigarettes. Do not get enough exercise. Drink too much alcohol. Eat a diet that is high in fat and red meat and low in fiber. Had childhood cancer that was treated with abdominal radiation. What are the signs or symptoms? Most polyps do not cause symptoms. If you have symptoms, they may include: Blood coming from your rectum when having a bowel movement. Blood in your stool. The stool may look dark red or black. Abdominal pain. A change in bowel habits, such as constipation or diarrhea. How is this diagnosed? This condition is diagnosed with a colonoscopy. This is a procedure in which a lighted, flexible scope is inserted into the anus and then passed into the colon to examine the area. Polyps are sometimes found when a colonoscopy is done as part of routine cancer screening tests. How is this treated? Treatment for this condition involves removing any polyps that are found. Most polyps can be removed during a colonoscopy. Those polyps will then be tested for cancer. Additional treatment may be needed depending on the results of testing. Follow these instructions at home: Lifestyle Maintain a healthy weight, or lose weight if recommended by your health care provider. Exercise every day or as told by your health care provider. Do not use any products that contain nicotine or tobacco, such as cigarettes and e-cigarettes. If you need help quitting, ask your health care provider. If you drink alcohol, limit how much you have: ?0 1 drink a day for women. ? 0 2 drinks a day for men. Be aware of how much alcohol is in your drink. In the [place] one drink equals one 12 oz bottle of beer (355 mL), one 5 oz glass of wine (148 mL), or one 1 oz shot of hard liquor (44 mL). Eating and drinking Eat foods that are high in fiber, such as fruits, vegetables, and whole grains. Eat foods that are high in calcium and vitamin D, such as milk, cheese, yogurt, eggs, liver, fish, and broccoli. Limit foods that are high in fat, such as fried foods and desserts. Limit the amount of red meat and processed meat you eat, such as hot dogs, sausage, srivastava, and lunch meats. General instructions Keep all follow-up visits as told by your health care provider. This is important. ?This includes having regularly scheduled colonoscopies. ?Talk to your health care provider about when you need a colonoscopy. Contact a health care provider if: You have new or worsening bleeding during a bowel movement. You have new or increased blood in your stool. You have a change in bowel habits. You lose weight for no known reason. Summary Polyps are tissue growths inside the body. Polyps can grow in many places, including the colon. Most colon polyps are noncancerous (benign), but some can become cancerous over time. This condition is diagnosed with a colonoscopy. Treatment for this condition involves removing any polyps that are found. Most polyps can be removed during a colonoscopy. This information is not intended to replace advice given to you by your health care provider. Make sure you discuss any questions you have with your health care provider. Document Released: 01/04/2005 Document Revised: 07/26/2018 Document Reviewed: 07/26/2018 [employer] Patient Education 2020 [employer]. Follow Up Care 12/20/2021 15:14:06 With:Jody Ng CNP Address: When:1 year only if needed [facility] 12-08-2021 Hospital Discharge instructions Patient Education 12/08/2021 14:18:11 Diverticulosis MAGR (CUSTOM) Diverticulosis Many people have small pouches in their colon called diverticulum. The diverticulum bulge outward through weak spots in the colon. You could have one or more of these pouches in the colon. The condition of having these pouches in the colon is called diverticulosis or diverticular disease. Diverticulosis is usually diagnosed by tests to evaluate something else. For example, you may have had a colonoscopy to screen for colon cancer when the diverticulosis was found. Most people with diverticulosis do not have any discomfort or problems. If symptoms develop, they may include mild cramps, bloating, and constipation. A complication of this condition is called diverticulitis. This is when the diverticulum become inflamed and infected. How to treat diverticulosis: Increasing the amount of fiber in the diet may reduce symptoms of diverticulosis and prevent complications such as diverticulitis (infected diverticuli). Fiber keeps stool soft and lowers pressure inside the colon so that bowel contents can move through easily. You should eat 20 to 35 grams of fiber each day. The table below shows the amount of fiber in some foods that you can easily add to your diet. Adding fiber slowly may decrease the bloating and fullness sometimes felt with an immediate high fiber diet. The doctor may also recommend taking a fiber product such as Citrucel or Metamucil once a day. In the past people with diverticulosis were to avoid nuts, corn, and seeds. This has not been found to be true. If you find that certain foods create cramping or bloating, avoid that food. Foods high in fiber include: Fresh fruits, fresh vegetables, legumes (beans), whole wheat bread, bran muffins or cereal, and nuts. See the table below for examples of high fiber foods. Remember, your goal is 20-35 grams per day. Amount of fiber in different foods Food Serving Grams of fiber Fruits Apple (with skin) 1 medium apple 4.4 Banana 1 medium banana 3.1 Oranges 1 orange 3.1 Prunes 1 cup, pitted 12.4 Juices Apple, unsweetened, w/added ascorbic acid 1 cup 0.5 Grapefruit, white, canned, sweetened 1 cup 0.2 Grape, unsweetened, w/added ascorbic acid 1 cup 0.5 Stover 1 cup 0.7 Vegetables Cooked Green beans 1 cup 4.0 Carrots 1/2 cup sliced 2.3 Peas 1 cup 8.8 Potato (baked, with skin) 1 medium potato 3.8 Raw [place] (with peel) 1 cucumber 1.5 Lettuce 1 cup shredded 0.5 Tomato 1 medium tomato 1.5 Spinach 1 cup 0.7 Legumes Baked beans, canned, no salt added 1 cup 13.9 Kidney beans, canned 1 cup 13.6 Thomson beans, canned 1 cup 11.6 Lentils, boiled 1 cup 15.6 Breads, pastas, flours Bran muffins 1 medium muffin 5.2 Oatmeal, cooked 1 cup 4.0 White bread 1 slice 0.6 Whole-wheat bread 1 slice 1.9 Pasta and rice, cooked Macaroni 1 cup 2.5 Rice, brown 1 cup 3.5 Rice, white 1 cup 0.6 Spaghetti (regular) 1 cup 2.5 Nuts Almonds 1/2 cup 8.7 Peanuts 1/2 cup 7.9 Chart from [facility], [place] 2013. SEEK IMMEDIATE MEDICAL CARE IF: You develop abdominal (belly) pain. An oral temperature above _ 101 F__develops. Repeated vomiting occurs. Blood is being passed in stools (bright red or black tarry stools). You develop any bowel problems or changes which you have not had before. Extra Information: To learn how much fiber and other nutrients are in different foods, visit the [place] Department of Agriculture (USDA) National Nutrient Database at: http://www.nal.usda.gov/fnic/food comp/search/ Created using data from the USDA National Nutrient Database for Standard Reference. Available at http://www.nal.usda.gov/fnic/food comp/search/. Information adapted from: [facility] Patient Information 2009 [employer] [facility]. [facility] 2012 [email or web address].Jigsaw/contents/ [email or web address]-[email or web address]-wujouq-the-b asics 12/08/2021 14:18:11 Hemorrhoids, Zpkl-ur-Wyiu Hemorrhoids Hemorrhoids are swollen veins that may develop: In the butt (rectum). These are called internal hemorrhoids. Around the opening of the butt (anus). These are called external hemorrhoids. Hemorrhoids can cause pain, itching, or bleeding. Most of the time, they do not cause serious problems. They usually get better with diet changes, lifestyle changes, and other home treatments. What are the causes? This condition may be caused by: Having trouble pooping (constipation). Pushing hard (straining) to poop. Watery poop (diarrhea). . Being very overweight (obese). Sitting for long periods of time. Heavy lifting or other activity that causes you to strain. Anal sex. Riding a bike for a long period of time. What are the signs or symptoms? Symptoms of this condition include: Pain. Itching or soreness in the butt. Bleeding from the butt. Leaking poop. Swelling in the area. One or more lumps around the opening of your butt. How is this diagnosed? A doctor can often diagnose this condition by looking at the affected area. The doctor may also: Do an exam that involves feeling the area with a gloved hand (digital rectal exam). Examine the area inside your butt using a small tube (anoscope). Order blood tests. This may be done if you have lost a lot of blood. Have you get a test that involves looking inside the colon using a flexible tube with a camera on the end (sigmoidoscopy or colonoscopy). How is this treated? This condition can usually be treated at home. Your doctor may tell you to change what you eat, make lifestyle changes, or try home treatments. If these do not help, procedures can be done to remove the hemorrhoids or make them smaller. These may involve: Placing rubber bands at the base of the hemorrhoids to cut off their blood supply. Injecting medicine into the hemorrhoids to shrink them. Shining a type of light energy onto the hemorrhoids to cause them to fall off. Doing surgery to remove the hemorrhoids or cut off their blood supply. Follow these instructions at home: Eating and drinking Eat foods that have a lot of fiber in them. These include whole grains, beans, nuts, fruits, and vegetables. Ask your doctor about taking products that have added fiber (fibersupplements). Reduce the amount of fat in your diet. You can do this by: ?Eating low-fat dairy products. ?Eating less red meat. ?Avoiding processed foods. Drink enough fluid to keep your pee (urine) pale yellow. Managing pain and swelling Take a warm-water bath (sitz bath) for 20 minutes to ease pain. Do this 3 4 times a day. You may do this in a bathtub or using a portable sitz bath that fits over the toilet. If told, put ice on the painful area. It may be helpful to use ice between your warm baths. ?Put ice in a plastic bag. ?Place a towel between your skin and the bag. ?Leave the ice on for 20 minutes, 2 3 times a day. General instructions Take ryga-hrz-mzmgewi and prescription medicines only as told by your doctor. ?Medicated creams and medicines may be used as told. Exercise often. Ask your doctor how much and what kind of exercise is best for you. Go to the bathroom when you have the urge to poop. Do not wait. Avoid pushing too hard when you poop. Keep your butt dry and clean. Use wet toilet paper or moist towelettes after pooping. Do not sit on the toilet for a long time. Keep all follow-up visits as told by your doctor. This is important. Contact a doctor if you: Have pain and swelling that do not get better with treatment or medicine. Have trouble pooping. Cannot poop. Have pain or swelling outside the area of the hemorrhoids. Get help right away if you have: Bleeding that will not stop. Summary Hemorrhoids are swollen veins in the butt or around the opening of the butt. They can cause pain, itching, or bleeding. Eat foods that have a lot of fiber in them. These include whole grains, beans, nuts, fruits, and vegetables. Take a warm-water bath (sitz bath) for 20 minutes to ease pain. Do this 3 4 times a day. This information is not intended to replace advice given to you by your health care provider. Make sure you discuss any questions you have with your health care provider. Document Released: 01/17/2009 Document Revised: 04/18/2019 Document Reviewed: 08/30/2018 [employer] Patient Education 2020 [employer]. 12/08/2021 14:18:11 Colon Polyps Colon Polyps Polyps are tissue growths inside the body. Polyps can grow in many places, including the large intestine (colon). A polyp may be a round bump or a mushroom-shaped growth. You could have one polyp or several. Most colon polyps are noncancerous (benign). However, some colon polyps can become cancerous over time. Finding and removing the polyps early can help prevent this. What are the causes? The exact cause of colon polyps is not known. What increases the risk? You are more likely to develop this condition if you: Have a family history of colon cancer or colon polyps. Are older than 50 or older than 45 if you are . Have inflammatory bowel disease, such as ulcerative colitis or Crohn's disease. Have certain hereditary conditions, such as: ?Familial adenomatous polyposis. ?Tinajero syndrome. ?Turcot syndrome. ?Peutz Jeghers syndrome. Are overweight. Smoke cigarettes. Do not get enough exercise. Drink too much alcohol. Eat a diet that is high in fat and red meat and low in fiber. Had childhood cancer that was treated with abdominal radiation. What are the signs or symptoms? Most polyps do not cause symptoms. If you have symptoms, they may include: Blood coming from your rectum when having a bowel movement. Blood in your stool. The stool may look dark red or black. Abdominal pain. A change in bowel habits, such as constipation or diarrhea. How is this diagnosed? This condition is diagnosed with a colonoscopy. This is a procedure in which a lighted, flexible scope is inserted into the anus and then passed into the colon to examine the area. Polyps are sometimes found when a colonoscopy is done as part of routine cancer screening tests. How is this treated? Treatment for this condition involves removing any polyps that are found. Most polyps can be removed during a colonoscopy. Those polyps will then be tested for cancer. Additional treatment may be needed depending on the results of testing. Follow these instructions at home: Lifestyle Maintain a healthy weight, or lose weight if recommended by your health care provider. Exercise every day or as told by your health care provider. Do not use any products that contain nicotine or tobacco, such as cigarettes and e-cigarettes. If you need help quitting, ask your health care provider. If you drink alcohol, limit how much you have: ?0 1 drink a day for women. ? 0 2 drinks a day for men. Be aware of how much alcohol is in your drink. In the [place] one drink equals one 12 oz bottle of beer (355 mL), one 5 oz glass of wine (148 mL), or one 1 oz shot of hard liquor (44 mL). Eating and drinking Eat foods that are high in fiber, such as fruits, vegetables, and whole grains. Eat foods that are high in calcium and vitamin D, such as milk, cheese, yogurt, eggs, liver, fish, and broccoli. Limit foods that are high in fat, such as fried foods and desserts. Limit the amount of red meat and processed meat you eat, such as hot dogs, sausage, srivastava, and lunch meats. General instructions Keep all follow-up visits as told by your health care provider. This is important. ?This includes having regularly scheduled colonoscopies. ?Talk to your health care provider about when you need a colonoscopy. Contact a health care provider if: You have new or worsening bleeding during a bowel movement. You have new or increased blood in your stool. You have a change in bowel habits. You lose weight for no known reason. Summary Polyps are tissue growths inside the body. Polyps can grow in many places, including the colon. Most colon polyps are noncancerous (benign), but some can become cancerous over time. This condition is diagnosed with a colonoscopy. Treatment for this condition involves removing any polyps that are found. Most polyps can be removed during a colonoscopy. This information is not intended to replace advice given to you by your health care provider. Make sure you discuss any questions you have with your health care provider. Document Released: 01/04/2005 Document Revised: 07/26/2018 Document Reviewed: 07/26/2018 [employer] Patient Education 2020 [employer]. Follow Up Care 11/01/2021 16:10:24 With:Vivian SOTELO Address: [facility] [address] [place] [address] [facility] ([employer] When:1 to 2 weeks Comments:Call for any problems. Office will call to schedule follow up appointment [facility] 12-08-2021 Evaluation + Plan note Extrac evan from: Title:Post-anesthesia - General Author:Long Causey DO Date:12/08/21 Plan Transfer/ Discharge: Condition stable. Extracted from: Title:Pre-anesthesia - Endoscopy Author:Long Hightower Jr., DO Date:12/08/21 Plan Citizen Of [place] Society of Anesthesiologists (ASA) physical status classification: Class III. Anesthetic Preoperative Plan Anesthesia: General. . Anesthetic plan, risks, benefits, and alternatives discussed with the patient and/or family. Patient verbalized understanding. Future Appointments Appointment Date:03/15/2022 03:30:00 PM Scheduled Provider:ALEAH DUNCAN PA-C Location:[facility] Appointment Type:URO Office Visit [facility]07-11-2022 Hospital Discharge instructions Patient Education 11/01/2021 15:49:51 Colonoscopy, Adult Colonoscopy, Adult A colonoscopy is an exam to look at the entire large intestine. During the exam, a lubricated, flexible tube that has a camera on the end of it is inserted into the anus and then passed into the rectum, colon, and other parts of the large intestine. You may have a colonoscopy as a part of normal colorectal screening or if you have certain symptoms, such as: Lack of red blood cells (anemia). Diarrhea that does not go away. Abdominal pain. Blood in your stool (feces). A colonoscopy can help screen for and diagnose medical problems, including: Tumors. Polyps. Inflammation. Areas of bleeding. Tell a health care provider about: Any allergies you have. All medicines you are taking, including vitamins, herbs, eye drops, creams, and xgdn-lpv-mwevhsn medicines. Any problems you or family members have had with anesthetic medicines. Any blood disorders you have. Any surgeries you have had. Any medical conditions you have. Any problems you have had passing stool. What are the risks? Generally, this is a safe procedure. However, problems may occur, including: Bleeding. A tear in the intestine. A reaction to medicines given during the exam. Infection (rare). What happens before the procedure? Eating and drinking restrictions Follow instructions from your health care provider about eating and drinking, which may include: A few days before the procedure follow a low-fiber diet. Avoid nuts, seeds, dried fruit, raw fruits, and vegetables. 1 3 days before the procedure follow a clear liquid diet. Drink only clear liquids, such as clear broth or bouillon, black coffee or tea, clear juice, clear soft drinks or sports drinks, gelatin dessert, and popsicles. Avoid any liquids that contain red or purple dye. On the day of the procedure do not eat or drink anything starting 2 hours before the procedure, or within the time period that your health care provider recommends. Up to 2 hours before the procedure, you may continue to drink clear liquids, such as water or clear fruit juice. Bowel prep If you were prescribed an oral bowel prep to clean out your colon: Take it as told by your health care provider. Starting the day before your procedure, you will needto drink a large amount of medicated liquid. The liquid will cause you to have multiple loose stools until your stool is almost clear or light green. If your skin or anus gets irritated from diarrhea, you may use these to relieve the irritation: ?Medicated wipes, such as adult wet wipes with aloe and vitamin E. ?A skin-soothing product like petroleum jelly. If you vomit while drinking the bowel prep, take a break for up to 60 minutes and then begin the bowel prep again. If vomiting continues and you cannot take the bowel prep without vomiting, call yourhealth care provider. To clean out your colon, you may also be given: ?Laxative medicines. ?Instructions about how to use an enema. General instructions Ask your health care provider about: ?Changing or stopping your regular medicines or supplements. This is especially important if you are taking iron supplements, diabetes medicines, or blood thinners. ?Taking medicines such as aspirin and ibuprofen. These medicines can thin your blood. Do not take these medicines before the procedure if your health care provider tells you not to. Plan to have someone take you home from the hospital or clinic. What happens during the procedure? An IV may be inserted into one of your veins. You will be given medicine to help you relax (sedative). To reduce your risk of infection: ?Your health care team will wash or sanitize their hands. ?Your anal area will be washed with soap. You will be asked to lie on your side with your knees bent. Your health care provider will lubricate a long, thin, flexible tube. The tube will have a camera and a light on the end. The tube will be inserted into your anus. The tube will be gently eased through your rectum and colon. Air will be delivered into your colon to keep it open. You may feel some pressure or cramping. The camera will be used to take images during the procedure. A small tissue sample may be removed to be examined under a microscope (biopsy). If small polyps are found, your health care provider may remove them and have them checked for cancer cells. When the exam is done, the tube will be removed. The procedure may vary among health care providers and hospitals. What happens after the procedure? Your blood pressure, heart rate, breathing rate, and blood oxygen level will be monitored until themedicines you were given have worn off. Do not drive for 24 hours after the exam. You may have a small amount of blood in your stool. You may pass gas and have mild abdominal cramping or bloating due to the air that was used to inflate your colon during the exam. It is up to you to get the results of your procedure. Ask your health care provider, or the department performing the procedure, when your results will be ready. Summary A colonoscopy is an exam to look at the entire large intestine. During a colonoscopy, a lubricated, flexible tube with a camera on the end of it is inserted into the anus and then passed into the colon and other parts of the large intestine. Follow instructions from your health care provider about eating and drinking before the procedure. If you were prescribed an oral bowel prep to clean out your colon, take it as told by your health care provider. After your procedure, your blood pressure, heart rate, breathing rate, and blood oxygen level will be monitored until the medicines you were given have worn off. This information is not intended to replace advice given to you by your health care provider. Make sure you discuss any questions you have with your health care provider. Document Released: 04/07/2001 Document Revised: 01/31/2018 Document Reviewed: 06/21/2016 [employer] Patient Education 2020 [employer]. Follow Up Care 10/04/2021 15:12:36 With:Jody Ng CNP Address: When:2 to 4 weeks [facility] 06-18-2022 Miscellaneous Notes* Telephone Encounter - Brendon Chatterjee Pss - 10/09/2021 11:44 AM EDT Patient was scheduled and seen * Telephone Encounter - Brendon Chatterjee Pss - 08/23/2021 10:43 AM EDT Called and LVM for patient to call back and schedule with Dr. Nova for glaucoma evaluation. Referral scanned in documented in [facility] encounter[facility]22 Miscellaneous Notes* Telephone Encounter - Bailey Mendoza Adm - 10/08/2021 1:42 PM EDT 10/08/2021 Faxed [facility] paper work to [phone]. Received confirmation of 2 pages received. Emailed copy of form and confirmation to patient. 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 He underwent excision of ventral penile skin in [facility] on 08/23/2021. Path negative. Pt here for follow up. No issues. No pain. Reports no issues urinating. 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 empagliflozin (JARDIANCE) 10 mg tablet Take 10 mg by mouth daily with breakfast. escitalopram oxalate (LEXAPRO) 20 mg tablet Take 20 mg by mouth once daily. fenofibrate nanocrystallized (TRICOR) 145 mg tablet Take 145 mg by mouth once daily. hydroCHLOROthiazide (HYDRODIURIL, ESIDRIX) 25 mg tablet Take 25 mg by mouth once daily. losartan (COZAAR) 50 mg tablet Take 50 mg by mouth once daily. lovastatin 40 mg tablet Take 40 mg by mouth daily at bedtime. montelukast (SINGULAIR) 10 mg tablet Take 10 mg by mouth daily at bedtime. naproxen (NAPROSYN) 500 mg tablet Take 500 mg by mouth twice daily with meals. semaglutide (OZEMPIC) 0.25 mg or 0.5 mg(2 mg/1.5 mL) pen injector Inject 0.25 mg subcutaneously onetime a week. sildenafil (VIAGRA) 100 mg tablet Take 100 mg by mouth as needed. SITagliptin-metFORMIN (JANUMET) 50-1,000 mg per tablet Take 1 tablet by mouth twice daily with meals. testosterone 200 mg pllt by IMPLANTATION route. syringe w-needle,disposab,3 mL (MONOJECT 3CC SYR 49DC5-6/2 MISC) No current facility-administered medications on file prior to visit. ROS: Constitutional: negative Gastrointestinal: negative PHYSICAL EXAM: BP 128/77 (BP Site: Left Arm, BP Position: Sitting, BP Cuff Size: Large Adult) Pulse 71 Ht 175.3 cm (5' 9 ) Wt 124.4 kg (274 lb 4.8 oz) BMI 40.51 kg/m GENERAL: Wnl nutrition, no deformities, healthy appearing ABDOMEN: Soft, nontender, nondistended, no masses. 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 He underwent take down of thesepenile skin adhesions, repeat glans penis biopsy, and ventral penile skin biopsy on 07/13/2021. 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 He underwent excision of ventral penile skin in [facility] on 08/23/2021. Path negative and again reviewed with patient. No evidence of disease on exam today. RTC in 6 months for exam Encouraged ongoing weight loss, local hygiene Jass Vogt MD documented in this encounterMer[facility]05-16-2022 History of Present illness Narrative* Rafaela Nova MD - 2021 1:48 PM EDT Tmax 16, 14 Pachy 561, 544 Past Ocular Surgical/Laser History OD: - OS: - Medication Intolerance/Inefficacy/Barriers - Current Medications HVF 09/06/21 OD: Normal. first OS: shallow superior defect vs. Non-specific. first OCT RNFL/GCA 09/06/21 OD split sup bundle. Possible sl sup thinning. first OS split sup bundle. WNL. first GCA 09/06/21 OD: diffuse thin. first OS: diffuse thin. first Glaucoma suspect -+family hx glaucoma father/ grandfather(non-surgical, no hx blindness) -GCA non-specific -monitor Return 1 year OCT RNFL/dilate Cataract OU -NVS, monitor -patient defers Rx HTNsive retinopathy OU -counseled on BP control -monitor I, Rafaela Nova MD, have confirmed and edited as necessary the relevant ophthalmic history, ROS, and the neuro exam findings as obtained by others. I have seen and examined Fidelshazia Lara. I have discussed the case and the management of this patient's care with the Resident/Fellow, if applicable. I also have reviewed and agree with the assessment and plan as stated above and agree withall of its relevant components. documented in this encounterMercy [facility]05-15-2022 Hospital Discharge instructions Follow Up Care 09/05/2021 12:29:41 With:Juan WELLS Jasmeet L Address: [address] [place] [address], [address] [place] [address]- When:5 to 7 days only if needed [facility] [phone] Evaluation + Plan note Diagnostic Tests Pending * Wound Culture 09/05/21 [facility]05-05-2022 Miscellaneous Notes* Telephone Encounter - Jass Vogt MD - 08/26/2021 12:11 PM EDT Spoke to pt about biopsy path results. Follow up in 3 weeks documented in this encounterMercy [facility] Hospital05-02-2022 Procedure note* Edgar Do MD - 08/23/2021 6:28 PM EDT PROCEDURE REPORT Surgery/Procedure Date: 08/23/2021 Surgeon(s)/Proceduralist(s) and Cableway Operator(s): Edgar Do MD Procedure(s): Excision of penile lesion Anesthesia: local anesthesia UNIVERSAL PROTOCOL / SAFETY CHECKLIST Sign in Communication: Completed Time Out: Team Confirms the Correct Patient, Correct Procedure, Correct Site and Site Marking, Correct Position (if applicable). Procedure Details: With the patient in a comfortable position, the area to be operated upon were cleaned with an antiseptic and surrounded with sterile drapes. Sterile technique was used during the procedure. Lidocaine 1% was infiltrated under the ventral penile lesion. After a suitable delay for analgesia,an elliptical rene was made around the visible flat lesion (total excision 1.6 x 1 cm) and it was excised. Hemostasis was obtained. Simple closure of the skin was achieved with absorbable sutures of 4-0 chromic and 4-0 vicryl. Tegaderm was placed as a dressing. Pre-Op/Pre-Procedure Diagnosis: Ventral penile lesion - CIS on prior biopsy Post-Op/Post-Procedure Diagnosis: Ventral penile lesion - CIS on prior biopsy Estimated Blood Loss: minimal Specimens: Ventral penile lesion Drains: None Complications: None DISPOSITION: The patient was allowed to go home and will follow up as scheduled. Participation in Procedure: I/primary surgeon/proceduralist performed the procedure with assistance. SIGNATURE: Edgar Do MD PATIENT NAME: Fidel Lara DATE: August 23, 2021 TIME: 6:30 PM CONTACT #: [phone] documented in this encounterMercy Health [facility] Hospital05-02-2022 History of Present illness Narrative* Yohannes Byrnes RN - 08/23/2021 4:56 PM EDT UNIVERSAL PROTOCOL / SAFETY CHECKLIST Procedure to be Performed: penile lesion excision Sign In: A Moment of CARE was completed. Personnel directly involved with the procedure wore the appropriate PPE (Personal Protective Equipment). No special equipment needed. Patient/Surrogate Stated/Verified: PATIENT VERIFIED(optional for EMERGENT procedures): Patient name, Date of , Relevant allergies and The intended procedure Time Out Communication: Intended patient and procedure match the source documents. Consent documented and matches the intended procedure. No relevant labs, photos, and/or imaging studies were applicable for review. No correct side/site applicable for marking and visibility. Medications required for procedure verified. Fire risk assessed and interventions discussed. No implant(s) inserted. Sign Out: SIGN OUT (optional for EMERGENT procedures): All specimen containers correctly labeled. All instruments, equipment, possible retained foreign bodies accounted for. Post-procedure follow-up management communicated and Plan of Care Visit completed when applicable. Yohannes Byrnes RN documented in this encounterMercy [facility] Hospital05-02-2022 Nurse Note* Yohannes Byrnes RN - 08/23/2021 3:51 PM EDT Actual procedure/procedure scheduled: Yes Performing provider/scheduled provider: Yes Patient was roomed in: Q9- 09 Patient arrived in the room at: 1553 Patient ready for procedure: 1600 The procedure started at ( Time Only): 1619 The procedure ended at: 1640 Was the procedure delayed: No The patient left the procedure room at: 1645 Yohannes Byrnes RN PRE penile lesion excision NURSE ASSESSMENT Latex Allergy: No Heart valve replacement: No Joint replacement: No Pre-Procedure Vital Signs: BP 139/76 P 86 Last Menstrual Period: No LMP for male patient. Patient currently : n/a Anticoagulant Taken: No Alcohol Taken: no Mentation: awake, oriented Vital Signs: O2 Sat - N/A Back Office UA obtained: not applicable Yohannes Byrnes RN PROCEDURE PREP Patient I.D. with two(2) identifiers verified by: Yohannes Byrnes RN Pre-Procedure Medication: None IV Started: not applicable Electrosurgical Unit: Yes: Unit # [id number], Pad # [id number], Pad location left thigh , Site condition clear Local Anesthetic: Administered by MD - see Procedure Physician Note. Yohannes Byrnes RN UNIVERSAL PROTOCOL / SAFETY CHECKLIST Procedure to be performed: Excise penile Lesion Sign in Communication: Completed Time Out: Team Confirms the Correct Patient, Correct Procedure, Correct Site and Site Marking, Correct Position (if applicable) Sign Out Discussion: Completed Yohannes Byrnes RN POST Penile lesion NURSE ASSESSMENT Present along with physician during procedure exam. Yohannes Byrnes RN Condition Post Procedure: satisfactory Level of consciousness: awake, oriented DISCHARGE CRITERIA: Current pain intensity is 0 on a 0-10 pain scale.. Condition of Surgical Site: WNL Dressings: yes, tegaderm Bovie Site: yes, penile Skin Condition: reddened Level of consciousness on discharge: awake, oriented Patient in the company of Self Patient discharged via: ambulatory DISCHARGE: Written Instructions provided and verbal Instructions provided: Yes Patient/family acknowledges understanding of instructions:Yes Home going Prescriptions given: No Discharge Time: 164 Yohannes Byrnes RN PATIENT EDUCATION The following was evaluated; Motivation to Learn: Interested Family/Significant Other Support: None - Unavailable/disinterested Cognitive Ability: Alert/Oriented Method of Instruction: Individual instruction Written instruction - handouts Verbal instruction The Following Influencing Factors Were Barriers To This Education Session: None The Following Physical Limitations Were Barriers To This Education Session: None Instruction Provided To: Patient Sulphate Tester Present: not applicable Discipline: Nursing Learning Topic: Survival Skills- Symptom Management Patient Evaluation: Verbalizes understanding: Yes Supplemental Material Given: Written Material Instructed By Yohannes Byrnes RN In Department Urology. documented in this encounterMercy [facility] Hospital04-21-2022 Miscellaneous Notes* Telephone Encounter - Bailey Mendoza Adm - 08/12/2021 2:39 PM EDT [facility] paperwork faxed to [phone] 07/16/2021 4:59 pm. Received confirmation of 5 pages received documented in this encounterMercy Health West Hospital03-28-2022 Miscellaneous Notes* Telephone Encounter - Edgar Do MD - 07/19/2021 6:27 PM EDT I phoned patient with pathology results from recent surgical procedure. The excisional biopsy and skin just proximal to the glans at the site of his previous excision was negative for malignancy. 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 This lesion was not fully excised at the time of surgery. Therefore I recommend thatthe patient return for complete excision of the lesion, and I believe that we can do this in the [facility] area with local anesthesia and he is okay with this. We will make the arrangements. Edgar Do MD documented in this encounterMercy Health West HospitalEvaluation + Plan note Future Appointments Appointment Date:12/08/2021 01:50:00 PM Scheduled Provider: Location:[facility] Appointment Type:Surgery FT [facility] Evaluation + Plan note Future Appointments Appointment Date:03/15/2022 03:30:00 PM Scheduled Provider:ALEAH DUNCAN PA-C Location:[facility] Katie Appointment Type:URO Office Visit [facility] Evaluation + Plan note Future Appointments Appointment Date:05/30/2022 08:45:00 AM Scheduled Provider:Est[facility]ARO [facility] Office Visit [facility]i Evaluation + Plan [facility] Katie Evaluation + Plan note Future Appointments Appointment Date:10/16/2023 01:15:00 PM Scheduled Provider: Location:.[facility] [place] Appointment Type:PT Eval () [facility]* Diagnosis Screening for genitourinary condition Screening for other and unspecified genitourinary condition [facility] Diagnosis Penile intraepithelial neoplasia- Primary Neoplasm of unspecified nature of other genitourinary organs Penile lesion Other specified disorder of penis Morbid obesity with BMI of 40.0-44.9, adult (HCC) Morbid obesity [facility]* Diagnosis Glaucoma suspect of both eyes- Primary Preglaucoma, unspecified [facility]* Diagnosis Penile lesion Other specified disorder of penis [facility] Diagnosis Screening for genitourinary condition Screening for other and unspecified genitourinary condition [facility]* Diagnosis Penile intraepithelial neoplasia- Primary Neoplasm of unspecified nature of other genitourinary organs Penile lesion Other specified disorder of penis [facility]* Diagnosis Penile lesion- Primary Other specified disorder of penis Penile intraepithelial neoplasia Neoplasm of unspecified nature of other genitourinary organs Hidden penis [facility]* Diagnosis Screening for genitourinary condition Screening for other and unspecified genitourinary condition [facility]* 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 [facility]* Diagnosis Glaucoma suspect of both eyes- Primary Preglaucoma, unspecified [facility]* Diagnosis Penile lesion- Primary Other specified disorder of penis 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 [facility]* Diagnosis Screening for genitourinary condition Screening for other and unspecified genitourinary condition [facility]* 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 History of penile cancer Personal history of malignant neoplasm of other male genital organs documented in this encounter [facility] note* Diagnosis Screening for genitourinary condition Screening for other and unspecified genitourinary condition documented in this encounter [facility] note* Diagnosis Pre-op evaluation- Primary Preoperative examination, unspecified Penile intraepithelial neoplasia Neoplasm of unspecified nature of other genitourinary organs Hypercholesterolemia Pure hypercholesterolemia Secondary hypertension Other secondary hypertension, unspecified Type 2 diabetes mellitus without complication, without long-term current use of insulin (HCC) 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 (HCC) Secondary malignant neoplasm of genital organs Morbid obesity with BMI of 40.0-44.9, adult (HCC) Morbid obesity History of penile cancer- Primary Personal history of malignant neoplasm of other male genital organs documented in this encounter [facility] note* Diagnosis Pre-op evaluation- Primary Preoperative examination, unspecified Penile intraepithelial neoplasia Neoplasm of unspecified nature of other genitourinary organs Hypercholesterolemia Pure hypercholesterolemia Secondary hypertension Other secondary hypertension, unspecified Type 2 diabetes mellitus without complication, without long-term current use of insulin (HCC) 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 (HCC) Secondary malignant neoplasm of genital organs Morbid obesity with BMI of 40.0-44.9, adult (HCC) Morbid obesity Screening for genitourinary condition Screening for other and unspecified genitourinary condition documented in this encounter [facility] note* Diagnosis MILLY (obstructive sleep apnea)- Primary Obstructive sleep apnea (adult) (pediatric) Daytime hypersomnolence Snoring Other dyspnea and respiratory abnormality [facility]* Diagnosis Daytime hypersomnolence- Primary documented in this encounter [facility] HealthcareEvaluation noteNo assessment information availableVan Wert [facility] Work Phone: Evaluation note* Diagnosis Daytime hypersomnolence- Primary [facility] Narrative No data available for this section [facility] Discharge instructions No data available for this section [facility] No data available for this section [facility] Reason for referral (narrative) , [facility] Referred by: ENDER VELEZ, Estrella Lim [facility] Katie Medications Administered Section Inactive Administered Medications - up to 3 most recent administrations Medication Order MAR Action Action Date Dose Rate Site cephALEXin 500 mg cap(s) (KEFLEX) 500 mg, ORAL, ONCE, 1 dose, On Mon08/23/21 at 1600, Please document the antimicrobial indication: Empiric Given 08/23/2021 4:43 PM EDT 500 mg Inactive Administered Medications - up to 3 most recent administrations Medication Order MAR Action Action Date Dose Rate Site fluorescein-benoxinate 0.25-0.4 % 1 Drop (FLURESS) 1 Drop, BOTH EYES, DIRECTED, Starting on Mon09/14/22 at 1300, Until Virginie 09/15/22 at 0059, Administer for applanation tonometry. In the event of a Fluress shortage, administer Dionne-Fluor 1 drop into both eyes as directed for applanation tonometry Given 09/14/2022 1:00 PM EDT 1 Drop PHENYLephrine 2.5 % 1 Drop (AK-DILATE, JJ-SYNEPHRINE) 1 Drop, BOTH EYES, DIRECTED, Starting on Mon09/14/22 at 1300, Until Virginie 09/15/22 at 0059, Administer for dilation PROTECT FROM LIGHT Given 09/14/2022 1:00 PM EDT 1 Drop tropicamide 1 % 1 Drop (MYDRIACYL) 1 Drop, BOTH EYES, DIRECTED, Starting on Mon09/14/22 at 1300, Until Virginie 09/15/22 at 0059, Administer for dilation Given 09/14/2022 1:00 PM EDT 1 Drop Summary Purpose Family History No Family History Records Found No data available for this section No Family History Records FoundNo Family History Records FoundNo Family History Records Found Advance Directives Advance Directive Response Recorded Date/ Time Advance Directives No May 3:17pm Chief Complaint and Reason for Visit Chief Complaint Admit Date cough, stuffy, heavy lungs May 3:22pm Additional Source Comments Source Comments (unrecognize d section and content) In the event this informatio n is protected by the Federal Confidentiality of Alcohol and Drug Abuse Patient Records regulations: The Federal rules restrict any use of the information to criminally investigate or prosecute any alcohol or drug abuse patient.[facility] the event this information is protected by the Federal Confidentiality of Alcohol and Drug Abuse Patient Records regulations: The Federal rules restrict any use of the information to criminally investigate or prosecute any alcohol or drug abuse patient.[facility] HospitalIn the event this information is protected by the Federal Confidentiality of Alcohol and Drug Abuse Patient Records regulations: The Federal rules restrict any use of the information to criminally investigate or prosecute any alcohol or drug abuse patient.[facility] HospitalIn the event this information is protected by the Federal Confidentiality of Alcohol and Drug Abuse Patient Records regulations: The Federal rules restrict any use of the information to criminally investigate or prosecute any alcohol or drug abuse patient.[facility]In the event this information is protected by the Federal Confidentiality of Alcohol and Drug Abuse Patient Records regulations: The Federal rules restrict any use of the information to criminally investigate or prosecute any alcohol or drug abuse patient.[facility] HospitalIn the event this information is protected by the Federal Confidentiality of Alcohol and Drug Abuse Patient Records regulations: The Federal rules restrict any use of the information to criminally investigate or prosecute any alcohol or drug abuse patient.[facility] HospitalIn the event this information is protected by the Federal Confidentiality of Alcohol and Drug Abuse Patient Records regulations: The Federal rules restrict any use of the information to criminally investigate or prosecute any alcohol or drug abuse patient.[facility] HospitalIn the event this information is protected by the Federal Confidentiality of Alcohol and Drug Abuse Patient Records regulations: The Federal rules restrict any use of the information to criminally investigate or prosecute any alcohol or drug abuse patient.[facility] HospitalIn the event this information is protected by the Federal Confidentiality of Alcohol and Drug Abuse Patient Records regulations: The Federal rules restrict any use of the information to criminally investigate or prosecute any alcohol or drug abuse patient.[facility] HospitalIn the event this information is protected by the Federal Confidentiality of Alcohol and Drug Abuse Patient Records regulations: The Federal rules restrict any use of the information to criminally investigate or prosecute any alcohol or drug abuse patient.[facility] HospitalIn the event this information is protected by the Federal Confidentiality of Alcohol and Drug Abuse Patient Records regulations: The Federal rules restrict any use of the information to criminally investigate or prosecute any alcohol or drug abuse patient.[facility] HospitalIn the event this information is protected by the Federal Confidentiality of Alcohol and Drug Abuse Patient Records regulations: The Federal rules restrict any use of the information to criminally investigate or prosecute any alcohol or drug abuse patient.[facility] HospitalIn the event this information is protected by the Federal Confidentiality of Alcohol and Drug Abuse Patient Records regulations: The Federal rules restrict any use of the information to criminally investigate or prosecute any alcohol or drug abuse patient.[facility] HospitalIn the event this information is protected by the Federal Confidentiality of Alcohol and Drug Abuse Patient Records regulations: The Federal rules restrict any use of the information to criminally investigate or prosecute any alcohol or drug abuse patient.[facility] HospitalIn the event this information is protected by the Federal Confidentiality of Alcohol and Drug Abuse Patient Records regulations: The Federal rules restrict any use of the information to criminally investigate or prosecute any alcohol or drug abuse patient.[facility] HospitalIn the event this information is protected by the Federal Confidentiality of Alcohol and Drug Abuse Patient Records regulations: The Federal rules restrict any use of the information to criminally investigate or prosecute any alcohol or drug abuse patient.[facility] HospitalIn the event this information is protected by the Federal Confidentiality of Alcohol and Drug Abuse Patient Records regulations: The Federal rules restrict any use of the information to criminally investigate or prosecute any alcohol or drug abuse patient.[facility] HospitalIn the event this information is protected by the Federal Confidentiality of Alcohol and Drug Abuse Patient Records regulations: The Federal rules restrict any use of the information to criminally investigate or prosecute any alcohol or drug abuse patient.[facility] HospitalIn the event this information is protected by the Federal Confidentiality of Alcohol and Drug Abuse Patient Records regulations: The Federal rules restrict any use of the information to criminally investigate or prosecute any alcohol or drug abuse patient.[facility] HospitalIn the event this information is protected by the Federal Confidentiality of Alcohol and Drug Abuse Patient Records regulations: The Federal rules restrict any use of the information to criminally investigate or prosecute any alcohol or drug abuse patient.[facility] HospitalIn the event this information is protected by the Federal Confidentiality of Alcohol and Drug Abuse Patient Records regulations: The Federal rules restrict any use of the information to criminally investigate or prosecute any alcohol or drug abuse patient.[facility] HospitalIn the event this information is protected by the Federal Confidentiality of Alcohol and Drug Abuse Patient Records regulations: The Federal rules restrict any use of the information to criminally investigate or prosecute any alcohol or drug abuse patient.[facility] HospitalIn the event this information is protected by the Federal Confidentiality of Alcohol and Drug Abuse Patient Records regulations: The Federal rules restrict any use of the information to criminally investigate or prosecute any alcohol or drug abuse patient.[facility] Reason for Visit (unrecogniz ed section and content) Reason Comments Results Reason Comments FMLA Paperwork Reason Comments excision for penile lesion Specialty Diagnoses / Procedures Referred By Elida t Referred To Contact Urology / UROLOGY Diagnoses Penile intraepithelial neoplasia Excision Penile Lesion/ Office Procedures CYSTOURETHROSCOPY CYSTOSCOPY Edgar Do MD [address] [place] [address] Edgar Do MD [address] [place] [address] Referral ID Status Reason Start Date Expiration Date Visits Re quested Visits Authorized [id number] Closed 08/23/2021 09/22/2021 1 1 Reason Comments Patient Update Reason Comments Glaucoma Evaluation Specialty Diagnoses / Procedures Referred By Elida t Referred To Contact Ophthalmology / OPHTHALMOLOGY Diagnoses Follow-up exam Glaucoma evaluation Procedures OFFICE/OUTPATIENT NEW MODERATE MDM 45-59 MINUTES NEW EXAM SPECIAL REQ Caroline Mars [address] [place] [address] Rafaela Nova MD [address] [place] [address] Referral ID Status Reason Start Date Expiration Date Visits Re quested Visits Authorized [id number] Closed 2021 04/23/2022 1 1 Reason Comments Post Op Post-Op Visit Specialty Diagnoses / Procedures Referred By Elida t Referred To Contact Diagnoses Penile lesion Procedures REFER TO PACC - PRE ANESTHESIA CONSULTATION CLINIC OFFICE/OUTPATIENT NEW HIGH MDM 60-74 MINUTES Edgar Do MD [address] [place] [address] Referral ID Status Reason Start Date Expiration Date V isits Requested Visits Authorized [id number] Closed PCP Requested Referral 06/07/2021 06/07/2022 1 1 Reason Comments Appointment Reason Comments Follow Up Specialty Diagnoses / Procedures Referred By Elida t Referred To Contact Urology / UROLOGY Diagnoses 6 mo f/u Penile lesion per cc chart Procedures OFFICE/OUTPATIENT ESTABLISHED MOD MDM 30-39 MIN EST UROL Jass Vogt MD [address] [place] [address] Edgar Do MD [address] [place] [address] Referral ID Status Reason Start Date Expiration Date Visits Re quested Visits Authorized [id number] Closed 03/23/2022 04/23/2022 1 1 Specialty Diagnoses / Procedures Referred By Contac t Referred To Contact Urology / UROLOGY Diagnoses Penile cancer (HCC) penile cancer, lesion of the penis 06/02 records scanned into Epic / Procedures OFFICE/OUTPATIENT ESTABLISHED MOD MDM 30-39 MIN EST UROL Self Edgar Do MD [address] [place] [address] Referral ID Status Reason Start Date Expiration Date Visits Re quested Visits Authorized [id number] Closed 07/11/2022 10/09/2022 1 0 Reason Comments Office Procedure Penile Excision Specialty Diagnoses / Procedures Referred By Contac t Referred To Contact Urology / UROLOGY Diagnoses Penile lesion Penile intraepithelial neoplasia Hidden penis Incision of Penile Lesion / Per Office Penile lesion Penile intraepithelial neoplasia Hidden penis Procedures CYSTOURETHROSCOPY CYSTOSCOPY Edgar Do MD [address] [place] [address] Edgar Do MD [address] [place] [address] Referral ID Status Reason Start Date Expiration Date Visits Re quested Visits Authorized [id number] Closed 08/15/2022 04/23/2023 1 1 Reason Comments Glaucoma Suspect Follow Up Specialty Diagnoses / Procedures Referred By Contac t Referred To Contact Ophthalmology / OPHTHALMOLOGY Diagnoses Annual physical exam annual Procedures OFFICE/OUTPATIENT ESTABLISHED MOD MDM 30-39 MIN EST ADULT Rafaela Nova MD [address] [place] [address] Rafaela Nova MD [address] [facility] [place] [address] Referral ID Status Reason Start Date Expiration Date Visits Re quested Visits Authorized [id number] Closed 09/14/2022 04/23/2023 1 1 Specialty Diagnoses / Procedures Referred By Elida t Referred To Contact Urology / UROLOGY Diagnoses Other inflammatory disorders of penis The bump on my penis has came back. Procedures OFFICE/OUTPATIENT ESTABLISHED MOD MDM 30-39 MIN MYC SPECIALIST OFFICE VISIT Self Edgar Do MD [address] [place] [address] Referral ID Status Reason Start Date Expiration Date Visits Re quested Visits Authorized [id number] Closed 11/30/2022 04/23/2023 1 1 Specialty Diagnoses / Procedures Referred By Elida t Referred To Contact Urology / UROLOGY Diagnoses Lichen sclerosus of penis Follow-up examination 6 mo fu Lichen sclerosus of penis per cc chart Procedures OFFICE/OUTPATIENT ESTABLISHED MOD MDM 30 MIN EST UROL Edgar Do MD [address] [place] [address] Edgar Do MD [address] [place] [address] Referral ID Status Reason Start Date Expiration Date V isits Requested Visits Authorized [id number] Closed OON/Self Pay Override 07/12/2023 04/23/2024 1 1 Specialty Diagnoses / Procedures Referred By Elida hernandez Referred To Contact Urology / UROLOGY Diagnoses Penile lesion Follow-up examination 6 month f/u for penile lesion per checkout penile lesion Procedures OFFICE/OUTPATIENT ESTABLISHED MOD MDM 30 MIN EST UROL Jourdan Frias, HUA.CORPORATE INVESTIGATOR [address] [place] [address] Jourdan Frias APRN.CORPORATE INVESTIGATOR [address] [place] [address] Referral ID Status Reason Start Date Expiration Date Visits Re quested Visits Authorized [id number] Closed 01/17/2024 04/23/2024 1 1 Reason Comments Sleep Apnea Care Teams (unrecognized sec tion and content) Assistant Center Manager Relationship Specialty Start Date End Date [place] [address] PCP - General Family Practice 06/15/21 Estrella Amaro [address] [place] [address] Urology 06/02/21 Assistant Center Manager Relationship Specialty Start Date End Date [place]as[place] [address] PCP - General Family Practice 06/15/21 Estrella Amaro [address] [place] [address] Urology 06/02/21 Assistant Center Manager Relationship Specialty Start Date End Date [place]asmeet [place] [address] PCP - General Family Practice 06/15/21 Estrella Amaro [address] [place] [address] Urology 06/02/21 Assistant Center Manager Relationship Specialty Start Date End Date [place]asmeet [place] [address] PCP - General Family Practice 06/15/21 Estrella Amaro [address] [place] [address] Urology 06/02/21 Assistant Center Manager Relationship Specialty Start Date End Date Jasmeet Martinez [address] [place] [address] PCP - General Family Practice 06/15/21 Estrella Amaro P [address] [place] [address] Urology 06/02/21 Assistant Center Manager Relationship Specialty Start Date End Date Jasmeet Martinez [address] [place] [address] PCP - General Family Practice 06/15/21 Estrella Amaro P [address] [place] [phone] Urology 06/02/21 Assistant Center Manager Relationship Specialty Start Date End [place] [phone] PCP - General Family Practice 06/15/21 Estrella Amaro P [address] [place] [phone] Urology 06/02/21 Assistant Center Manager Relationship Specialty Start Date End Date Jasmeet Martinez [address] [place] [place] [address] PCP - General Family Medicine 06/15/21 Estrella Amaro P [address] [place] [address] Urology 06/02/21 Assistant Center Manager Relationship Specialty Start Date End Date Jasmeet Martinez [address] [place] [address] PCP - General Family Medicine 06/15/21 Estrella Amaro [address] [place] [phone] Urology 06/02/21 Assistant Center Manager Relationship Specialty Start Date End Date Jasmeet Martinez [address] [place] [address] PCP - General Family Medicine 06/15/21 Estrella Amaro [address] [place] [address] Urology 06/02/21 Assistant Center Manager Relationship Specialty Start Date End Date Jasmeet Martinez [address] [place] [address] PCP - General Family Medicine 06/15/21 Estrella Amaro [address] [place] [phone] Urology 06/02/21 Assistant Center Manager Relationship Specialty Start Date End Date Jasmeet Martinez [address] [place] [address] PCP - General Family Medicine 06/15/21 Estrella Amaro Urology 06/02/21 Assistant Center Manager Relationship Specialty Start Date End Date Layton Martinezasuncion Parsons [address] [place] [address] PCP - General Family Medicine 06/15/21 Estrella Amaro Urology 06/02/21 Assistant Center Manager Relationship Specialty Start Date End Date Martinez Jasmeet Parsons [address] [place] [address] PCP - General Family Medicine 06/15/21 Estrella Amaro Urology 06/02/21 Assistant Center Manager Relationship Specialty Start Date End Date Jasmeet Martinez Jaqueline [address] [place] [phone] PCP - General Family Medicine 06/15/21 Estrella Amaro Urology 06/02/21 Assistant Center Manager Relationship Specialty Start Date End Date Leticia Martinezecasuncion Parsons [address] [place] [phone] PCP - General Family Medicine 06/15/21 Estrella Amaro Urology 06/02/21 Assistant Center Manager Relationship Specialty Start Date End Date Jasmeet Martinez [address] [place] [phone] PCP - General Family Medicine 06/15/21 Estrella Amaro MD Urology 06/02/21 Assistant Center Manager Relationship Specialty Start Date End Date Jasmeet Martinez [address] [place] [phone] PCP - General Family Medicine 06/15/21 Estrella Amaro MD Urology 06/02/21 Assistant Center Manager Relationship Specialty Start Date End Date Jasmeet Martinez NP [address] [place] [address] Referring Physician Family Medicine 01/24/24 Assistant Center Manager Relationship Specialty Start Date End Date Jasmeet Martinez NP [address] [place] [address] Referring Physician Family Medicine 01/24/24 Assistant Center Manager Relationship Specialty Start Date End Date Jasmeet Martinez NP [address] [place] [phone] Referring Physician Family Medicine 01/24/24 Team Status: Active Member Role Status Dates Neris De La Rosa DO Primary Care Provider Active Team Status: Inactive Member Role Status Dates Yana Moffett APRN Attending Provider Active S tart: June 19, 2024 End: June 19, 2024 Neris De La Rosa DO Primary Care Provider Active S tart: June 19, 2024 End: June 19, 2024 Assistant Center Manager Relationship Specialty Start Date End Date Jasmeet Martinez NP [address] [place] [phone] Referring Physician Family Medicine 01/24/24 (unrecognized sect ion and content) No Status Records FoundNo Status Records FoundNo Status Records FoundNo Status Records Found INFORMATION SOURCE (unrecogn ized section and content) DATE CREATED AUTHOR 07/29/2022 [facility] DATE CREATED AUTHOR AUTHOR'S ORGANIZ ATION 01/22/2024 [facility] DATE CREATED AUTHOR AUTHOR'S ORGANIZ ATION 01/26/2024 [facility] EPIC DATE CREATED AUTHOR AUTHOR'S OLAYINKA PATEL 01/30/2024 [facility] Goals (unrecognized section and content) Goals may be documented in a n alternate section FOR RECORDS PERTAINING TO PATIENTS WHO ARE OR HAVE BEEN ENROLLED IN A CHEMICAL DEPENDENCY/SUBSTANCEABUSE PROGRAM, SOME INFORMATION MAY BE OMITTED. This clinical summary was aggregated from multiple sources. Caution should be exercised in using it in the provision of clinical care. This summary normalizes information from multiple sources, and as a consequence, information in this document may materially change the coding, format and clinical context of patient data. In addition, data may be omitted in some cases. CLINICAL DECISIONS SHOULD BE BASED ON THE PRIMARY CLINICAL RECORDS. [facility] [employer] provides no warranty or guarantee of the accuracy or completeness of information in this document.
--- OUTSIDE RECORDS SUMMARY | 2024-10-05 09:13 | XMS_ITS | Encounter Summary ---
Author Organization [facility] Address [facility] [id number] Care Team Providers Care Bench Shear Operator Name Role Phone Ron Amaro MD Unavailable [phone] Glo Martinez CNP Primary Care Provider [phone] Source Comments In the event this information is protected by the Federal Confidentiality of Alcohol and Drug AbusePatient Records regulations: The Federal rules restrict any use of the information to criminally investigate or prosecute any alcohol or drug abuse patient.[facility] Encounter Details Date Type Department Care Team (Late st Contact Info) Description 06/08/2021 Patient Msg [facility] [address] [place], [place] [phone] Provider, [facility] Scheduling Information Social History Tobacco Use Types Packs/Day Years Used Date Smoking Tobacco: Never Smokeless Tobacco: Never Alcohol Use Standard Drinks/Week Comments Not Currently 0 (1 standard drink = 0.6 oz pur e alcohol) Sex and Gender Information Value Date Recorded Sex Assigned at Male 07/04/2021 2:44 PM EDT Legal Sex Male 9:49 AM EST Gender Identity Male 06/07/2021 5:24 PM EST Sexual Orientation Not on file COVID-19 Exposure Response Date Recorded In the last month, have you been in contact with someone who was confirmed or suspected to have Coronavirus / COVID-19? No / Unsure 05/31/2021 8:50 AM EST documented as of this encounter Plan of Treatment Upcoming Encounters Date Type Department Care Team (Late st Contact Info) Description 01/16/2025 10:40 AM EDT Office Visit Urology [address] [address] Katrina Frias P, ACADEMIC ADVISER.[address] [address] History of Penile Cancer documented as of this encounter Visit Diagnoses Not on filedocumented in this encounter Care Teams Bench Shear Operator Relationship Specialty Start Date End Date Glo Martinez CNP [address] [place] [phone] PCP - General Family Medicine 06/15/21 Ron Amaro MD Urology 06/02/21 documented as of this encounter
[2024-10-09 11:08] LABS: Free Testosterone(Direct) 12.2 pg/mL (7.2-24.0); Testosterone 565 ng/dL (264-916)
== END 2024-10-05 09:09 | disposition home or self-care (01) ==
DX: E29.1 Testicular hypofunction (principal)
CPT/HCPCS: 36415; 84402; 84403

== ENCOUNTER 2025-02-19 15:22 | Outpatient (OUT) | payer OTHER, BC, SELFPAY ==
--- OUTSIDE RECORDS SUMMARY | 2025-02-19 15:26 | XMS_ITS | Clinical Summary ---
Author Organization [facility] Address [address] [place] [address] Care Team Providers Care Electronics Inspector Name Role Phone Glo Martinez CASING SOAKER Unavailable Allergies Active AllergyReactionsCriticalityNoted DateCommentsAspirinSwelling,Unknown 05/31/2021IbuprofenSwelling,Octlggz6705/31/2021 Medications MedicationSigDispense QuantityRefillsLast FilledStart DateEnd DateStatus empagliflozin (Jardiance) 10 MG Take 10 mg by mouth in the morning. Take with meals.Active emtricitabine-tenofovir DF (Truvada) 200-300 MG tablet 04/19/2023ctive escitalopram (Lexapro) 20 MG tablet 1 (one) time each day at the same timeActive fenofibrate (Tricor) 145 MG tablet Take 145 mg by mouth DailyActive True Metrix Blood Glucose Test test strip USE DIRECTED TO CHECK BLOOD SUGAR DAILY09/01/2023ctive hydroCHLOROthiazide (HYDRODiuril) 25 MG tablet 1 (one) time each day at the same timeActive TRUEplus Lancets 28G misc USE ONCE DAILY09/01/2023ctive losartan (Cozaar) 50 MG tablet 1 (one) time each day at the same timeActive lovastatin (Mevacor) 20 MG tablet 07/26/2023ctive montelukast (Singulair) 10 MG tablet 1 (one) time each day at the same timeActive Ozempic, 1 MG/DOSE, 4 MG/3ML solution pen-injector 07/26/2023ctive sildenafil (Viagra) 100 MG tablet TAKE 1 TABLET BY MOUTH 30 TO 60 MINUTES PRIOR TO DESIRED INTIMACYActive Janumet 50-1000 MG tablet Take 1 tablet by mouth in the morning and 1 tablet in the evening. Take with meals.Active sulfamethoxazole-trimethoprim (Bactrim DS) 800-160 MG per tablet Take 1 tablet by mouth in the morning and 1 tablet before bedtime.Active testosterone cypionate (Depo-Testosterone) 200 MG/ML injection INJECT 1 ML ONCE A WEEK09/01/2023ctive predniSONE (Deltasone) 20 MG tablet Indications:Pharyngitis, unspecified etiology,Non-recurrent acute serous otitis media of both ears3 pills days 1 and 2, 2 pills days 3 and 4, 1 pill day 5 and 6, 1/2 pill days 7 and 8. 13 tablet 4Active modafinil (Provigil) 200 MG tablet Indications:Daytime hypersomnolenceTake 1 tablet (200 mg) by mouth in the morning. 30 tablet 4Active methylphenidate (Ritalin) 5 MG tablet Indications:Daytime hypersomnolenceTake 1 tablet (5 mg) by mouth Daily 30 tablet 5Active Social History Tobacco UseTypesPacks/DayYears UsedDateSmoking Tobacco: Unknown Tobacco Cessation:Counseling Given: Not Answered Sex and Gender InformationValueDate RecordedSex Assigned at BirthNot on file Legal TfjTlnp8807/06/2022 6:46 PM EDTGender IdentityNot on fileSexual Orientation Not on file Last Filed Vital Signs Vital SignReadingTime TakenCommentsBlood Fzssulvu120/8410 3:29 PM EDT Iwyvi331301/24/2024 3:29 PM CXXVwvzadrnwhm01.4 ??C (97.5 ??F)09/10/2023 12:00 PM EDTRespiratory Rate--Oxygen Sfxszrjvxr43%09/10/2023 12:00 PM EDTInhaled Oxygen Concentration--Gpoash893 kg (245 lb)01/24/2024 3:29 PM VPEKpzdsh065.3 cm (5' 9 ) 01/24/2024 3:29 PM EDTBody Mass Index36.181 3:29 PM EDT Plan of [place] [phone] Care Teams Team MemberRelationshipSpecialtyStart DateEnd Date Glo Martinez NP [address] [place] [address] [place] [address] Referring PhysicianFami Kbtbbrym30/2/24
--- OUTSIDE RECORDS SUMMARY | 2025-02-19 15:29 | XMS_ITS | CCD ---
Author Organization [facility] Care Team Providers Care Fabrication Engineer Name Role Phone Estrella Amaro Unavailable Jasmeet Martinez Primary Care Provider [phone] Jasmeet Martinez Primary Care Physician [phone] Estrella Amaro Unavailable Jasmeet Martinez Primary Care Provider REQUEST, NONE LISTED Primary Care Unavaila ble ALEAH DUNCAN Admitting Unavailable PERLAALEAH KINCAID Attending Unavailable REQUEST, NONE LISTED Primary Care Unavaila ble PERLA, ALEAH Admitting Unavailable PERLA, ALEAH Attending Unavailable PERLA, ALEAH Consulting Unavailable REQUEST, NONE LISTED Primary Care Unavaila vicente AMARO, DR ESTRELLA Lim Admitting Unavailable PERLAALEAH KINCAID Consulting Unavailable ENDER, DR ESTRELLA Lim Attending Unavailable MISC, DR FOSTER Attending Unavailable MISC, DR FOSTER Consulting Unavailable MISC, DR FOSTER Admitting Unavailable REQUEST, NONE LISTED Primary Care Unavaila Estrella Bynum Unavailable Estrella Amaro MD Unavailable [phone] Jasmeet Martinez Primary Care Provider ANETA KUMAR Attending Unavailable CLARICE CIFUENTES Attending Unavailable Rodney Markham Attending Unavailable Rodney Markham Referring Unavailable Rodney Markham Admitting Unavailable Rodney Markham Attending Unavailable Jasmeet Martinez NP Unavailable Neris De La Rosa DO Primary Care Provider Clarice Cifuentes APRN Attending Provider JOURDAN FRIAS Attending Unavailable SELF Referring Unavailable JASMEET MARTINEZ Primary Care Unavailable Allergies Allergy ClassificationReported Allergen(s)Allergy TypeDate of OnsetReaction(s) Facility (20 sources)Aspirin; Translations: [aspirin]Drug Jpbsahj66-96-6659Iaansmtn, Swelling (morphologic abnormality)[facility] (20 sources)Ibuprofen; Translations: [ibuprofen]Drug Doioknl46-76-5199Slnfozup, Swelling (finding), UnknownCos[facility] (2 sources)AspirinDrug Dgvvjvd87-38-7252[facility] (2 sources)IbuprofenDrug Mzfajcm85-53-7323VaqGuernsey [facility] (5 sources)Aluminum aspirinDrug Fcuwuip17-63-0737Ltvucozy, UnknownNONM Healthcare Medications Current Medications MedicationDrug Class(es)DatesSig (Normalized)Sig (Original)busPIRone hydrochloride 10 mg oral tablet (2 sources)Start: 06-57-6893Pukrtadal 10 mg tablet Active MG PO June 19, 2024 1:00am Complies with drug therapycephalexin 500 mg oral capsule (4 sources)Cephalosporin AntibacterialStart: 08-23-2021 End: 35-07-0441bdzn 1 capsule by mouth three times dailycephALEXin (KEFLEX) 500 mg capsule Take 1 capsule by mouth three times daily for 5 days. 15 capsule0 08/23/2021 08/28/2021 ActiveStart: 07-13-2021 End: 46-93-0469pwpl 1 capsule by mouth three times dailycephALEXin (KEFLEX) 500 mg capsule Take 1 capsule by mouth three times daily for 7 days. 21 capsule0 07/13/2021 07/20/2021 ActiveComment on above:Take 1 capsule by mouth three times daily for 7 days.Take 1 capsule by mouth three times daily for 5 days. clobetasol propionate 0.5 mg/ml topical cream (10 sources)CorticosteroidStart: 03-06-2023 End: 40-12-7074glphjiggmt (TEMOVATE) 0.05 % cream Indications: Lichen sclerosus of penis Apply to affected area two times a day. Use for a week at a time as needed 45 g 3 07/12/2023 ActiveStart: 98-02-9057fmwmtwagbw (TEMOVATE) 0.05 % cream Apply to affected area twice daily. Use for a week at a time as needed 45 g 3 08/15/2022 ActiveComment on above:Apply to affected area twice daily. Use for a week at a time as neededApply to affected area two times a day. Use for a week at a time as neededempagliflozin 10 mg oral tablet (20 sources)Sodium-Glucose Cotransporter 2 InhibitorStart: 05-11-2021 Empagliflozin (Jardiance) 10 mg tablet Active MG PO June 19, 2024 1:00am Complies with drug therapyComment on above:Take 10 mg by mouth daily with breakfast.Emtricitabine-Tenofovir (Tdf) 200-300 mg tablet (1 source)Start: 47-11-7703Ppbalugiygsdh-Tenofovir (Tdf) 200-300 mg tablet Active TAB PO June 19, 2024 12:00amescitalopram 20 mg oral tablet (20 sources)Serotonin Reuptake InhibitorStart: 94-66-9493Ynybfdijedgj Oxalate 20 mg tablet Active MG PO June 19, 2024 1:00am Complies with drug therapy Comment on above:Take 20 mg by mouth once daily.fenofibrate 145 mg oral tablet (20 sources)Peroxisome Proliferator Receptor alpha AgonistStart: 05-11-2021 Fenofibrate Nanocrystallized 145 mg tablet Active MG PO June 19, 2024 1:00am Complies with drug therapyComment on above:Take 145 mg by mouth once daily.Fenofibrate Nanocrystallized 145 mg tablet (1 source)Start: 72-76-0822Aftxldrctjf Nanocrystallized 145 mg tablet Active MG PO June 19, 2024 12:00amfexofenadine hydrochloride 180 mg oral tablet (20 sources)Histamine-1 Receptor AntagonistStart: 15-95-0351jjnc 1 tablet by mouth once dailyFexofenadine (Allergy Relief (Fexofenadine)) 180 mg tablet Active 180 MG PO Daily November 27, 2024 12:00am Complies with drug therapyStart: 90-45-2094drthordsaxlk (VERONICA) 180 mg tablet Take 180 mg by mouth. 05/11/2021 ActiveComment on above:Take 180 mg by mouth.hydroCHLOROthiazide 25 mg oral tablet (20 sources)Thiazide DiureticStart: 33-02-1607Wulljhgcyltyvnuzthb 25 mg tablet Active MG PO June 19, 2024 1:00am Complies with drug therapyComment on above:Take 25 mg by mouth once daily.losartan potassium 50 mg oral tablet (20 sources)Angiotensin 2 Receptor BlockerStart: 13-50-1163Tdsvrdhe 50 mg tablet Active MG PO June 19, 2024 1:00am Complies with drug therapyComment on above:Take 50 mg by mouth once daily.lovastatin 40 mg oral tablet (20 sources)HMG-CoA Reductase InhibitorStart: 50-35-8424ublm 1 tablet by mouth three times dailyLovastatin 40 mg tablet Active 40 MG PO Three times daily November 27, 2024 12:00am Complies with drug therapyStart: 07-26-2023 End: 94-02-3607Elwmtoxgjy 20 mg tablet Discontinued MG PO June 19, 2024 1:00am November 27, 2024 11:53amStart: 74-83-2965egjc 1 tablet by mouth once dailylovastatin 40 mg Tab 40 mg = 1 tab(s), Oral, Daily, Refills(s) 0, High cholesterol Start Date: 05/11/21 Status: OrderedComment on above:Take 40 mg by mouth daily at bedtime.metFORMIN hydrochloride 1000 mg / SITagliptin 50 mg oral tablet (20 sources)Biguanide, Dipeptidyl Peptidase 4 InhibitorStart: 06-19-2024 Sitagliptin Phos-Metformin (Janumet) 50-1,000 mg tablet Active TAB PO June 19, 2024 1:00am Complies with drug therapyStart: 29-04-3380stbo 1 tablet by mouth twice dailyJanumet XR 50 mg-1000 mg oral tablet, extended release 1 tab(s), Oral, BID, Refill(s) 0, Blood glucose Start Date: 05/11/21 Status: OrderedStart: 26-61-8000cjti 1 tablet by mouth twice dailyJanumet XR 50 mg-1000 mg oral tablet, extended release 1 tab(s), Oral, BID, Refill(s) 0, Blood glucose Start Date: 05/11/21 Status: OrderedComment on above:Take 1 tablet by mouth twice daily with meals.methylphenidate hydrochloride 5 mg oral tablet (4 sources)Central Nervous System StimulantStart: 11-27-2024 End: 76-78-9534akyv 1 tablet by mouth once dailyMethylphenidate Hcl 5 mg tablet Active 5 MG PO Daily 30 30 [place] 6th, 2025 Complies with drug therapyStart: 08-09-2024 End: 67-01-0393cglz 1 tablet by mouth once dailymethylphenidate (Ritalin) 5 MG tablet Indications: Daytime hypersomnolence Take 1 tablet (5 mg) by mouth Daily 30 tablet 09/17/2024 Activemodafinil 200 mg oral tablet (14 sources)Sympathomimetic-like AgentStart: 06-19-2024 End: 72-08-6606ltvy 1 tablet by mouth once daily in the morningModafinil 200 mg tablet Active 200 MG PO Every morning November 27, 2024 4:00pm Refill when due 12/08/2024 Complies with drug therapyStart: 05-28-2023 End: 67-85-4237Vqjhmkrwa 200 mg tablet Active MG PO June 19, 2024 12:00am Start: 57-06-8012bdch 1 tablet by mouth in the morningmodafinil (Provigil) 100 MG tablet Take 100 mg by mouth in the morning. 05/28/2023 ActiveComment on above:Take 1 tablet by mouth once daily.montelukast 10 mg oral tablet (20 sources)Leukotriene Receptor AntagonistStart: 56-47-6599Zyjoknyxfvt 10 mg tablet Active MG PO June 19, 2024 1:00am Complies with drug therapyComment on above:Take 10 mg by mouth daily at bedtime.naproxen 500 mg oral tablet (20 sources)Nonsteroidal Anti-inflammatory Drugtake 1 tablet by mouth twice daily at mealtimenaproxen (NAPROSYN) 500 mg tablet Take 500 mg by mouth twice daily with meals. ActiveComment on above:Take 500 mg by mouth twice daily with meals.Ozempic, 1 MG/DOSE, 4 MG/3ML solution pen-injector (5 sources)Start: 21-06-1939Rqtznbq, 1 MG/DOSE, 4 MG/3ML solution pen-injector 07/26/2023 Activepolyethylene glycol 3350 151996 mg / potassium chloride 1480 mg / sodium bicarbonate 5720 mg / sodium chloride 00401 mg powder for oral solution (1 source)Osmotic LaxativeStart: 62-54-5795QpEFSEGX [place] oral powder for reconstitution See Instructions, 1 EA, Refill(s) 0, Prior to colonoscopy., [id number], 175, cm, 11/01/21 15:49:00 EDT, Height/Length Dosing, 121.9, kg, 11/01/21 15:49:00 EDT, Weight Dosing Start Date: 11/01/21 Status: Ordered0.25 mg, 0.5 mg dose 1.5 ml semaglutide 1.34 mg/ml pen injector (20 sources)Start: 76-77-6898aejpiiceorv (OZEMPIC) 0.25 mg or 0.5 mg(2 mg/1.5 mL) pen Inject 1 mg subcutaneously one time a week. 07/12/2023 ActiveStart: 05-11-2021 End: 91-09-9004Rxwdboj 2 mg/1.5 mL (0.25 mg or 0.5 mg dose) subcutaneous solution 0.25 mg, SubCutaneous, qWeek, Refill(s) 0 Start Date: 05/11/21 Status: OrderedComment on above:Inject 0.25 mg subcutaneously one time a week.Inject 1 mg subcutaneously one time a week.Semaglutide (2 sources)Start: 87-47-0330Fjbqmeqyazx (Ozempic) 1 mg/dose (4 mg/3 mL) pen injector Active MG SUBCUT June 19, 2024 1:00am Complies with drug therapy Start: 05-68-6361Vwmisadydxu (Ozempic) 1 mg/dose (4 mg/3 mL) pen injector Active MG SUBCUT June 19, 2024 12:00amsildenafil 100 mg oral tablet (20 sources)Phosphodiesterase 5 InhibitorStart: 54-93-5667Gfnooybdbq 100 mg tablet Active MG PO June 19, 2024 1:00am Complies with drug therapyStart: 55-11-5579xfvs 1 tablet by mouth once dailysildenafil 100 mg Tab 100 mg = 1 tab(s), Oral, Daily, Refills(s) 0, Erectile dysfunction Start Date: 05/11/21 Status: Orderedsildenafil (Viagra) 100 MG tablet TAKE 1 TABLET BY MOUTH 30 TO 60 MINUTES PRIOR TO DESIRED INTIMACYActiveComment on above:Take 100 mg by mouth as needed.sulfamethoxazole 800 mg / trimethoprim 160 mg oral tablet (14 sources)Dihydrofolate Reductase Inhibitor Antibacterial, Sulfonamide AntimicrobialStart: 09-05-2021 End: 48-48-5330elndjirtpsloceby-trimethoprim (BACTRIM DS,SEPTRA DS) 800-160 mg per tabletStart: 09-05-2021 End: 82-38-1934Zpyqdgf D.S. 800 mg-160 mg Tab 1 tab(s), Oral, BID for 7 day(s), 14 tab(s), Refill(s) 0, [facility] #[id number], 175, cm, 09/05/21 12:47:00 EDT, Height/Length Dosing, 124.7, kg, 09/05/21 12:47:00 EDT, Weight Dosing Start Date: 09/05/21 Stop Date: 09/12/21 Status: Orderedsyringe w-needle,disposab,3 mL (MONOJECT 3CC SYR 33NI0-1/2 MISC) (20 sources)syringe w-needle,disposab,3 mL (MONOJECT 3CC SYR 29RN9-3/2 MISC) Activesyringe w-needle,disposab,3 mL (MONOJECT 3CC SYR 96TH9-5/2 MISC) testosterone cypionate 100 mg/ml injectable solution (20 sources)AndrogenStart: 82-16-0521axzzit 50 mg by intramuscular injection every other weekTestosterone Cypionate 100 mg/mL oil Active 50 MG IM EVERY 2 WEEKS November 27, 2024 12:00am Complies with drug therapyStart: 06-19-2024 End: 22-02-0068Adtzlpczfzia Cypionate 200 mg/mL oil Discontinued MG SUBCUT June 19, 2024 1:00am November 27, 2024 11:55amStart: 58-98-5981wlkmqshmvsej cypionate (Depo-Testosterone) 200 MG/ML injection INJECT 1 ML ONCE A WEEK 09/01/2023 ActiveStart: 84-88-1205ilqocttbotzt cypionate (DEPO-TESTOSTERONE) 200 mg/mL injection INJECT 1 ML IN THE MUSCLE TWICE PER WEEK 08/10/2021 Active End: 06-97-0183kgatwvhtlcfe 200 mg pllt by IMPLANTATION route. 0 03/23/2022 Discontinued End: 52-12-3968jbgxgbwmzqan cypionate 200 mg/mL kit Inject intramuscularly. 0 2021 DiscontinuedComment on above:Inject intramuscularly.by IMPLANTATION route.INJECT 1 ML IN THE MUSCLE TWICE PER WEEKtestosterone cypionate 200 mg/mL IM Pauline (8 sources)Start: 58-96-0246hhikgqvvmxji cypionate 200 mg/mL IM Pauline 200 mg = 1 mL, IntraMuscular, ThuSun, Refills(s) 0, Prophylaxis Start Date: 05/11/21 Status: Ordered Completed/Discontinued Medications MedicationDrug Class(es)DatesSig (Normalized)Sig (Original)[id number] 200 actuat albuterol 0.09 mg/actuat metered dose inhaler (1 source)beta2-Adrenergic AgonistStart: 06-19-2024 End: 99-84-0562Kptilaosd Sulfate 90 mcg/actuation HFA aerosol inhaler Discontinued 2 INH INHALATION EVERY 4-6 HOURS as needed for shortness of breath or wheezing 6.7 June 19, 2024 1:00am November 27, 2024 3:31pmbenoxinate hydrochloride 4 mg/ml / fluorescein sodium 2.5 mg/ml ophthalmic solution (2 sources)Diagnostic DyeStart: 09-14-2022 End: 65-80-5289gzngpsetxoz-benoxinate 0.25-0.4 % 1 Drop (FLURESS)Start: 2021 End: 31-61-6355bvjpnyefwxp-benoxinate 0.25-0.4 % 1 Drop (FLURESS)benzonatate 100 mg oral capsule (1 source)Non-narcotic AntitussiveStart: 06-19-2024 End: 19-06-4509hkbh 1 capsule by mouth three times daily as needed for cough Benzonatate 100 mg capsule Discontinued 100 MG PO Three times daily as needed for cough 2024 1:00am November 27, 2024 3:31pmciprofloxacin 500 mg oral tablet (1 source)Quinolone AntimicrobialStart: 08-15-2022 End: 28-63-4525otyobeaqwfpoz HCl 500 mg tab(s) (CIPRO)emtricitabine 200 mg / tenofovir disoproxil fumarate 300 mg oral tablet (10 sources)Human Immunodeficiency Virus Nucleoside Analog Reverse Transcriptase InhibitorStart: 04-19-2023 End: 35-22-1603Pjwmnfhczwfze-Tenofovir (Tdf) 200-300 mg tablet Discontinued TAB PO June 19, 2024 1:00am November 27, 2024 3:32pmStart: 04-19-2023 emtricitabine-tenofovir disoproxil fumerate (TRUVADA) 200-300 mg per tablet 04/19/2023 Activephenylephrine hydrochloride 25 mg/ml ophthalmic solution (2 sources)alpha-1 Adrenergic AgonistStart: 09-14-2022 End: 26-98-0678UJGRGSkijnotg 2.5 % 1 Drop (AK-DILATE, JJ-SYNEPHRINE)Start: 2021 End: 86-15-5183UKQWFRztjladh 2.5 % 1 Drop (AK-DILATE, JJ-SYNEPHRINE)predniSONE 20 mg oral tablet (6 sources)Start: 06-19-2024 End: 32-70-4219xdyf 2 tablets by mouth once dailyPrednisone 20 mg tablet Discontinued 40 MG PO Daily 6 3 June 19, 2024 1:00am November 27, 2024 3:32pmStart: 98-47-1021jmsugvVBFE (Deltasone) 20 MG tablet Indications: Pharyngitis, unspecified etiology , Non-recurrent acute serous otitis media of both ears 3 pills days 1 and 2, 2 pills days 3 and 4, 1 pill day 5 and 6, 1/2 pill days 7 and 8. 13 tablet 09/10/2023 ActivetiZANidine 4 mg oral capsule (6 sources)Central alpha-2 Adrenergic Agonist End: 83-02-8807vpqb 1 capsule by mouth every eight hours as neededtiZANidine HCl 4 mg capsule Take 4 mg by mouth three times daily as needed. 0 2021 DiscontinuedComment on above:Take 4 mg by mouth three times daily as needed. tropicamide 10 mg/ml ophthalmic solution (2 sources)AnticholinergicStart: 09-14-2022 End: 23-79-1984aimxymrawhl 1 % 1 Drop (MYDRIACYL)Start: 2021 End: 93-17-0615wzcgvsmpcnq 1 % 1 Drop (MYDRIACYL) Problems Active Problems Problem ClassificationProblemDateDocumented DateEpisodic/ChronicCancer of other male genital organs (10 sources)Malignant tumor of penis; Translations: [Malignant neoplasm of penis, unspecified]Onset: 037405-48-9356HmgaygoNmarnf of other male genital organs (3 sources)History of malignant neoplasm of penis; Translations: [Personal history of malignant neoplasm of other male genital organs]Onset: 01-16-2025 03-73-3021GodfpktwQopvpmd obstructive pulmonary disease and bronchiectasis (1 source)Bronchitis; Translations: [Bronchitis, not specified as acute or chronic]12-15-8097EdlysirgBwzxucvo mellitus without complication (20 sources)Diabetes mellitus; Translations: [Type 2 diabetes mellitus without complications]Onset: 333242-78-8622BswmrenBdxatwbv mellitus without complication (8 sources)Glycosuria; Translations: [Glycosuria]Onset: 96-12-6450Uhpmjbou Disorders of lipid metabolism (20 sources)Hypercholesterolemia; Translations: [Pure hypercholesterolemia, unspecified]Onset: 855896-69-0909VwudzdlVjuwgdvziotffd and diverticulitis (5 sources)Diverticula of intestine; Translations: [Diverticulosis of intestine, part unspecified, without perforation or abscess without bleeding]Onset: 98-63-3048VvjszcyBwbrsrpmd hypertension (20 sources)Hypertensive disorder; Translations: [Essential (primary) hypertension]Onset: 689076-62-2058PrdjzubIanbuynpgtvkg congenital anomalies (20 sources)Congenital buried penis; 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]Onset: 878371-80-8086TqxzvzcRvyldnzj (2 sources)Suspected bilateral glaucoma; Translations: [Preglaucoma, unspecified, bilateral]ChronicHemorrhoids (5 sources)Hemorrhoids; Translations: [Unspecified hemorrhoids]Onset: 02-24-2022 EpisodicOther and unspecified benign neoplasm (5 sources)Polyp of colon; Translations: [Polyp of colon]Onset: 02-24-2022 EpisodicOther endocrine disorders (1 source)Testicular hypofunction; Translations: [Hypogonadism in male]Onset: 76-02-2367ZytrjrhOsqxu lower respiratory disease (4 sources)Snoring; Translations: [Snoring]33-14-4044FmbndulhMphrm male genital disorders (16 sources)Lesion of penis; Translations: [Disorder of penis, unspecified] ChronicOther male genital disorders (2 sources)Disorder of penis; Translations: [Disorder of penis, unspecified] Onset: 90-74-3298NgacchqZbygs male genital disorders (3 sources)Lichen sclerosus of penis; 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] ChronicOther male genital disorders (1 source)Male erectile dysfunction, unspecified; Translations: [Erectile dysfunction, unspecified erectile dysfunction type]Onset: 47-81-7226FzlxjuyQomhx nutritional; endocrine; and metabolic disorders (20 sources)Body mass index 40+ - severely obese; Translations: [Morbid (severe) obesity due to excess calories]Onset: 675360-11-3101TgbbgsyMyqeh nutritional; endocrine; and metabolic disorders (2 sources)Obesity; Translations: [Obesity, unspecified]11-36-1503TztblftSicss screening for suspected conditions (not mental disorders or infectious disease) (20 sources)Patient encounter status; Translations: [Encounter for screening for other disorder]Onset: 96-21-6347OhxzyxzsYjxvnzcy codes; unclassified (8 sources)Sleep fesmt09-41-6061AvfdcczGtpjdmxo codes; unclassified (4 sources)Obstructive sleep apnea (adult) (pediatric); Translations: [OBSTRUCTIVE SLEEP APNEA]Onset: 44-29-0806SosjbeqVbcawpcz codes; unclassified (4 sources)Obstructive sleep apnea syndrome; Translations: [Obstructive sleep apnea (adult) (pediatric)]91-15-5040JcffvduTarvwcve codes; unclassified (6 sources)Daytime somnolence; Translations: [Other hypersomnia]01-24-2024 ChronicResidual codes; unclassified (3 sources)Family history of malignant neoplasm of digestive organ; Translations: [Family history of malignantneoplasm of digestive organs]Onset: 80-50-6256MtlxonxfBbwdbdsz codes; unclassified (6 sources)Family history of cancer of jcula78-88-7428JqiccevxTzfvppglx malignancies (20 sources)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; Translations: [Secondary malignant neoplasm of genital organs]Onset: 857411-99-9352 ChronicUnclassified (6 sources)Patient encounter ajozjs67-52-2490 Past or Other Problems Problem ClassificationProblemDateDocumented DateEpisodic/ChronicCancer of testis (20 sources)History of malignant neoplasm of testis; Translations: [Personal history of malignant neoplasm of testis]Onset: 814115-66-5549Jfbvoceg Neoplasms of unspecified nature or uncertain behavior (20 sources)Penile intraepithelial neoplasia; Translations: [Neoplasm of unspecified behavior of other genitourinary organ]Onset: 989574-41-1558 Episodic Results Test NameValueInterpretationReference RangeFacilityCNOVon 63-84-4669CIEUFlqlsr Visit (UROLMN) TABBYFIDEL ROME ([id number]) 1970 M Date Time Provider Department 01/16/25 2:40 PM JOURDAN FRIAS During your visit today, we recorded the following information about you: Pulse Blood pressure Weight Height 75/minute 138/82 108.4 kg 1.753 m Jourdan Frias APRN.[employer]ICER 01/16/2025 3:48 PM Signed HPI: Fidel Lara is a 54 year old male with history of T2DM, HTN, HLD, 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 Dr. Cardona did excisional biopsy of glans penis, biopsy of ventral mid to proximal penile skin lesion, and takedown of distal penile skin adhesions on 07/13/2021. Pathology was benign on the glans and distal penis but PeIN on mid ventral to proximal shaft biopsy. Fidel Lara underwent re-excision in [facility] on 08/23/2021 (1.6cm x 1cm specimen) which returned squamous hyperplasia with hyperkeratosis. Fidel Lara had excision of 3 mm ventral penile lesion in [facility] on 01/02/2023, with pathology showing benign penile tissue with mild hyperkeratosis and minimal chronic inflammation. Fidel Lara was last seen on 01/17/2024: Encouraged him to restart clobetasol cream if itching and visible skin changes recur. Encouraged him to call office if he notices lesions that do not improve with clobetasol cream. Otherwise, he can RTC in 1 year. The patient is a 54-year-old male with history of penile cancer and diabetes mellitus, presenting for follow-up of penile cancer. The patient is a 54-year-old male with a history of penile cancer, presenting for a follow-up visit. The patient reports no new skin issues since his last visit approximately one year ago. He used clobetasol cream once in early September for mild pruritus, which resolved after a single application. He has a nearly full tube of the cream remaining. He denies any urinary symptoms, including changes in urinary stream or frequency. He continues to use Viagra for erectile dysfunction, prescribed by another physician, and reports it is effective. He is also on testosterone injections, administering 0.75 mL once weekly, with the last lab work for testosterone levels conducted in August at his family doctor's office. The patient has lost approximately 5 lbs over the past year, attributing the weight loss to dietary changes and the use of Ozempic. He is also taking Jardiance and Janumet for diabetes management. His blood glucose level was 123 mg/dL this morning. Recording using Cl[employer] App software for draft documentation of the visit was discussed with the patient/authorized pharmaceutical service representative; all questions welcomed and answered. Patient/authorized pharmaceutical service representative agreed to proceed URINE POC GLUCOSE UA (POCT) >=1000 01/16/2025 BILIRUBIN UA (POCT) Negative 01/16/2025 KETONE UA (POCT) Negative 01/16/2025 SPECIFIC GRAVITY UA (POCT) 1.015 01/16/2025 HEMOGLOBIN/BLOOD UA (POCT) Negative 01/16/2025 PH UA (POCT) 7.5 01/16/2025 PROTEIN UA (POCT) Negative 01/16/2025 UROBILINOGEN UA (POCT) 0.2 01/16/2025 NITRITE UA (POCT) Negative 01/16/2025 LEUKOCYTES UA (POCT) Negative 01/16/2025 COLOR UA (POCT) Yellow 01/16/2025 CLARITY UA (POCT) Clear 01/16/2025 PAST MEDICAL HISTORY Diagnosis Date Glaucoma suspect High cholesterol Hypertension Type 2 diabetes mellitus (HCC) PAST SURGICAL HISTORY Procedure Laterality Date PAST SURGICAL HISTORY OF lesions removed from penis PAST SURGICAL HISTORY OF testical removed due to cancer SOCIAL HISTORY[1] Current Outpatient Medications Medication Sig Dispense Refill testosterone cypionate (DEPO-TESTOSTERONE) 200 mg/mL injection Inject 0.75 mL intramuscularly one time a week. emtricitabine-tenofovir disoproxil fumerate (TRUVADA) 200-300 mg per tablet semaglutide (OZEMPIC) 0.25 mg or 0.5 mg(2 mg/1.5 mL) pen Inject 1 mg subcutaneously one time a week. modafinil (PROVIGIL) 200 mg tablet Take 1 tablet by mouth once daily. clobetasol (TEMOVATE) 0.05 % cream Apply to affected area two times a day. Use for a week at a time as needed 45 g 3 fexofenadine (VERONICA) 180 mg tablet Take 180 [...] meals. sildenafil (VIAGRA) 100 mg tablet Take (more content not included)...[facility] ClevelandURINALYSIS, REFLEX MICROSCOPICon 51-52-3078Muxwfqniq Ql (U)NegativeNegativeCleholzer hospital ClinicClarity (Unsp spec)ClearClearCleveland ClinicColor (U)YellowYellowCleBerger HospitalGlucose Test strip (U) [Mass/Vol]3+ AbnormalNegativeCleBerger HospitalHemoglobin Ql (U)NegativeNegativePalestine ClinicInterpretation and review of laboratory resultsAbnormalCleveland Clinic Ketones Ql (U)NegativeNegativeCoshocton Regional Medical CenterLeukocyte esterase Test strip Ql (U)NegativeNegativeCoshocton Regional Medical CenterNitrite Ql (U)NegativeNegativeCoshocton Regional Medical CenterpH (U)6.0 [pH]NINF - 8.5Cleveland ClinicProtein (U) [Mass/Vol]1+Abnormal NegativeLicking Memorial Hospitalpecific gravity (U) [Rel density]1.965Szfr9.005 - 1.030 [facility] Medical CenterUrobilinogen Ql (U)0.2 EU/dL0.2-1.0 EU/dLDayton Va Medical Center ClinicCoding Summary.on 43-92-4451Whants Summary. GXXENawc49OBx4mHu+PGhlYWQ+IQ1TWEOmG00vfARzcH9oS8FDBYvGAvndMMCTYEmDRcWgziEnUW7giA NjZXJu [file] AnNlb0wgQFEaH (more content not included)...[facility] HospitalXR Knee Complete 4+ Views Lefton 45-05-0886RQ Knee Complete 4+ Views LeftExam Date/Time: 10/06/2023 07:20 EDT Reason for Exam: [...] Markham FINAL REPORT Dictated: 10/10/2023 3:35 pm Dodie Hoover DO Signed (Electronic Signature): 10/10/2023 3:35 pm Signed by: Dodie Hoover DO Transcribed by: MOISÉS Technologist: GIANFRANCO Technical Comments Radiation Dose: Ka,r in mGy = . DAP = .[facility] HospitalConsent for Treatmenton 10-06-2023 Consent for [id number]#1.00TIFFNoMorrow County HospitalPhysician Orderon 37-35-1665Bwepycukc Order [id number]#1.00TIFSelect Medical Specialty Hospital - Cleveland-FairhillPT - Orderson 19-21-6746GI - Orders [id number]#1.00TIFSelect Medical Specialty Hospital - Cleveland-FairhillURINALYSIS, REFLEX MICROSCOPICon 06-29-3187Kwjlgezsj Ql (U)Negative NegativeCleveland ClinicClarity (Unsp spec)ClearClearCleveland ClinicColor (U) Light YellowYellowCleveland ClinicGlucose Test strip (U) [Mass/Vol]4+Abnormal Trace, NegativeCleveland ClinicHemoglobin Ql (U)NegativeNegative, TraceCleveland ClinicKetones Ql (U)NegativeNegative, TraceCleveland ClinicLeukocyte esterase Test strip Ql (U)NegativeNegative, 25 Rubio/uLCleveland ClinicNitrite Ql (U) NegativeNegativeCleveland ClinicpH (U)6.0 [pH]5.0 - 8.0Cleveland ClinicProtein (U) [Mass/Vol]NegativeTrace, NegativeCleveland ClinicSpecific gravity (U) [Rel density]1.0181.005 - 1.030Cleveland ClinicUrobilinogen Ql (U)NormalNormal Barker ClinicURINALYSIS, REFLEX MICROSCOPICon 90-38-8759Urhhzdjix Ql (U) NegativeNegativeCleveland ClinicClarity (Unsp spec)ClearClearCleveland Clinic Color (U)Light YellowYellowCleveland ClinicGlucose Test strip (U) [Mass/Vol]4+ AbnormalTrace, NegativeCleveland ClinicHemoglobin Ql (U)NegativeNegative, Trace Barker ClinicKetones Ql (U)NegativeNegative, TraceCleveland ClinicLeukocyte esterase Test strip Ql (U)NegativeNegative, 25 Rubio/uLCleveland ClinicNitrite Ql (U)NegativeNegativeCleveland ClinicpH (U)6.5 [pH]5.0 - 8.0[facility] Protein (U) [Mass/Vol]TraceTrace, NegativeCleveland ClinicSpecific gravity (U) [Rel density]1.0281.005 - 1.030Cleveland ClinicUrobilinogen Ql (U)Negative NegativeCleveland ClinicUA DIP, URINE (POC)on 70-47-9602SNIGCJKQQ UA (POCT) NegativeNegativeCleholzer hospital ClinicCLARITY UA (POCT)ClearPalestine ClinicCOLOR UA (POCT)YellowPalestine ClinicGLUCOSE UA (POCT)>=1000AbnormalNegative mg/dL BarkerBerger HospitalHEMOGLOBIN/BLOOD UA (POCT)NegativeNegativeCleholzer hospital ClinicKETONE UA (POCT)NegativeNegative mg/dLPalestine ClinicLEUKOCYTES UA (POCT)Negative NegativePalestine ClinicNITRITE UA (POCT)NegativeNegativePalestine ClinicPH UA (POCT)6.04.5 - 8.0[facility] Medical CenterProtein Ql (U)NegativeNegative mg/dLPalestine ClinicSPECIFIC GRAVITY UA (POCT)1.0151.005 - 1.030[facility] Medical CenterUROBILINOGEN UA (POCT)0.2 E.U./dLNormal E.U./dLCoshocton Regional Medical CenterURINALYSIS, REFLEX MICROSCOPIC on 71-18-4026Eopnnooyr Ql (U)NegativeNegativeCleveland ClinicClarity (Unsp spec) ClearClearCleveland ClinicColor (U)Light YellowYellowCoshocton Regional Medical CenterGlucose Test strip (U) [Mass/Vol]4+AbnormalTrace, NegativeCoshocton Regional Medical CenterHemoglobin Ql (U)NegativeNegative, TraceCleholzer hospital ClinicKetones Ql (U)NegativeNegative, Trace [facility] CenterLeukocyte esterase Test strip Ql (U)NegativeNegative, 25 Rubio/uL [facility] CenterNitrite Ql (U)NegativeNegativePalestine ClinicpH (U)6.0 [pH]5.0 - 8.0Cleholzer hospital ClinicProtein (U) [Mass/Vol]NegativeTrace, NegativeCleveland ClinicSpecific gravity (U) [Rel density]1.252Sxez9.005 - 1.030[facility] Urobilinogen Ql (U)NegativeNegativePalestine ClinicURINALYSIS, REFLEX MICROSCOPICon 03-41-3761Btyymchiq Ql (U)NegativeNegativeCleveland ClinicClarity (Unsp spec)ClearClearCleveland ClinicColor (U)Light YellowYellowCoshocton Regional Medical Center Glucose Test strip (U) [Mass/Vol]4+AbnormalNegativeCleholzer hospital ClinicHemoglobin Ql (U)NegativeNegativeCleholzer hospital ClinicKetones Ql (U)NegativeNegativeCoshocton Regional Medical CenterLeukocyte esterase Test strip Ql (U)NegativeNegativeCleholzer hospital Clinic Nitrite Ql (U)NegativeNegativeCleholzer hospital ClinicpH (U)6.5 [pH]5.0 - 8.0Cleveland ClinicProtein (U) [Mass/Vol]NegativeNegativePalestine ClinicSpecific gravity (U) [Rel density]1.0191.005 - 1.030Cleveland ClinicUrobilinogen Ql (U)Negative NegativePalestine ClinicPSA, FREE AND TOTAL RATIOon 11-23-2021% Free PSA8.6 % NormalThe [facility] on above:Result Comment: The table below lists the probability [...] free PSA for any other population of men.Performed By: #### PSAFREE #### [facility] [address] [place] [address] Dr. Michael Sheehan specific Ag [Mass/Vol]2.8 ng/mLNormal0.0-4.0The [facility] on above:Result Comment: Robina ECLIA methodology. . According to the [place] [employer], Serum PSA should decrease and [...] of the presence or absence of malignant disease.Performed By: #### PSAFREE #### [facility] [id number] Michael Wang, Free0.24 ng/mLNormalN/AThe Evergreen HospitalComment on above:Result Comment: Robina ECLIA methodology.Performed By: #### PSAFREE #### [facility] [address] [place] [address] Dr. Michael MacdonaldURINALYSIS, REFLEX MICROSCOPICon 52-11-8332Ysmwpizyx Ql (U) NegativeNegativeCleveland ClinicClarity (Unsp spec)ClearClearCleveland Clinic Color (U)Light YellowYellowCleveland ClinicGlucose Test strip (U) [Mass/Vol]4+ AbnormalNegativeCleveland ClinicHemoglobin Ql (U)NegativeNegativeCleveland ClinicKetones Ql (U)NegativeNegativeCleveland ClinicLeukocyte esterase Test strip Ql (U)NegativeNegativeCleveland ClinicNitrite Ql (U)NegativeNegative Barker ClinicpH (U)6.0 [pH]5.0 - 8.0Cleveland ClinicProtein (U) [Mass/Vol] NegativeNegativeCleveland ClinicSpecific gravity (U) [Rel density]1.0271.005 - 1.030Cleveland ClinicUrobilinogen Ql (U)NegativeNegativePalestine Clinic URINALYSIS, REFLEX MICROSCOPICon 84-18-3977Luuysvrqr Ql (U)NegativeNegative Barker ClinicClarity (Unsp spec)ClearClearCleveland ClinicColor (U)Colorless YellowCleveland ClinicGlucose Test strip (U) [Mass/Vol]4+AbnormalNegative Barker ClinicHemoglobin Ql (U)NegativeNegativeCleveland ClinicKetones Ql (U) NegativeNegativeCleveland ClinicLeukocyte esterase Test strip Ql (U)Negative NegativeCleveland ClinicNitrite Ql (U)NegativeNegativeCleveland ClinicpH (U)5.5 [pH]5.0 - 8.0Cleveland ClinicProtein (U) [Mass/Vol]NegativeNegativeCleveland ClinicSpecific gravity (U) [Rel density]1.0101.005 - 1.030CleBerger Hospital Urobilinogen Ql (U)NegativeNegativeCleveland ClinicNo Panel InformationCleBerger Hospital Vital Signs Date TimeVital SignValuePerforming EhwnhvgdsQbgkllna28-57-1677 11:56-0400Body .26 Desean De La Rosa DO Work Phone: [facility]08-06-2025 11:56-0400 Body mass index (BMI) [Ratio]35.7 kg/m2Neris De La Rosa DO Work Phone: [phone]08-06-2025 11:56-0400 Body qbhpiw222.82 kgNeris De La Rosa DO Work Phone: [phone]-[facility]08-06-2025 11:56-0400 Diastolic blood mm[Hg]Neris De La Rosa DO Work Phone: [phone] [place], [place] 6651808-06-2025 11:56-0400 Heart rate60 /minNeris De La Rosa DO Work Phone: [phone] [place], [place] 6651808-06-2025 11:56-0400 SaO2% (BldA) [Mass fraction]97 %Neris De La Rosa DO Work Phone: [phone] [place], [place] 6651808-06-2025 11:56-0400 Systolic blood gzdrobkk181 mm[Hg]Neris De La Rosa DO Work Phone: [phone] [place], [place] 6651802-26-2025 15:31-0500 Body gdwmuw027.26 cmBer[facility]02-26-2025 15:31-0500Body mass index (BMI) [Ratio]35.7 kg/z1SyomylxrlBerger Hospital02-26-2025 15:31-0500Body lihxewljemj90.6 [degF][facility]02-26-2025 15:31-0500Body .76 kgBer[facility] Hospital02-26-2025 15:31-0500Diastolic blood iuahphat87 mm[Hg][facility] 06-19-2024 15:31-0500Heart rate68 /[facility] 06-19-2024 15:31-0500Respiratory rate18 /[facility] 06-19-2024 15:31-7599YzR3% (BldA) [Mass fraction]98 %[facility]02-26-2025 15:31-0500Systolic blood sypizgqp494 mm[Hg][facility]10-02-2024 15:29-0400Body .3 cmArodolfo Cifuentes SALESPERSON [employer]ISH[employer] Work Phone: [facility] HospitalMmgrgvpati55-30-7105 15:29-0400Body mass index (BMI) [Ratio]36.18 kg/z6XfclfxClarice Cifuentes [employer]ESPERSON [employer] Work Phone: [facility] HospitalYypyzvgqll71-66-7870 15:29-0400Body smsyos296.13 kgClarice Cifuentes [employer]ESPERSON [employer] Work Phone: [facility] HospitalSrpcyuztgt95-27-9471 15:29-0400Diastolic blood goxnadtr73 mm[Hg]Clarice Cifuentes [employer] Work Phone: [facility] HospitalTqkfbshong23-33-8422 15:29-0400Heart rate79 /min Clarice Cifuentes [employer] Work Phone: [facility] HospitalCecsifvpwk27-69-4646 15:29-0400Systolic blood zvxiykgl772 mm[Hg]Clarice Cifuentes [employer] Work Phone: [facility] HospitalWqzufnblat35-87-5652 10:44-0400Body ctqekn907.3 cmHallie Arrigon CODING SUPPORT SPECIALIST.SURVEILLANCE OFFICER Work Phone: [phone] Fvwzjh81-12-3024 10:44-0400Body mass index (BMI) [Ratio]36.07 kg/e4Yzumdk Arrigon CODING SUPPORT SPECIALIST.SURVEILLANCE OFFICER Work Phone: [place] Xabdpt29-54-6804 10:44-0400Body .8 kgHallie Arrigon CODING SUPPORT SPECIALIST.SURVEILLANCE OFFICER Work Phone: [place] Zhuelh95-47-4756 12:53-0400Body ebllnk331.3 cmEdgar Cardona MD Work Phone: [place] Figqzi15-54-4750 12:53-0400Body kptixd844.2 kgEdgar Cardona MD Work Phone: [place] Bdvjuk58-95-7215 12:53-0400Diastolic blood euqmcjhn72 mm[Hg]Edgar Cardona MD Work Phone: YOur [facility] AndersonOmdyvo61-02-5513 12:53-0400Heart rate88 /min Edgar Cardona MD Work Phone: [phone] [facility] of Mer[facility] - AndersonFgyrmx46-15-4283 12:53-0400Systolic blood ehsivugn305 mm[Hg]Edgar Cardona MD Work Phone: [phone] [facility] - AndersonAyjssk21-32-4383 08:19-0500Diastolic blood vtcyvpqj44 mm[Hg]Lannette ClemonsExecutive [facility]01-30-2023 08:19-0500Heart rate76 /minLannette ClemonsExecutive [facility]01-30-2023 08:19-0500Systolic blood xuyxmies005 mm[Hg]Lannette ClemonsExecutive [facility] [place] 157221-30-2022 13:22-0500Body .3 cmEdgar Cardona MD Work Phone: VOur [facility] - AndersonXbtnaf91-50-1785 13:22-0500Body xezblf686.38 kgEdgar Cardona MD Work Phone: [phone] Lady of Mercy Hospital - AndersonOwdyxj65-42-7268 13:22-0500Diastolic blood mxsccirw10 mm[Hg]Edgar Cardona MD Work Phone: [phone] Lady of Mercy Hospital - AndersonEwemnq29-62-2411 13:22-0500Heart rate73 /min Edgar Cardona MD Work Phone: [phone] Lady of Mercy Hospital - AndersonYdmujd33-43-6754 13:22-0500Systolic blood hzngwnev631 mm[Hg]Edgar Cardona MD Work Phone: [phone] Lady of Mercy Hospital - AndersonNmjold83-41-3521 12:31-0400Diastolic blood obyltvrq64 mm[Hg]Jody Ng [phone]-QuzzeMemorial Health [facility]ive Fxcsco86-71-7268 12:31-0400Mean blood ekoopvch07 mm[Hg]Jody Ng [phone]-CnqclGreene [facility] Hospital11-03-2022 12:31-0400Systolic blood udbnqmlg380 mm[Hg]Jody Ng 272-2333Qhnahe-Zxxty[address] [place], [place] 5204611-03-2022 12:28-0400Blood Pressure LocationBeth Hernandez [phone]-Smyyz[address] [place], [place] 5204611-03-2022 12:28-0400Body dnbbjmalzdj96.52 [degF]Jody Ng [phone]-Rdwbo[address] [place], [place] [address]4611-03-2022 12:28-0400Diastolic blood heronqbp45 mm[Hg]Jody Ng [phone]-Wywiz[address] [place], [place] 5204611-03-2022 12:28-0400Heart rate76 /minJody Ng 155-5436Kciafs-Cshit[address] [place], [place] 5204611-03-2022 12:28-0400Systolic blood rdpctqiv671 mm[Hg]Jody Ng 565-2450Cxgtep-Kyjfe[address] [place], [place] 5204608-17-2022 14:42-0400Diastolic blood xikhhxcw87 mm[Hg]Vivian SOTELO [facility]08-17-2022 14:42-0400Heart rate73 /minMaher SALAM [facility]08-17-2022 14:42-0400 Respiratory rate17 /minMaher SALAM [facility]08-17-2022 14:42-9018PrO0% (BldA) [Mass fraction]96 %Park SALAM [facility]08-17-2022 14:42-0400 Systolic blood uuvoutlt331 mm[Hg]Parkkiera GANNONAM [facility]08-17-2022 14:25-0400 Diastolic blood mm[Hg]Park SALAM [facility]08-17-2022 14:25-0400Heart rate75 /minMaher SALAM [facility]08-17-2022 14:25-0400 Respiratory rate16 /minMaher SALAM [facility]08-17-2022 14:25-3047GyU8% (BldA) [Mass fraction]96 %Park SALAM [facility]08-17-2022 14:25-0400 Systolic blood kdeukyyq300 mm[Hg]Park SALAM [facility]08-17-2022 14:20-0400 Diastolic blood etnlacmz03 mm[Hg]Park SALAM [facility]08-17-2022 14:20-0400Heart rate77 /minMaher SALAM [facility]08-17-2022 14:20-0400 Respiratory rate14 /minMaher SALAM [facility]08-17-2022 14:20-0302WdM2% (BldA) [Mass fraction]94 %Park SALAM [facility]08-17-2022 14:20-0400 Systolic blood kkdllcdu174 mm[Hg]Park SALAM [facility]08-17-2022 14:12-0400Body vigzeagtlqg93.7 [degF]Park SALAM [address] [place], [place] 15[address]208-17-2022 13:57-0400 Respiratory rate18 /minMaher SALAM [facility]08-17-2022 13:14-0400Blood Pressure LocationMaher DEEPAK [facility]08-17-2022 13:14-0400Body rpeqxpnadme03.88 [degF]Park DEEPAK [facility]08-17-2022 13:14-0400 Respiratory rate20 /minHiher SOTELO [facility]07-11-2022 15:45-0400Blood Pressure LocationBeth Hernandez [phone]-DxidaMemorial Health [facility] 07-11-2022 15:45-0400Body xzwggigvrkq20.8 [degF]Jody Ng [phone]-CsxvyMemorial Health System [facility] 07-11-2022 15:45-0400Diastolic blood mm[Hg] Jody Ng [phone]-CsujwMemorial Health System [facility] 07-11-2022 15:45-0400Heart rate68 /minJody Ng [phone]-FlsecMemorial Health System [facility] 07-11-2022 15:45-9711OmN6% (BldA) [Mass fraction]95 % Jody Ng [phone]-FrdnwMemorial Health System [facility] 07-11-2022 15:45-0400Systolic blood yytjwejk495 mm[Hg] Jody Shresthaz [phone]-WpzqmMemorial Health System [facility] 05-27-2022 13:16-0400Body nheohj717.3 cmJass Vogt MD Work Phone: [facility]05-27-2022 13:16-0400Body rwtfik197.42 kgJass Vogt MD Work Phone: [facility]05-27-2022 13:16-0400Diastolic blood frldipmm83 mm[Hg]Jass Vogt MD Work Phone: [facility]05-27-2022 13:16-0400Heart rate71 /min Jass Vogt MD Work Phone: [facility]05-27-2022 13:16-0400Systolic blood fmiwbryz336 mm[Hg]Jass Vogt MD Work Phone: [facility]05-15-2022 12:41-0400Blood Pressure LocationAmanda NALLELY [phone]-XzdwbMemorial Health System [facility] 05-15-2022 12:41-0400Body yxpixprzroz05.06 [degF]Yana BROWNING [phone]-CwwuwMemorial Health System [facility] 05-15-2022 12:41-0400Diastolic blood zfwrpozq40 mm[Hg] Yana BROWNING [phone]-RtteqMemorial Health System [facility] 05-15-2022 12:41-0400Heart rate65 /minYana BROWNING [phone]-ZthhlMemorial Health [facility] 05-15-2022 12:41-0493VtG5% (BldA) [Mass fraction]98 % Yana BROWNING [phone]-KgpatMemorial Health System [facility] 05-15-2022 12:41-0400Systolic blood qqxpyasb748 mm[Hg] Yana BROWNING [phone]-IphbjMemorial Health System [facility] Encounters Encounter DateEncounter TypeCare ProviderFacilityStart: 01-16-2025 End: 93-44-0881luwjcgisxnBUGKSD P ARRIGONFacility:[facility] Start: 11-27-2024 End: 05-05-6994zjktlqfnduYop Shazia De La Rosa DO Work Phone: [facility] Work Phone: Start: 11-27-2024 End: 70-67-2783Yrtkydz encounter procedureClarice Alvarado [facility] Work Phone: Start: 09-17-2024 End: 36-74-3962EkswulWysylwpy Davis MAANA BELLEVUEComment on above:Daytime hypersomnolence (Primary Dx)Start: 06-19-2024 End: 20-10-2271jxtnrksslwEpvvjwzigHenry County Hospital Work Phone: Start: 06-19-2024 End: 18-28-2707Kxdjaud encounter procedureAt[facility] Health [facility] Work Phone: Start: 03-20-2024 End: 79-59-2805Jcngrqyml encounterNicole Cy DO Work Phone: [facility] [address] ROUTEStart: 01-24-2024 End: 46-51-2134Suzfyc outpatient visit 25 radAngeyared Cifuentes NP Work Phone: noms [address] STATE ROUTEComment on above:MILLY (obstructive sleep apnea) (Primary Dx); Daytime hypersomnolence; SnoringStart: 01-24-2024 End: 71-85-4276hkoxvsdqikNFZYRE GILLMORNot AvailableStart: 01-24-2024 End: 55-12-8924Dcuocg flowsheetClarice Cifuentes [employer]INGS Work Phone: NOM[facility] [address] R[address]TEStart: 01-24-2024 End: 80-41-0329Feykap flowsheetClarice Cifuentes [employer] Work Phone: noMS [address] STATE R[address]TEStart: 01-17-2024 End: 55-21-0563smzpjyvdauPukqtg P Arrigon CODING SUPPORT SPECIALIST.SURVEILLANCE OFFICER Work Phone: UrologyStart: 01-17-2024 End: 46-95-8250Xjcohgx encounter procedureHallie P Arrigon CODING SUPPORT SPECIALIST.[facility] Work Phone: UrologyComment on above:History of penile cancer (Primary Dx)Start: 10-24-2023 End: 77-07-4287mrzithdrjgHqkhndj R JoseersFacility:FTMCStart: 10-06-2023 End: 83-37-1019hdezibecovSpgtbgz R RogersFacility:FTMCStart: 10-06-2023 End: 80-03-9795Afotygw encounter procedureRolland Cuauhtemoc Markham III [facility] Start: 09-10-2023 End: 17-43-2628rtclqambzkWCOBEYZ G TESMONDNot AvailableStart: 07-12-2023 ambulatoryHallie P Arrigon CODING SUPPORT SPECIALIST.[facility] Work Phone: UrologyStart: 07-12-2023 End: 05-38-3427Jpgkgbz encounter procedureHallie P Arrigon CODING SUPPORT SPECIALIST.[facility] Work Phone: UrologyComment on above:Lichen sclerosus of penis (Primary Dx); History of penile cancerStart: 45-67-1702Gkfdrmvha encounterEdgar Cardona MD Work Phone: UrologyStart: 10-86-8656ywhghyuwjlQfdzqvm W Angermeier MD Work Phone: UrologyStart: 12-07-2022 End: 49-58-4062Hyflmje encounter procedureEdgar Cardona MD Work Phone: UrologyComment on above:Penile lesion (Primary Dx); Lichen sclerosus of penisStart: 09-14-2022 End: 24-01-8859Qayfgcn encounter procedureRafaela Nova MD Work Phone: OphthalmologyComment on above:Glaucoma suspect of both eyes (Primary Dx)Start: 08-15-2022 End: 56-98-4478Cnkiedt encounter procedureEdgar Cardona MD Work Phone: UrologyComment on above:Lichen sclerosus of penis (Primary Dx)Start: 07-20-2022 End: 58-11-7816yixsgsyampFV DOCTOR MISCFacility:T5Uewvy: 84-99-2472smnhjpwxdt Edgar Cardona MD Work Phone: UrologyStart: 07-11-2022 End: 79-28-4267Nsxkjqj encounter procedureEdgar Cardona MD Work Phone: UrologyComment on above:Penile lesion (Primary Dx); Penile intraepithelial neoplasia; Hidden penisStart: 05-30-2022 End: 82-27-0144Itmhbni encounter procedureEstrella AMARO [facility] Start: 05-23-2022 End: 45-87-8950Gsmbbcs encounter procedureLanserina McqueenmonsExecutive [facility] Start: 03-39-3455koaasfcpczLxuyxfh W Angermeier MD Work Phone: UrologyStart: 03-23-2022 End: 22-78-1076Pklfnoh encounter procedureEdgar Cardona MD Work Phone: UrologyComment on above:Penile intraepithelial neoplasia (Primary Dx); Penile lesionStart: 71-66-9367ektintqavoTY NONE LISTED REQUESTFacility:G7Ixhxv: 03-07-2022 End: 44-37-9246gwurxarlhmSC NONE LISTED REQUESTFacility:F8Vtdui: 02-24-2022 End: 17-74-8933Stqnuef encounter procedureJody Ng [phone]-SeibmMemorial Health [facility] Start: 12-08-2021 End: 38-27-5240Sixyorr encounter procedureVivian DEEPAK [facility] Start: 11-22-2021 End: 11-11-8014yndxaajjcaDY NONE LISTED REQUESTFacility:C9Orgur: 11-01-2021 End: 54-68-2148Qakevbp encounter procedureBrucehansel Ng [phone]-DbityMemorial Health System [facility] Start: 98-71-0727Uwhqubhrf encounterEdgar Cardona MD Work Phone: UrologyComment on above:FMLA PaperworkStart: 27-61-9208utsowrajcxLlakzh Zhao MD Work Phone: UrologyStart: 09-17-2021 End: 88-39-5357Cwsvxsa encounter procedureJass Vogt MD Work Phone: UrologyComment on above:Penile lesionStart: 2021 End: 74-84-7861Hbgqxxe encounter procedureRafaela Nova MD Work Phone: OphthalmologyComment on above:Glaucoma suspect of both eyes (Primary Dx)Start: 09-05-2021 End: 14-70-5651Ibj Drop offYana BROWNING [facility] Start: 09-05-2021 End: 97-14-2138Opqhijz encounter procedureYana BROWNING [phone]-EeedhMemorial Health [facility] Start: 23-95-3016Wgdujhwfq encounterJass Vogt MD Work Phone: UrologyComment on above:Patient UpdateStart: 08-23-2021 End: 45-41-3717Onfiouv encounter procedureEdgar Cardona MD Work Phone: UrologyComment on above:Penile intraepithelial neoplasia (Primary Dx); Penile lesion; Morbid obesity with BMI of 40.0-44.9, adult (HCC)Start: 68-94-1966Bxenxzjqz encounterRafaela Nova MD Work Phone: OphthalmologyComment on above:AppointmentStart: 13-42-7885Tvnmctgxt encounterEdgar Cardona MD Work Phone: UrologyComment on above:FMLA PaperworkStart: 38-28-8825rffhserofcSiihsv Zhao MD Work Phone: UrologyStart: 95-31-6369Odziifgfs encounterEdgar Cardona MD Work Phone: UrologyComment on above:Results Procedures DateProcedureProcedure DetailPerforming ClinicianStart: 41-08-1406Vfmxu dip stick/tablet rgnt auto w/o microscopyBulk Order ProviderStart: 44-24-2857Fnoso dip stick/tablet rgnt auto w/o microscopyBulk Order ProviderStart: 12-07-2022 Urnls dip stick/tablet rgnt auto w/o microscopyBulk Order ProviderStart: 48-22-7890Pflfjbdpfhxu ophthalmic imaging optic nerveRafaela Nova MD Work Phone: Start: 15-23-5999Wzqnp dip stick/tablet rgnt auto w/o microscopyEdgar Cardona MD Work Phone: Start: 86-62-7946Tthwd dip stick/tablet rgnt auto w/o microscopyBulk Order ProviderStart: 66-53-6116Caiae dip stick/tablet rgnt auto w/o microscopyBulk Order ProviderStart: 02-29-7312QCS screeningDR NONE LISTED REQUESTComment on above:Performed By: #### PSAD #### [facility] [address] [place] [address] Dr. Michael MacdonaldStart: 49-70-2524IurzoybzbsqFidddk Gillmor NP Work Phone: Start: 58-80-9391EuptedcyylsQdolf SALAM Start: 24-53-9834Qvcfb dip stick/tablet rgnt auto w/o microscopyBulk Order ProviderStart: 66-56-6599Lbwprfonie us dx corneal pachymetry uni/biRafaela Nova MD Work Phone: Start: 2021 End: 53-75-8151Wovxrt field xm uni/bi w/interp extended examRafaela Nova MD Work Phone: Start: 83-41-6953Vkgms dip stick/tablet rgnt auto w/o microscopyBulk Order ProviderStart: 42-43-5368GbrhshMxoylu NALLELY Start: 14-84-0661Suazp radical orchidectomyMaher SALAM Absent testicle (congenital) (disorder)Yana BRADPage Plan of Treatment DateCare ActivityDetailAuthorStart: 46-46-4874Wbsfd microalbumin profile DTaP,Tdap,Td Vaccine (3 - Td or Tdap)[facility]: 01-58-5072Eshgqvjdf for malignant neoplasm of colonNONM HealthcareStart: 67-90-6373Rutdfyyda vaccinationInfluenza Vaccine (Season Ended)[facility] HealthcareStart: 01-24-2024 End: 53-78-5813Zsghdbi encounter clovdlast35/02/2024 3:30 PM EDT Office Visit [facility] [address] [place] [address] Clarice Cifuentes NP [address] [place], [place] ArrivedMCKITRICK HOSPITAL ROUTEComment on above: ArrivedStart: 08-20-4919Pdqcz-19 Vaccine ( season)Covid-19 Vaccine ( season)[facility]: 59-66-6627Snsqtlscx vaccination Influenza Vaccine (#1)[facility]: 95-88-2802Hoctdjno screeningDilated Retinal ExamLicking Memorial Hospitaltart: 92-56-2353Ppwjpzfem C antibody, confirmatory testDILATED RETINAL EXAMLicking Memorial Hospitaltart: 43-27-8120Nxjpkbvvgd Assessment Depression AssessmentLicking Memorial Hospitaltart: 21-93-7626Novilrzmv vaccination [facility]: 10-08-0035ES CONTROLLED (<130/80)BP CONTROLLED (<130/80) [facility]: 15-81-2884Tcjlgaoeh C antibody, confirmatory testDILATED RETINAL EXAMLicking Memorial Hospitaltart: 31-62-1328LP CONTROLLED (<130/80)BP CONTROLLED (<130/80)[facility]: 62-21-3689EJQQAHGNKZ ASSESSMENT DEPRESSION ASSESSMENTLicking Memorial Hospitaltart: 37-88-1712PIVGU-19 VACCINE (4 - Booster for Pfizer series)COVID-19 VACCINE (4 - Booster for Pfizer series) [facility]: 36-96-6304EIGHOAIQ VACCINE (1 of 2)SHINGRIX VACCINE (1 of 2)[facility]: 22-03-1296CGJMWAQUPB ASSESSMENTDEPRESSION ASSESSMENT [facility]: 54-54-7460GDYRUIMPY (FIT-DNA)COLOGUARD (FIT-DNA)[facility]: 73-05-4886JejwjtfaexzJNZFJEIZJTUIyfkabzhp ClinicStart: 09-05-2016 COLORECTAL CANCER SCREENINGCOLORECTAL CANCER SCREENINGLicking Memorial Hospitaltart: 72-94-8038QY COLONOGRAPHYCT COLONOGRAPHYLicking Memorial Hospitaltart: 17-12-3265CSHQV OCCULT BLOODFECAL OCCULT BLOODLicking Memorial Hospitaltart: 74-77-9692Tpqqlfmkp for malignant neoplasm of colonLicking Memorial Hospitaltart: 96-41-1703EAZBMNHLDZQMM SIGMOIDOSCOPYLicking Memorial Hospitaltart: 55-50-5389WJCIGWGDF B (1 of 3 - Risk 3-dose series)HEPATITIS B (1 of 3 - Risk 3-dose series)[facility]: 41-73-9323GZQKDSYH VACCINE (1 of 2)SHINGRIX VACCINE (1 of 2)[facility] Start: 17-85-6663Fnbso microalbumin profileCleSelect Medical Special[facility]hilltart: 09-[facility]-1989 ANNUAL PCP TEAM CHRONIC DISEASE VISITANNUAL PCP TEAM CHRONIC DISEASE VISIT [facility]: 04-89-2253Ojoygnu ScreeningAnxiety ScreeningLicking Memorial Hospitaltart: 57-16-5714GN CONTROLLED (<130/80)BP CONTROLLED (<130/80)[facility]: 54-81-1083Vgllovjcbh ScreeningDepression ScreeningCoshocton Regional Medical Center Start: 52-05-8671Peqdksdoo B surface antibody levelLDL CHOLESTEROLLicking Memorial Hospitaltart: 51-70-6599SKYOGYIGH C SCREENINGHEPATITIS C SCREENINGLicking Memorial Hospitaltart: 19-83-0220Vxvrvcpno C screeningHepatitis C ScreeningLicking Memorial Hospitaltart: 98-89-4412FFK SCREENINGHIV SCREENINGLicking [facility] Hospitaltart: 33-97-2424GGQ screeningHIV ScreeningLicking Memorial Hospitaltart: 67-00-1288UTZ PNEUMOVAX PRIOR TO AGE 65ONE PNEUMOVAX PRIOR TO AGE 66[facility]: 79-39-9791Nwgwm depression screening assessmentDEPRESSION SCREENINGLicking Memorial Hospitaltart: 09-05-19813 comp foot exam completedDIABETIC FOOT EXAMLicking Memorial Hospitaltart: 73-30-8141Oxvjpltw foot examinationDiabetic Foot ExamLicking [facility] Hospitaltart: 99-89-9957Nkfoyooes B screeningURINE ALBUMIN:CREATININE RATIO [facility]: 42-98-0077Nsvwafyxs C antibody, confirmatory testDILATED RETINAL EXAMLicking Memorial Hospitaltart: 86-16-2098XVUYLYHYYIHK (1 - PCV)PNEUMOCOCCAL (1 - PCV)[facility]: 47-26-7173Bdtettffqaip vaccinationPneumococcal Vaccine (1 - PCV)[facility]: 97-67-9536Idcmmzvtse A1c measurement MpO6EUhbzsupwvLicking Memorial Hospitaltart: 18-17-9531Tilozpxlej A1c/Hemoglobin.total in Blood NYK0ZWdkgbyzthLicking Memorial Hospitaltart: 15-26-0447MHUAFKNTZ B (1 of 3 - 3-dose series) HEPATITIS B (1 of 3 - 3-dose series)[facility]: 67-24-8887Nxjyvlaky B Vaccine (1 of 3 - 3-dose series)Hepatitis B Vaccine (1 of 3 - 3-dose series) [facility]: 51-53-4063Rscyspifg for malignant neoplasm of colonNOMS HealthcareSURGICAL PATHOLOGYSURGICAL PATHOLOGY Lab Routine Penile intraepithelial neoplasia 08/23/2021 4:30 PM [facility] Work Phone: [facility] Immunizations Immunization DateImmunizationNotesCare EomktlfoQrjvrulm18-14-4881hpgtzbfzn virus vaccine, unspecified formulationHallie Rodriguez CODING SUPPORT SPECIALIST.SURVEILLANCE OFFICER Work Phone: c[facility] - AndersonQhkdwl02-24-6249ALAU-LtW-4 (COVID-19) mRNAMUL.ORD!m80520Wipskks COOK [facility]08-05-2022influenza virus vaccine, unspecified formulationBrucehansel Hernandez [phone]-JlalhGreene [facility] Hospital08-05-2022 pneumococcal 20-valent conjugate vaccinehansel Ng [phone]-EpkteGreene Memorial Hospital08-05-2022 zoster vaccine recombinantJody Tavaresmetz [phone]-NxsleGreene [facility] Hospital05-27-2022 SARS-CoV-2 mRNA (xbigsyyolsn-walg-dvtntfq) vaccineBrucehansel Hernandez [phone]-PtgcrGreene Memorial Hospital05-27-2022 tetanus toxoid, reduced diphtheria toxoid, and acellular pertussis vaccine, adsorbedBehansel TavaresHernandez [phone]-VbtqxGreene [facility] Hospital05-27-2022 zoster vaccine recombinantJody Tavaresmetz 859-4516Bthywl-JrvaeGre[facility] Hospital10-28-2021 influenza virus vaccine, unspecified formulationBrucehansel Ng [phone]-TplftGreene [facility] Hospital10-15-2021 SARS-CoV-2 (COVID-19) mRNA BNT-162b2 vaxBmorgan Ng [phone]-UynqoGreene Memorial Hospital04-16-2021 COVID-19, mRNA, LNP-S, PF, 30 mcg/0.3 mL dose; Translations: [Pfizer-BioNTech COVID-19 Vaccine]Yana BROWNING [phone]-ChllqMemorial [facility] Comsbsz on above:Reason for Medication: Prophylaxis 75-84-6629ULYTH-19, mRNA, LNP-S, PF, 30 mcg/0.3 mL dose; Translations: [Pfizer- BioNTech COVID-19 Vaccine]Yana BROWNING [phone]-FefrlMemorial Health System [facility] Comment on above:Reason for Medication: Prophylaxis 33-11-1022glmwkycao virus vaccine, unspecified formulationBehansel Ng [phone]-IveapGreene Memorial Hospital02-04-2004 hepatitis A and hepatitis B vaccineBeth Hernandez [phone]-HrnvmGreene [facility] Hospital08-20-2003 hepatitis A and hepatitis B vaccineBeth Radio Rebel [phone]-DgqjkGre[facility] Hospital08-19-2003 varicella virus vaccineBeth Radio Rebel [phone]-SzcdqGreene [facility] Hospital07-18-2003 hepatitis A and hepatitis B vaccineBeth Hernandez [phone]-OzmfmMemorial Health [facility] Eixkcb04-75-4892 measles, mumps and rubella virus vaccineBeth Hernandez [phone]-GgvzxMemorial Health System [facility] Hpgmnj02-40-0943 varicella virus vaccineBeth Hernandez [phone]-YtqzgMemorial Health [facility] Health Payers DatePayer CategoryPayerPolicy [id number] Health InsuranceAETNA AETNA ASA GENERIC [id number] 2021-Present [phone] [address] [address] [place] [address] [id number] Health Insurance [id number] MMO SUPERMED PLUS [id number] 2018-Present [phone] [address] [place] [address] [id number] 1.2.840.654359.1.13.159.2.7.3.835[id number] 2.16.840.1.256905.3.57[id number] 2.16.840.1.169432.3.57[id number] 2.16.840.1.588547.3.57[id number] 2.16.840.1.138284.3.57[id number] 2.16.840.1.824415.3.57[id number] 2.16.840.1.462484.3.57[id number] 2.16.840.1.158611.3.57[id number] 2.16.840.1.870796.3.579.2.07090-35-4261Pimy-[id number] [id number] Health Insurance Trinity Health [id number] [id number] Social History DateTypeDetailFacilityStart: 05-31-2021 End: 43-13-1438Srbuzad smoking status NHISNever smoked tobaccoCoshocton Regional Medical Center Start: 05-31-2021 End: 14-73-1347Jtotkye use and exposureSmokeless tobacco non-userLicking Memorial Hospitaltart: 07-09-2021 End: 90-93-1870Sniybka intakeEx-drinker (finding)[facility]: 69-40-5200Eia Assigned At BirthLakeHealth Beachwood Medical Centertart: 07-03-2021 End: 19-34-9222Upmwkxep to SARS-CoV-2 (event)Not sureCoshocton Regional Medical CenterTobao smoking statusNeThe Surgical Hospital [facility] Start: 09-14-2022 End: 47-70-4507Xsq Assigned At [facility] Start: 09-14-2022 End: 81-03-9238Odkraru of Social functionLicking Memorial Hospitaltart: 20-67-8255Agzzdk identityIdentifies as male gender (finding)[facility]: 09-10-2023 Tobacco smoking status NHISTobacco smoking consumption unknownNONM Healthcare Start: 63-76-9413Dzy assigned at birthNot on fileINTERMOUNTAIN HEALTHCARE HealthcareStart: 84-18-9871DfkKnzp (finding)[facility] Medical Equipment Procedure CodeEquipment CodeEquipment Original TextEquipment IdentifierDates Start: 09-01-9444Ocmpp Sugar Diagnostic (True Metrix Glucose Test Strip) strip Start: 25-26-1224Xpdpvek (Trueplus Lancets) 28 gauge miscStart: 06-19-2024 Syringe With Needle (Bd Luer-Juan Jose Syringe) 3 mL 21 gauge x 1 1/2 syringeStart: 79-10-1404Smiln Sugar Diagnostic (True Metrix Glucose Test Strip) stripStart: 65-65-0459Uwnisis (Trueplus Lancets) 28 gauge miscStart: 54-58-5910Nkddhof With Needle (Bd Luer-Juan Jose Syringe) 3 mL 21 gauge x 1 1/2 syringeStart: 06-19-2024 Functional Status AblnHtqelnunscRhuiqzYrjcdgmf93-55-0844Rlgtguaszm StatusN/AExec[facility] of [facility] Yifjpbil79-19-6329Bsfwpfrypa StatusN/AExec[facility] of [facility] Ybqxacr55-69-0083Tnyglumegp StatusN/A [facility] Xgspvx75-89-3580Pnztjangjv StatusN/[facility]07-11-2022Functional StatusN/[facility] Clinical Notes 07-19-2021 to 01-16-2025 Note Date & PgrgRscoPwxsqbol18-10-6471 NoteHNO ID: [id number] Author: JOURDAN FRIAS APRN.SURVEILLANCE OFFICER Service: ? 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 Dr. Cardona did excisional biopsy of glans penis, biopsy of ventral mid to proximal penile skin lesion, and takedown of distal penile skin adhesions on 07/13/2021. Pathology was benign on the glans and distal penis but PeIN on mid ventral to proximal shaft biopsy. Fidel Lara underwent re-excision in [facility] on 08/23/2021 (1.6cm x 1cm specimen) which returned squamous hyperplasia with hyperkeratosis. Fidel Lara had excision of 3 mm ventral penile lesion in [facility] on 01/02/2023, with pathology showing benign penile tissue with mild hyperkeratosis and minimal chronic inflammation. Fidel Lara was last seen on 01/17/2024: Encouraged him to restart clobetasol cream if itching and visible skin changes recur. Encouraged him to call office if he notices lesions that do not improve with clobetasol cream. Otherwise, he can RTC in 1 year. The patient is a 54-year-old male with history of penile cancer and diabetes mellitus, presenting for follow-up of penile cancer. The patient is a 54-year-old male with a history of penile cancer, presenting for a follow-up visit. The patient reports no new skin issues since his last visit approximately one year ago. He used clobetasol cream once in early September for mild pruritus, which resolved after a single application. He has a nearly full tube of the cream remaining. He denies any urinary symptoms, including changes in urinary stream or frequency. He continues to use Viagra for erectile dysfunction, prescribed by another physician, and reports it is effective. He is also on testosterone injections, administering 0.75 mL once weekly, with the last lab work for testosterone levels conducted in August at his family doctor's office. The patient has lost approximately 5 lbs over the past year, attributing the weight loss to dietary changes and the use of Ozempic. He is also taking Jardiance and Janumet for diabetes management. His blood glucose level was 123 mg/dL this morning. Recording using Clue App software for draft documentation of the visit was discussed with the patient/authorized pharmaceutical service representative; all questions welcomed and answered. Patient/authorized pharmaceutical service representative agreed to proceed URINE POC GLUCOSE UA (POCT) >=1000 01/16/2025 BILIRUBIN UA (POCT) Negative 01/16/2025 KETONE UA (POCT) Negative 01/16/2025 SPECIFIC GRAVITY UA (POCT) 1.015 01/16/2025 HEMOGLOBIN/BLOOD UA (POCT) Negative 01/16/2025 PH UA (POCT) 7.5 01/16/2025 PROTEIN UA (POCT) Negative 01/16/2025 UROBILINOGEN UA (POCT) 0.2 01/16/2025 NITRITE UA (POCT) Negative 01/16/2025 LEUKOCYTES UA (POCT) Negative 01/16/2025 COLOR UA (POCT) Yellow 01/16/2025 CLARITY UA (POCT) Clear 01/16/2025 PAST MEDICAL HISTORY Diagnosis Date Glaucoma suspect High cholesterol Hypertension Type 2 diabetes mellitus (HCC) PAST SURGICAL HISTORY Procedure Laterality Date PAST SURGICAL HISTORY OF lesions removed from penis PAST SURGICAL HISTORY OF testical removed due to cancer SOCIAL HISTORY[1] Current Outpatient Medications Medication Sig Dispense Refill testosterone cypionate (DEPO-TESTOSTERONE) 200 mg/mL injection Inject 0.75 mL intramuscularly one time a week. emtricitabine-tenofovir disoproxil fumerate (TRUVADA) 200-300 mg per tablet semaglutide (OZEMPIC) 0.25 mg or 0.5 mg(2 mg/1.5 mL) pen Inject 1 mg subcutaneously one time a week. modafinil (PROVIGIL) 200 mg tablet Take 1 tablet by mouth once daily. clobetasol (TEMOVATE) 0.05 % cream Apply to affected area two times a day. Use for a week at a time as needed 45 g 3 fexofenadine (VERONICA) 180 mg tablet Take 180 [...] meals. syringe w-needle,disposab,3 mL (MONOJECT 3CC SYR 05UP2-4/2 MISC) No current facility-administered medications for this (more content not included)...[facility]09-25-2025 NotePatient Outreach (UROLMN) FIDEL LARA ([id number]) 1970 M Date Time Provider Department 01/16/25 JOURDAN FRIAS During your visit today, we recorded the following information about you: Allergies As of Date: 01/16/2025 Noted Allergy Reaction ASPRIN (ASPIRIN) 05/31/2021 7 - Swelling IBUPROFEN 05/31/2021 7 - Swelling Date Reviewed: 01/16/2025 Reviewed by: Jessie Mukherjee MA - Fully Assessed Visit Diagnosis:Screening for genitourinary condition [Z13.89] Order(s):UA DIP, URINE (POC) [4817122] Order #: [id number] FUTURE Prescriptions as of 01/20/2025 - testosterone cypionate (DEPO-TESTOSTERONE) 200 mg/mL injection Inject 0.75 mL intramuscularly one time a week. 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 Oarrs reviewed due now [facility] HospitalKofbsttbrg94-84-3047 Miscellaneous Notes* Telephone Encounter - Skylar Salomon MA - 09/17/2024 3:16 PM EDT Nazia from [facility] states the patient called there for a refill on Ritalin 5mg. Oarrs reviewed due now documented in this [facility]11-27-2024 Telephone encounter Note* Telephone Encounter - Annmarie Benoit DO - 03/20/2024 8:52 AM EST Patient needs a rfill on his Provigil [facility] HospitalAhnqmgmmzt32-90-5098 Miscellaneous Notes* Telephone Encounter - Annmarie Benoit DO - 03/20/2024 8:52 AM EST Patient needs a rfill on his Provigil documented in this [facility]09-25-2024 History of Present illness Narrative* Jourdan Frias, CODING SUPPORT SPECIALIST.SURVEILLANCE OFFICER - 01/17/2024 10:52 AM EDT HPI: Fidel Lara is a 53 year old male with history of T2DM, HTN, HLD, embryonal cell carcinoma s/pright radical orchiectomy in 2001, lateral glans penile lesion s/p punch biopsy locally on 05/13/2021 with path 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 Dr. Cardona did excisional biopsy of glans penis, biopsy of ventral mid to proximal penile skin lesion, and takedown of distal penile skin adhesions on 07/13/2021. Pathology was benign on the glansand distal penis but PeIN on mid ventral to proximal shaft biopsy. Fidel Lara underwent re-excision in [facility] on 08/23/2021 (1.6cm x 1cm specimen) which returned squamous hyperplasia with hyperkeratosis. Fidel Lara had excision of 3 mm ventral penile lesion in [facility] on 01/02/2023, with pathology showingbenign penile tissue with mild hyperkeratosis and minimal [...] day. Use for a week at a timeas needed 45 g 3 testosterone cypionate (DEPO-TESTOSTERONE) [...] meals. syringe w-needle,disposab,3 mL (MONOJECT 3CC SYR 43PH9-7/2 MISC) No current facility-administered medications for this [...] discussed with the Patient or Patient's Authorized Crutcher Helper. Asapplicable, any other physician, advance practice provider, medical student, or other health professional student that will be observing or involved in the sensitive examination for educational or training purposes was discussed with the Patient or Authorized Crutcher Helper. The Patient or Authorized Crutcher Helper has agreed to proceed with the sensitive [...] can RTC in 1 year. Jourdan Frias APRN.PRISCILLA documented in this encounterCoshocton Regional Medical Center03-20-2024 History of Present illness Narrative* Jourdan Frias APRN.CNP - 07/12/2023 9:36 AM EDT HPI: Fidel Lara is a 52 year old male with history of T2DM, HTN, HLD, embryonal cell carcinoma s/pright radical orchiectomy in 2001, lateral glans penile lesion s/p punch biopsy locally on 05/13/2021 with path 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 Dr. Cardona did excisional biopsy of glans penis, biopsy of ventral mid to proximal penile skin lesion, and takedown of distal penile skin adhesions on 07/13/2021. Pathology was benign on the glansand distal penis but PeIN on mid ventral to proximal shaft biopsy. Fidel Lara underwent re-excision in [facility] on 08/23/2021 (1.6cm x 1cm specimen) which returned squamous hyperplasia with hyperkeratosis. Fidel Lara had excision of 3 mm ventral penile lesion in [facility] on 01/02/2023, with pathology showingbenign penile tissue with mild hyperkeratosis and minimal [...] day. Use for a week at a timeas needed 45 g 3 testosterone cypionate (DEPO-TESTOSTERONE) [...] meals. syringe w-needle,disposab,3 mL (MONOJECT 3CC SYR 26CR2-3/ [facility]) No current facility-administered medications for this visit. PHYSICAL EXAM: There were no vitals taken for this visit. GENERAL: Wnl nutrition, no deformities, healthy appearing. ABDOMEN: Not examined. GENITOURINARY: MALE EXAM: No scrotal lesions, cysts, rashes. Urethra & meatus normal size &position w/o lesion or discharge. Penis is hidden [...] or sooner PRN. Reminded him that he canreach out via MyChart (including pictures) if concerning lesions develop before next visit. Jourdan Frias APRN.PRISCILLA documented in this encounterCoshocton Regional Medical Center09-19-2023 Miscellaneous Notes* Telephone Encounter - Edgar Cardona MD - 01/10/2023 6:37 PM EDT I phoned patient with pathology report, the lesion we removed was benign. He was appreciative of the call. He prefers to follow-up here, and therefore will arrange appointment in 6 months with Sylvia. He will call if any problems in the interim. Edgar Cardona MD documented in this encounterCoshocton Regional Medical Center08-16-2023 History of Present illness Narrative* Edgar Cardona MD - 12/07/2022 1:04 PM EDT HPI: Fidel Lara is 52 year old [...] proximal shaft biopsy). He underwent re-excision in [facility] on 08/23/21 (1.6cm x 1cm specimen) which [...] meals. syringe w-needle,disposab,3 mL (MONOJECT 3CC SYR 19GI6-3/2 MIS) No current facility-administered medications on file prior [...] proximal shaft biopsy). He underwent re-excision in [facility] on 08/23/21 (1.6cm x 1cm specimen) which returned squamous hyperplasia with hyperkeratosis. Patient now presenting with a single small genital wart on left ventral surface just proximal to glans penis. Genital wart on penis - Discussed with patient the treatment option of excision of lesion under local. Will plan to schedule patient in [facility] for excision. 2. Lichen Sclerosis, controlled - continue clobetasol PRN Isabel Dickey MD Attending Note I evaluated the patient and personally participated in the simon components. I agree with the resident's findings and plan as documented and have discussed the case and management of the patient's carewith the resident. Patient presents for evaluation of [...] expectations, recovery. Patient agrees to proceed. Signature: dEgar Cardona MD Date: 12/07/2022 Time: 2:04 PM documented in this encounterCoshocton Regional Medical Center05-31-2023 History of Present illness Narrative* Rafaela Nova MD - 09/21/2022 12:47 PM EDT Tmax 16, 14 Pachy 561, [...] of its relevant components. documented in this encounterCoshocton Regional Medical Center04-24-2023 Nurse Note* Skyla Wetzel RN - 08/15/2022 1:43 PM EDT 1339 - Dr Cardona in to assess patient. Patient is on the exam table and prepped per protocol. After examination, Dr Cardona cancelled the procedure and will send the patient home with a prescription for any future flareups. Patient verbalized understanding and agrees to the plan of care. 1348 - Escorted patient to the lobby without incident. * Lucy Siu RN - 08/15/2022 1:25 PM EDT Actual procedure/procedure scheduled: Yes Performing provider/scheduled provider: Yes Patient was roomed in: Q9- 06 Internet Sales Manager offered:Patient declines Patient arrived in the room [...] None Lucy Gunderson RN documented in this encounterCoshocton [facility]04-24-[facility]23 History of Present illness Narrative* Edgar Cardona MD - 08/15/2022 1:18 PM EDT HPI: Epic notes reviewed. PMH of T2DM, [...] proximal shaft biopsy). He underwent re-excision in [facility] on 08/23/21 (1.6cm x 1cm specimen) which [...] meals. syringe w-needle,disposab,3 mL (MONOJECT 3CC SYR 21KE5-8/2 MISC) No current facility-administered medications on file prior to visit. ROS: Constitutional: negative Gastrointestinal: negative PHYSICAL EXAM: There were no vitals taken for this visit. GENERAL: Wnl nutrition, no deformities, healthy appearing ABDOMEN: Soft, nontender, nondistended GENITOURINARY: MALE EXAM: Penis is circumcised, the shaft skin has the appearance diffusely of mildlichen sclerosis. There are no visible lesions today [...] repeat physical exam in 6 months. Edgar Cardona MD documented in this encounterCoshocton [facility] Center03-20-2023 History of Present illness Narrative* Edgar Cardona MD - 07/11/2022 8:18 AM EDT HPI: : 51yo male with PMH of T2DM, HTN, HLD, embryonal cell carcinoma s/p right radical orchiectomyin 2001, lateral glans penile lesion s/p punch biopsy 05/13/21 locally with path showing low grade penile squamous intraepithelial neoplasia s/p excisional biopsy of glans penis, biopsy of ventral midto proximal penile skin lesion and takedown of distal penile skin adhesions on 07/13/21 (path: benign on the glans and distal penis but PeIN on mid ventral to proximal shaft biopsy). He underwent re-excision in [facility] on 08/23/21 (1.6cm x 1cm specimen) which returned squamous hyperplasia with hyperkeratosis. Fidel Lara was last seen by Dr. Cardona on 03/23/2022 with plan to follow locally with Dr. Amarofor PSA and penile exam, and to follow [...] has resolved. Pain with intercourse was worse whenthere was active swelling. Now it is still [...] meals. syringe w-needle,disposab,3 mL (MONOJECT 3CC SYR 88MT1-5/2 MISC) No current facility-administered medications on file [...] carcinoma s/p right radical orchiectomy in 2001, lateralglans penile lesion s/p punch biopsy 05/13/21 locally with path showing low grade penile squamous intraepithelial neoplasia, s/p excisional biopsy of glans penis, biopsy of ventral mid to proximal penile skin lesion and takedown of distal penile skin adhesions on 07/13/21 (path: benign on the glans and distal penis but PeIN on mid ventral to proximal shaft biopsy). He underwent re-excision in [facility] on 08/23/21 (1.6cm x 1cm specimen) which [...] as bad. He also lump on the bottomof shaft. Hard to the touch. This was [...] reddened lesion on the ventral aspect of thepenis. Questions were answered and patient agrees with [...] medically appropriate examination, counseling and educating the pat ient/family/caregiver, ordering medications, tests, or procedures, and care coordination. Signature: Edgar Cardona MD documented in this encounterCoshocton [facility] Center02-03-2023 Hospital Discharge instructions Patient Education 05/27/2022 15:16:46 [...] very early stages, before it spreads and becomesharder to treat and before you would start [...] exam in which a health care provider usesa gloved finger to check prostate size (digital [...] a flexible tube with a small camera isinserted into the rectum. CT colonography. This test uses X-rays and a contrast dye to check the colon for polyps. If a polypis found, you may need to have a [...] if anything looks unusual. Men with a vbvweh-oonm-rnbuge risk for skin cancer may want to see a skin diver (skating rink ice maker) for an annual body check. Where to find more information National Cancer [facility]: https://www.cancer.gov/about-cancer/screening Centers for Disease Control and Prevention: https://www.cdc.gov/cancer/dcpc/prevention/screening.htm [place] [employer]: https://www.cancer.org/latest-news/2-yiotjh-gusqntolq-rlitg-bzo-pbm.html Contact a health care provider if: You [...] 01/05/2017 Document Revised: 12/28/2018 Document Reviewed: 01/05/2017 [employer] Patient Education 2020 [place]oon. Follow Up Care 05/23/2022 09:05:14 With:ENDER VELEZ, Estrella Lim, URL Address: [facility] [employer] [facility] [address] [place] [address]- When: Unknown [facility] Katie [phone] History of Present illness Narrative* Edgar Cardona MD - 03/23/2022 1:21 PM EST HPI: 51yo male with PMH of T2DM, [...] proximal shaft biopsy). He underwent re-excision in [facility] on 08/23/21 (1.6cm x 1cm specimen) which [...] route. syringe w-needle,disposab,3 mL (MONOJECT 3CC SYR 69WT2-4/2 MISC) No current facility-administered medications on file [...] exam with local urologist - see back TALIBN Dre Arango MD Attending Note I evaluated the patient and personally participated in the simon components. I agree with the resident's findings and plan as documented and have discussed the case and management of the patient's carewith the resident. Patient presents for follow-up, has been doing well, denies pain in the genital region and is pleased with outcome of surgery. He described a couple of recent PSA values with us, 1 was elevated after a long car ride and then afollow-up was apparently normal, he was asking about [...] to clinic here as needed. Signature: Edgar Cardona MD Date: 03/23/2022 Time: 5:34 PM documented in this encounterCoshocton [facility] Center11-03-2022 Hospital Discharge instructions Patient Education 02/24/2022 12:24:35 [...] label of any prepackaged food. Look for foodsthat contain 5 g of fiber or more per serving. Talk with a diet and public health nutritionist (dietitian) if you have questions about specific [...] Bulgur wheat. Millet. Quinoa. Bran muffins. Popcorn. Marshall wafer crackers. Meats and other proteins [place], kidney, and yañez beans. Soybeans. Split peas. [...] Cream cheese. Sour cream. Fats and oils Grenelefe. Beverages Soft drinks. Other foods Cakes and [...] 04/10/2006 Document Revised: 02/12/2018 Document Reviewed: 02/12/2018 [employer] Patient Education 2020 Lagoon. 02/24/2022 12:24:34 Hemorrhoids Hemorrhoids Hemorrhoids are swollen [...] help the symptoms, procedures can be done toshrink or remove the hemorrhoids. What are the [...] Other exams or tests may also be done,such as: An exam that involves feeling the [...] do not help your symptoms. These procedures canhelp make the hemorrhoids smaller or remove them completely. Some of these procedures involve surgery, and others do not. Common procedures include: Rubber band ligation. Rubber bands are placed at the base of the hemorrhoids to cut off their bloodsupply. Sclerotherapy. Medicine is injected into the hemorrhoids [...] 3 times a day. General instructions Take ncur-sou-sxbvlzk and prescription medicines only as told by [...] 04/07/2001 Document Revised: 2019 Document Reviewed: 08/30/2018 [employer] Patient Education 2020 Lagoon. 02/24/2022 12:24:31 Diverticulosis Diverticulosis Diverticulosis is a condition that develops when small pouches (diverticula) form in the wall of the large intestine (colon). The colon is where water is absorbed and stool is formed. The pouches form when the inside layer of the colon pushes through weak spots in the outer layers of the colon. Youmay have a few pouches or many of [...] overweight. Not getting enough exercise. Smoking. Taking iuwb-efa-bxztjsh pain medicines, like aspirin and ibuprofen. Having [...] health care provider or your diet and public health nutritionist (dietitian). ?Take a fiber supplement or probiotic, if your health care provider approves. Take mccz-tdf-amqgath and prescription medicines only as told by [...] 01/05/2005 Document Revised: 03/23/2018 Document Reviewed: 02/27/2017 [employer] Patient Education 2020 Lagoon. 02/24/2022 12:24:30 Colon Polyps Colon Polyps Polyps [...] 01/04/2005 Document Revised: 07/26/2018 Document Reviewed: 07/26/2018 [employer] Patient Education 2020 Lagoon. Follow Up Care 12/20/2021 15:14:06 With:Jody Ng CNP Address: When:1 year only if needed [facility] 08-17-2022 Hospital Discharge instructions Patient Education 12/08/2021 14:18:11 [...] colon so that bowel contents can move througheasily. You should eat 20 to 35 grams [...] corn, and seeds. This has not been foundto be true. If you find that certain foods create cramping or bloating, avoid that food. Foods high in fiber include: Fresh fruits, fresh vegetables, legumes (beans), whole wheat bread, bran muffins or cereal, and nuts. See the table below for examples of high fiber foods. Remember, your goal is 20- 35 grams per day. Amount of fiber in different foods Food Serving Grams of fiber Fruits Apple (with skin) 1 medium apple 4.4 Banana 1 medium banana 3.1 Oranges 1 orange 3.1 Prunes 1 cup, pitted 12.4 Juices Apple, unsweetened, w/added ascorbic acid 1 cup 0.5 Grapefruit, white, canned, sweetened 1 cup 0.2 Grape, unsweetened, w/added ascorbic acid 1 cup 0.5 [place] 1 cup 0.7 Vegetables Cooked Green beans 1 cup 4.0 Carrots 1/2 cup sliced 2.3 Peas 1 cup 8.8 Potato (baked, with skin) 1 medium potato 3.8 Raw [place] (with peel) 1 cucumber 1.5 Lettuce 1 [...] 8.7 Peanuts 1/2 cup [address] [facility] 2013. SEEK IMMEDIATE MEDICAL CARE IF: You [...] of Agriculture (USDA) National Nutrient Database at: http://www.nal.usda.gov/fnic/foodcomp/search/ Created using data from the USDA National Nutrient Database for Standard Reference. Available at http://www.Sidense.usda.gov/fnic/foodcomp/search/. Information adapted from: [facility] Patient Information 2009 [employer]. [employer] 2012 http://www.[facility]/contents/ymlleiyjuicj-iloortl-jkwvxs-the-basics 12/08/2021 14:18:11 Hemorrhoids, Ppeg-ek-Fcbw Hemorrhoids Hemorrhoids are swollen veins that may [...] 3 4 times a day. You may dothis in a bathtub or using a portable sitz bath that fits over the toilet. If told, put ice on the painful area. It may be helpful to use ice between your warm baths. ?Put ice in a plastic bag. ?Place a towel between your skin and the bag. ?Leave the ice on for 20 minutes, 2 3 times a day. General instructions Take tpat-rrt-pqbrizg and prescription medicines only as told by [...] 01/17/2009 Document Revised: 04/18/2019 Document Reviewed: 08/30/2018 [employer] Patient Education 2020 Lagoon. 12/08/2021 14:18:11 Colon Polyps Colon Polyps Polyps [...] 01/04/2005 Document Revised: 07/26/2018 Document Reviewed: 07/26/2018 [employer] Patient Education 2020 Mtime Follow Up Care 11/01/2021 16:10:24 With:Vivian SOTELO Address[facility] [address] [place], [place] [address] [address] [place] [address] [facility] (1[employer] When:1 to 2 weeks Comments:Call for any problems. Office will call to schedule follow up appointment [facility]08-17-2022 Evaluation + Plan noteExtracted from: Title:Post-anesthesia - GeneralAuthor:Long Hightower Jr., DO GDate:12/08/21 Plan Transfer/ Discharge: Condition stable. Extracted from:Title:Pre-anesthesia - EndoscopyAuthor:Long Hightower Jr., DO Date:12/08/21 Plan [place] Society of Anesthesiologists (ASA) physical status classification: Class III. Anesthetic Preoperative Plan Anesthesia: General. . Anesthetic plan, risks, benefits, and alternatives discussed with the patient and/or family. Patient verbalized understanding. Future Appointments Appointment Date:03/15/2022 03:30:00 PM Scheduled Provider:ALEAH DUNCAN PA-C Location:[facility] Appointment Type:URO Office Visit [facility]07-11-2022 Hospital Discharge instructions Patient Education 11/01/2021 15:49:51 [...] including vitamins, herbs, eye drops, creams, and abrs-qki-kzrpauh medicines. Any problems you or family members [...] 04/07/2001 Document Revised: 01/31/2018 Document Reviewed: 06/21/2016 [employer] Patient Education 2020 Lagoon. Follow Up Care 10/04/2021 15:12:36 With:Jody Ng CNP Address: When:2 to 4 weeks [facility] [phone] Miscellaneous Notes* Telephone Encounter - Brendon Chatterjee [facility] - 10/09/2021 11:44 AM EDT Patient was scheduled and seen * Telephone Encounter - Brendon Chatterjee [facility] - 08/23/2021 10:43 AM EDT Called and LVM for patient to call back and schedule with Dr. Nova for glaucoma evaluation. Referral scanned in documented in this encounterCoshocton Regional Medical Center06-17-2022 Miscellaneous Notes* Telephone Encounter - Bailey Mendoza Adm - 10/08/2021 1:42 PM EDT 10/08/2021 Faxed [facility] paper work to [phone]. Received confirmation of 2 pages received. Emailed copy of form and confirmation to patient. documented in this encounterCoshocton Regional Medical Center05-27-2022 History of Present illness Narrative* Jass Vogt [...] underwent excision of ventral penile skin in [facility] on 08/23/2021. Path negative. Pt here for [...] route. syringe w-needle,disposab,3 mL (MONOJECT 3CC SYR 01JR0-9/2 MISC) No current facility-administered medications on file [...] underwent excision of ventral penile skin in [facility] on 08/23/2021. Path negative and again reviewed with patient. No evidence of disease on exam today. RTC in 6 months for exam Encouraged ongoing weight loss, local hygiene Jass Vogt MD documented in this encounterCoshocton Regional Medical Center05-16-2022 History of Present illness Narrative* Rafaela Nova [...] of its relevant components. documented in this encounterCoshocton Regional Medical Center05-15-2022 Hospital Discharge instructions Follow Up Care 09/05/2021 12:29:41 With:Jasmeet Martinez CNP Address: [address] [place] [address], [address] [place] [id number]- When:5 to 7 days only if needed [facility] [phone] Evaluation + Plan note Diagnostic Tests Pending * Wound Culture 09/05/21 [facility]05-05-2022 Miscellaneous Notes* Telephone Encounter - Jass Vogt MD - 08/26/2021 12:11 PM EDT Spoke to pt about biopsy path results. Follow up in 3 weeks documented in this encounterCoshocton Regional Medical Center05-02-2022 Procedure note* Edgar Cardona MD - 08/23/2021 6:28 PM EDT PROCEDURE REPORT Surgery/Procedure Date: 08/23/2021 Surgeon(s)/Proceduralist(s) and Bar Steward(s): Edgar Cardona MD Procedure(s): Excision of penile lesion Anesthesia: [...] performed the procedure with assistance. SIGNATURE: Edgar Cardona MD PATIENT NAME: Fidel Lara DATE: August 23, 2021 TIME: 6:30 PM CONTACT #: [phone] documented in this encounterCoshocton Regional Medical Center05-02-2022 History of Present illness Narrative* Yohannes Byrnes [...] applicable. Yohannes Byrnes RN documented in this encounterCoshocton Regional Medical Center05-02-2022 Nurse Note* Yohannes Byrnes RN - 08/23/2021 [...] not applicable Electrosurgical Unit: Yes: Unit # [id number], Pad # [id number], Pad location left thigh , Site condition [...] Home going Prescriptions given: No Discharge Time: 1644 Yohannes Byrnes RN PATIENT EDUCATION The following was evaluated; Motivation to Learn: Interested Family/Significant Other Support: None - Unavailable/disinterested Cognitive Ability: Alert/Oriented Method of Instruction: Individual instruction Written instruction - handouts Verbal instruction The Following Influencing Factors Were Barriers To This Education Session: None The Following Physical Limitations Were Barriers To This Education Session: None Instruction Provided To: Patient Study Director Present: not applicable Discipline: Nursing Learning Topic: Survival Skills- Symptom Management Patient Evaluation: Verbalizes understanding: Yes Supplemental Material Given: Written Material Instructed By Yohannes Byrnes RN In Department Urology. documented in this encounterCoshocton Regional Medical Center04-21-2022 Miscellaneous Notes* Telephone Encounter - Bailey John - 08/12/2021 2:39 PM EDT [facility] paperwork faxed to [phone] 07/16/2021 4:59 pm. Received confirmation of 5 pages received documented in this encounterCoshocton Regional Medical Center03-28-2022 Miscellaneous Notes* Telephone Encounter - Edgar Cardona MD - 07/19/2021 6:27 PM EDT I [...] that we can do this in the [facility] area with local anesthesia and he is okay with this. We will make the arrangements. Edgar Cardona MD documented in this encounterMer[facility] [place] + Plan note Future Appointments Appointment Date:12/08/2021 01:50:00 PM Scheduled Provider: Location:[facility] Surgical Services Appointment Type:Surgery [facility] Evaluation + Plan note Future Appointments Appointment Date:03/15/2022 03:30:00 PM Scheduled Provider:ALEAH DUNCAN PA-C Location:[facility] Appointment Type:URO Office Visit [facility] Evaluation + Plan note Future Appointments Appointment Date:05/30/2022 08:45:00 AM Scheduled Provider:Estrella AMARO MD Location:[facility] Appointment Type:URO Office Visit [facility] Plan note Future Appointments Appointment Date:10/16/2023 01:15:00 PM Scheduled Provider: Location:.[place]ICAL [place] Appointment Type:[facility] Eval () [facility]* Diagnosis Screening for genitourinary condition Screening for other and unspecified genitourinary condition documented in this encounter [facility] note* Diagnosis Penile intraepithelial neoplasia- Primary Neoplasm of unspecified nature of other genitourinary organs Penile lesion Other specified disorder of penis Morbid obesity with BMI of 40.0-44.9, adult (HCC) Morbid obesity documented in this encounter [facility] [place] [facility]* Diagnosis Glaucoma suspect of both eyes- Primary Preglaucoma, unspecified documented in this encounter [facility]* Diagnosis Penile lesion Other specified disorder of penis documented in this encounter [facility] [place] [facility]* Diagnosis Screening for genitourinary condition Screening for other and unspecified genitourinary condition documented in this encounter [facility] [place] [facility]* Diagnosis Penile intraepithelial neoplasia- Primary Neoplasm of unspecified nature of other genitourinary organs Penile lesion Other specified disorder of penis documented in this encounter [facility] [place] [facility]* Diagnosis Penile lesion- Primary Other specified disorder of penis Penile intraepithelial neoplasia Neoplasm of unspecified nature of other genitourinary organs Hidden penis documented in this encounter [facility] [place] [facility]* Diagnosis Screening for genitourinary condition Screening for other and unspecified genitourinary condition documented in this encounter [facility] [place] [facility]* 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 documented in this encounter [facility] [place] [facility]* Diagnosis Glaucoma suspect of both eyes- Primary Preglaucoma, unspecified [facility] [place] [facility]* Diagnosis Penile lesion- Primary Other specified disorder of penis 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 documented in this encounter [facility] [place] [facility]* Diagnosis Screening for genitourinary condition Screening for other and unspecified genitourinary condition documented in this encounter [facility] [place] [facility]* 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 History of penile cancer Personal history of malignant neoplasm of other male genital organs documented in this encounter [facility] [place] [facility]* Diagnosis Screening for genitourinary condition Screening for other and unspecified genitourinary condition documented in this encounter [facility] [place] [facility]* Diagnosis Pre-op evaluation- Primary Preoperative examination, [...] male genital organs documented [facility] [place] [facility]* Diagnosis Pre-op evaluation- Primary Preoperative examination, [...] unspecified genitourinary condition documented in this encounter [facility] [place] [facility]* Diagnosis MILLY (obstructive sleep apnea)- Primary Obstructive sleep apnea (adult) (pediatric) Daytime hypersomnolence Snoring Other dyspnea and respiratory abnormality documented in this encounter [facility] [place] [facility]* Diagnosis Daytime hypersomnolence- Primary documented in this encounter [facility] [place] noteNo assessment information availableHolmes County Joel [facility] Work Phone: Evaluation note* Diagnosis Daytime hypersomnolence- Primary documented in this encounter [facility] Narrative No data available for this section [facility] Discharge instructions No data available for this section [facility] HospitalProgress note No data available for this section [facility] Reason for referral (narrative) , [facility] Referred by: Estrella AMARO MD [facility] Reason for referral (narrative)No reason for referral information availableHolmes County [facility] Work Phone: Medications Administered Section Medication OrderMAR ActionAction DateDoseRateSite cephALEXin 500 mg cap(s) (KEFLEX) 500 mg, ORAL, ONCE, 1 dose, On Mon08/23/21 at 1600, Please document the antimicrobial indication: Empiric Given08/23/2021 4:43 PM [id number] mgMedication OrderMAR ActionAction DateDoseRate Site fluorescein-benoxinate 0.25-0.4 % 1 Drop (FLURESS) 1 Drop, BOTH EYES, DIRECTED, Starting on Mon09/14/22 at 1300, Until Virginie 09/15/22 at 0059, Administer for applanation tonometry. In the event of a Fluress shortage, administer Dionne-Fluor 1 drop intoboth eyes as directed for applanation tonometry Given09/14/2022 1:00 PM EDT1 Drop PHENYLephrine 2.5 % 1 Drop (AK-DILATE, JJ-SYNEPHRINE) 1 Drop, BOTH EYES, DIRECTED, Starting on Mon09/14/22 at 1300, Until Virginie 09/15/22 at 0059, Administer for dilation PROTECT FROM LIGHT Given09/14/2022 1:00 PM EDT1 Drop tropicamide 1 % 1 Drop (MYDRIACYL) 1 Drop, BOTH EYES, DIRECTED, Starting on Mon09/14/22 at 1300, Until Virginie 09/15/22 at 0059, Administer for dilation Given09/14/2022 1:00 PM EDT1 Drop Summary Purpose Family History No Family History Records Found No data available for this section No Family History Records FoundNo Family History Records FoundNo Family History Records Found Advance Directives No Advanced Directives Records Found Advance Directive Response Recorded Date/ Time Advance Directives No May 3:17pm Advance Directive Response Recorded Date/ Time Advance Directives No May 4:17pm Chief Complaint and Reason for Visit Chief Complaint Admit Date cough, stuffy, heavy lungs May 3:22pm Reason for Visit Admit Date Daytime hypersomnolence November 27, 2024 3:25pm Obesity November 27, 2024 3:2 5pm MILLY (obstructive sleep apnea) November 3:25pm Snoring November 27, 2024 3:2 5pm Additional Source Comments Source Comments (unrecognize d section and content) In the event this informatio n is protected by the Federal Confidentiality of Alcohol and Drug Abuse Patient Records regulations: The Federal rules restrict any use of the information to criminally investigate or prosecute any alcohol or drug abuse patient.[facility] Center[facility] the event this information is protected by the Federal Confidentiality of Alcohol and Drug Abuse Patient Records regulations: The Federal rules restrict any use of the information to criminally investigate or prosecute any alcohol or drug abuse patient.[facility] CenterIn the event this information is protected by the Federal Confidentiality of Alcohol and Drug Abuse Patient Records regulations: The Federal rules restrict any use of the information to criminally investigate or prosecute any alcohol or drug abuse patient.[facility] CenterIn the event this information is protected by the Federal Confidentiality of Alcohol and Drug Abuse Patient Records regulations: The Federal rules restrict any use of the information to criminally investigate or prosecute any alcohol or drug abuse patient.[facility] CenterIn the event this information is protected by the Federal Confidentiality of Alcohol and Drug Abuse Patient Records regulations: The Federal rules restrict any use of the information to criminally investigate or prosecute any alcohol or drug abuse patient.[facility] CenterIn the event this information is protected by the Federal Confidentiality of Alcohol and Drug Abuse Patient Records regulations: The Federal rules restrict any use of the information to criminally investigate or prosecute any alcohol or drug abuse patient.[facility] CenterIn the event this information is protected by the Federal Confidentiality of Alcohol and Drug Abuse Patient Records regulations: The Federal rules restrict any use of the information to criminally investigate or prosecute any alcohol or drug abuse patient.[facility] CenterIn the event this information is protected by the Federal Confidentiality of Alcohol and Drug Abuse Patient Records regulations: The Federal rules restrict any use of the information to criminally investigate or prosecute any alcohol or drug abuse patient.[facility] CenterIn the event this information is protected by the Federal Confidentiality of Alcohol and Drug Abuse Patient Records regulations: The Federal rules restrict any use of the information to criminally investigate or prosecute any alcohol or drug abuse patient.[facility] CenterIn the event this information is protected by the Federal Confidentiality of Alcohol and Drug Abuse Patient Records regulations: The Federal rules restrict any use of the information to criminally investigate or prosecute any alcohol or drug abuse patient.[facility] CenterIn the event this information is protected by the Federal Confidentiality of Alcohol and Drug Abuse Patient Records regulations: The Federal rules restrict any use of the information to criminally investigate or prosecute any alcohol or drug abuse patient.[facility] CenterIn the event this information is protected by the Federal Confidentiality of Alcohol and Drug Abuse Patient Records regulations: The Federal rules restrict any use of the information to criminally investigate or prosecute any alcohol or drug abuse patient.[facility] CenterIn the event this information is protected by the Federal Confidentiality of Alcohol and Drug Abuse Patient Records regulations: The Federal rules restrict any use of the information to criminally investigate or prosecute any alcohol or drug abuse patient.[facility] CenterIn the event this information is protected by the Federal Confidentiality of Alcohol and Drug Abuse Patient Records regulations: The Federal rules restrict any use of the information to criminally investigate or prosecute any alcohol or drug abuse patient.[facility] CenterIn the event this information is protected by the Federal Confidentiality of Alcohol and Drug Abuse Patient Records regulations: The Federal rules restrict any use of the information to criminally investigate or prosecute any alcohol or drug abuse patient.[facility] CenterIn the event this information is protected by the Federal Confidentiality of Alcohol and Drug Abuse Patient Records regulations: The Federal rules restrict any use of the information to criminally investigate or prosecute any alcohol or drug abuse patient.[facility] CenterIn the event this information is protected by the Federal Confidentiality of Alcohol and Drug Abuse Patient Records regulations: The Federal rules restrict any use of the information to criminally investigate or prosecute any alcohol or drug abuse patient.[facility] CenterIn the event this information is protected by the Federal Confidentiality of Alcohol and Drug Abuse Patient Records regulations: The Federal rules restrict any use of the information to criminally investigate or prosecute any alcohol or drug abuse patient.[facility] CenterIn the event this information is protected by the Federal Confidentiality of Alcohol and Drug Abuse Patient Records regulations: The Federal rules restrict any use of the information to criminally investigate or prosecute any alcohol or drug abuse patient.[facility] CenterIn the event this information is protected by the Federal Confidentiality of Alcohol and Drug Abuse Patient Records regulations: The Federal rules restrict any use of the information to criminally investigate or prosecute any alcohol or drug abuse patient.[facility] CenterIn the event this information is protected by the Federal Confidentiality of Alcohol and Drug Abuse Patient Records regulations: The Federal rules restrict any use of the information to criminally investigate or prosecute any alcohol or drug abuse patient.[facility] CenterIn the event this information is protected by the Federal Confidentiality of Alcohol and Drug Abuse Patient Records regulations: The Federal rules restrict any use of the information to criminally investigate or prosecute any alcohol or drug abuse patient.[facility] CenterIn the event this information is protected by the Federal Confidentiality of Alcohol and Drug Abuse Patient Records regulations: The Federal rules restrict any use of the information to criminally investigate or prosecute any alcohol or drug abuse patient.[facility] Reason for Visit (unrecogniz ed section and content) ReasonCommentsResultsReasonCommentsFMLA PaperworkReasonCommentsexcision for penile lesionSpecialtyDiagnoses / ProceduresReferred By ContactReferred To ContactUrology / UROLOGY Diagnoses Penile intraepithelial neoplasia Excision Penile Lesion/ Office Procedures CYSTOURETHROSCOPY CYSTOSCOPY Edgar Cardona MD [address] [place] [address] Edgar Cardona MD [address] [place] [address] Referral IDStatusReasonStart DateExpiration DateVisits RequestedVisits [id number]/2/20226/260070VvuoneCusylgviNkokwod UpdateReason CommentsGlaucoma EvaluationSpecialtyDiagnoses / ProceduresReferred By Contact Referred To ContactOphthalmology / OPHTHALMOLOGY Diagnoses Follow-up exam Glaucoma evaluation Procedures OFFICE/OUTPATIENT NEW MODERATE MDM 45-59 MINUTES NEW EXAM SPECIAL RECaroline Castillo [address] [place] [id number] Rafaela Nova MD [address] [place] [address] Referral IDStatusReasonStart DateExpiration DateVisits RequestedVisits [id number]/16/202212/[id number] OpPost-Op Visit SpecialtyDiagnoses / ProceduresReferred By ContactReferred To Contact Diagnoses Penile lesion Procedures REFER TO PACC - PRE ANESTHESIA CONSULTATION CLINIC OFFICE/OUTPATIENT NEW HIGH MDM 60-74 MINUTES Edgar Cardona MD [address] [place] [address] Referral IDStatusReasonStart DateExpiration DateVisits RequestedVisits [id number] PCP Requested Referral /[id number]dBgneqsYdlftdgnCvgpkf UpSpecialty Diagnoses / ProceduresReferred By ContactReferred To ContactUrology / UROLOGY Diagnoses 6 mo f/u Penile lesion per cc chart Procedures OFFICE/OUTPATIENT ESTABLISHED MOD MDM 30-39 MIN EST UROL Jass Vogt MD [address] [place] [id number] Edgar Cardona MD [address] [facility] [place] [address] Referral IDStatusRe[facility] DateExpiration DateVisits RequestedVisits [id number]/30/202212/[id number] / Procedures Referred By ContactReferred To ContactUrology / UROLOGY Diagnoses Penile cancer (HCC) penile cancer, lesion of the penis 06/02 records scanned into Epic / Procedures OFFICE/OUTPATIENT ESTABLISHED MOD MDM 30-39 MIN EST UROL Self Edgar Cardona MD [address] [place] [address] Referral IDStatus[facility] DateExpiration DateVisits RequestedVisits [id number]/20/20236/[id number] ProcedurePenile ExcisionSpecialtyDiagnoses / ProceduresReferred By ContactReferred To Contact Urology / UROLOGY Diagnoses Penile lesion Penile intraepithelial neoplasia Hidden penis Incision of Penile Lesion / Per Office Penile lesion Penile intraepithelial neoplasia Hidden penis Procedures CYSTOURETHROSCOPY CYSTOSCOPY Edgar Cardona MD [address] [place] [address] Edgar Cardona MD [address] [place] [address] Ref[facility]Stat[facility] DateExpiration DateVisits RequestedVisits [id number]/24/202312/[id number] Suspect Follow UpSpecialtyDiagnoses / ProceduresReferred By ContactReferred To Contact Ophthalmology / OPHTHALMOLOGY Diagnoses Annual physical exam annual Procedures OFFICE/OUTPATIENT ESTABLISHED MOD MDM 30-39 MIN EST ADULT Rafaela Nova MD [address] [place] [address] Rafaela Nova MD [address] [place] [address] Referral IDStatusReason[place] DateExpiration DateVisits RequestedVisits [id number]/24/202312/[id number] / Procedures Referred By ContactReferred To ContactUrology / UROLOGY Diagnoses Other inflammatory disorders of penis The bump on my penis has came back. Procedures OFFICE/OUTPATIENT ESTABLISHED MOD MDM 30-39 MIN MYC SPECIALIST OFFICE VISIT Self Edgar Cardona MD [address] [place] [address] Referral IDStatusReasonStart DateExpiration DateVisits RequestedVisits [id number]/9/202312/[id number] / Procedures Referred By ContactReferred To ContactUrology / UROLOGY Diagnoses Lichen sclerosus of penis Follow-up examination 6 mo fu Lichen sclerosus of penis per cc chart Procedures OFFICE/OUTPATIENT ESTABLISHED MOD MDM 30 MIN EST UROL Edgar Cardona MD [address] [place] [address] Edgar Cardona MD [address] [place] [address] Referral IDStatusReason[place] DateExpiration DateVisits RequestedVisits [id number] OON/Self Pay Override /[id number] / ProceduresReferred By ContactReferred To ContactUrology / UROLOGY Diagnoses Penile lesion Follow-up examination 6 month f/u for penile lesion per checkout penile lesion Procedures OFFICE/OUTPATIENT ESTABLISHED MOD MDM 30 MIN EST UROL Jourdan Frias P, CODING SUPPORT SPECIALIST.SURVEILLANCE OFFICER [address] [place] [address] Jourdan Frias, CODING SUPPORT SPECIALIST.SURVEILLANCE OFFICER [address] [place] [address] Referral IDStatusReasonStart DateExpiration DateVisits RequestedVisits [id number]/25/202412/31/[id number] Apnea Care Teams (unrecognized sec tion and content) Team MemberRelationshipSpecialtyStart DateEnd Date Layton Martinezca L [address] [place] [address] PCP - GeneralFamily Practice06/15/21 Estrella Amaro [address] [place] [address] Urolog06/02/21Team MemberRelationshipSpecialtyStart DateEnd Date Juan Jasmeet L [address] [place] [address] PCP - GeneralFamily Practice06/15/21 Estrella Amaro [address] [place] [address] Urolog06/02/21Team MemberRelationshipSpecialtyStart DateEnd Date MartinezLaytonca L [address] [place] [address] PCP - GeneralFamily Practice06/15/21 Estrella Amaro [address] [place] [address] Urolog06/02/21Team MemberRelationshipSpecialtyStart DateEnd Date Juan Jasmeet L [address] [place] [phone] PCP - GeneralFamily Practice06/15/21 Estrella Amaro [address] [place] [address] Urolog06/02/21Team MemberRelationshipSpecialtyStart DateEnd Date Layton Martinezca L [address] [place] [address] PCP - GeneralFamily Practice06/15/21 Estrella Amaro [address] [address] Urology2Team MemberRelationshipSpecialtyStart DateEnd Date JuanJasmeet L [address] [place] [address] PCP - GeneralFamily Practice06/15/21 Estrella Amaro P [address] [place] [address] Urolog06/02/21Team MemberRelationshipSpecialtyStart DateEnd Date MartinezJasmeet L [address] [place] [address] PCP - GeneralFamily Practice06/15/21 Estrella Amaro [address] [place] [address] Urolog06/02/21Team MemberRelationshipSpecialtyStart DateEnd Date Layton Martinezca L [address] [place] [address] PCP - GeneralFamily Medicine06/15/21 Estrella Amaro [address] [place] [address] Urolog06/02/21Team MemberRelationshipSpecialtyStart DateEnd Date Jasmeet Martinez L [address] [place] [phone] PCP - GeneralFamily Medicine06/15/21 Estrella Amaro P [address] [place] [address] Urology2Team MemberRelationshipSpecialtyStart DateEnd Date Juan Jasmeet Parsons [address] [place] [address] PCP - Generalmily Medicine06/15/21 Estrella Amaro P [address] [place] [address] Urolog06/02/21Team MemberRelationshipSpecialtyStart DateEnd Date Juan Jasmeet Parsons [address] [place] [address] PCP - Generalmily Medicine06/15/21 Estrlela Amaro P [address] [place] [address] Urolog06/02/21Team MemberRelationshipSpecialtyStart DateEnd Date Martinez Jasmeet Parsons [address] [place] [address] PCP - GeneralFamily Medicine06/15/21 Estrella Amaro Urology2Team MemberRelationshipSpecialtyStart DateEnd Date Jasmeet Martinez [address] [place] [address] PCP - [facility] Medicine06/15/21 Estrella Amaro Urolog06/02/21Team MemberRelationshipSpecialtyStart DateEnd Date Jasmeet Martinez [address] [place] [address] PCP - [facility] Medicine06/15/21 Estrella Amaro Urolog06/02/21Team MemberRelationshipSpecialtyStart DateEnd Date Jasmeet Martinez [address] [place] [address] PCP - [facility] Medicine06/15/21 Estrella Amaro Urolog06/02/21Team MemberRelationshipSpecialtyStart DateEnd Date Jasmeet Martinez [address] [place] [address] PCP - [facility] Medicine06/15/21 Estrella Amaro Urology2Team MemberRelationshipSpecialtyStart DateEnd Date Jasmeet Martinez [address] [place] [phone] PCP - Generalmily Medicine06/15/21 Estrella Amaro MD Urolog06/02/21Team MemberRelationshipSpecialtyStart DateEnd Date Jasmeet Martinez [address] [place] [address] [facility] Estrella Amaro MD Urolog06/02/21Team MemberRelationshipSpecialtyStart DateEnd Date Jasmeet Martinez NP [address] [place] [address] Referring Physicianmily Enjkivsz22/2/24Team MemberRelationshipSpecialtyStart DateEnd Date Jasmeet Martinez NP [address] [place] [address] Referring Physicianmily Jesfbbke60/2/24Team MemberRelationshipSpecialtyStart DateEnd Date Jasmeet Martinez NP [address] [place] [address] Referring [facility]icianQu[facility] Scirqswr62/2/24 Team Status: Active Member Role Status Dates Neris De La Rosa DO Primary Care Provider Active Team Status: Inactive Member Role Status Dates Yana Moffett APRN Attending Provider Active S tart: June 19, 2024 End: June 19Samm Beltrán Care ProviderActiveStart: June 19, 2024 End: June 19, 2024Team MemberRelationshipSpecialtyStart DateEnd Date Jasmeet Martinez NP [address] [place] [address] Referring PhysicianFamily Hrphsydv55/2/24 Team Status: Inactive Member Role Status Dates Neris De La Rosa , DO Primary Care Provider Active S tart: November 27, 2024 End: November 27Judy Angulo ProviderActiveStart: November 27, 2024 End: November 27, 2024 (unrecognized sect ion and content) No Status Records FoundNo Status Records FoundNo Status Records FoundNo Status Records Found INFORMATION SOURCE (unrecogn ized section and content) DATE CREATED AUTHOR 07/29/2022 [facility] DATE CREATED AUTHOR AUTHOR'S ORGANIZ ATION 01/26/2024 [facility] DATE CREATED AUTHOR AUTHOR'S ORGANIZ ATION 01/30/2024 [facility] DATE CREATED AUTHOR AUTHOR'S ORGANIZ ATION 01/23/2025 [facility] Goals (unrecognized section and content) [...] BE BASED ON THE PRIMARY CLINICAL RECORDS. [employer] provides no warranty or guarantee of the accuracy or completeness of information in this document.
== END 2025-02-19 15:23 | disposition home or self-care (01) ==
LOC: FHNEUROLOG 15:23
PROVIDERS: Visit Provider Psychiatry & Neurology Neurology
DX: G47.33 Obstructive sleep apnea (adult) (pediatric) (principal); R06.83 Snoring; G47.10 Hypersomnia, unspecified
CPT/HCPCS: G0463